=== PATIENT | male | born 1965 | race African-American/Black ===

== ENCOUNTER 2019-03-17 20:01 | Inpatient (IN) | payer OTHER ==
[2019-03-17 23:25] VITALS: BMI 29.5
--- NOTE | 2019-03-18 04:25 | HP ---
COWS - Scale Resting Pulse: 1= [place] 81-100 Sweatin= Chills/Flushing Restless Observation: 1= Difficult to Sit Still Pupil Size: 0= Normal to Room Light Bone or Joint Aches: 4=Acute Joint/Muscle Pain Runny Nose/ Eye Tearin= None GI Upset > 30mins: 3= Vomiting/Diarrhea (vomiting x 3, diarrhea x 2) Tremor Observation: 4= Gross Tremor/Twitching Yawning Observation: 1= 1-2x During Session Anxiety or Irritability: 2=Irritable/Anxious Goose Flesh Skin: 3=Piloerection COWS Score: 20 CIWA Score - Admission Criteria OASAS Guidelines: Admission for Medically Managed Detox: Requires at least one of the followin. CIWA greater than 12 2. Seizures within the past 24 hours 3. Delirium tremens within the past 24 hours 4. Hallucinations within the past 24 hours 5. Acute intervention needed for co occurring medical disorder 6. Acute intervention needed for co occurring psychiatric disorder 7. Severe withdrawal that cannot be handled at a lower level of care (continued vomiting, continued diarrhea, abnormal vital signs) requiring intravenous medication and/or fluids 8. Admission ROS [facility] Chief Complaint: Alcohol withdrawal symptoms Allergies/Adverse Reactions: Allergies Allergy/AdvReac Type Severity Reaction Status Date / Time No Known Allergies Allergy Verified 03/17/19 23:14 History of Present Illness: 54 years old male with a long history of alcohol dependence is seeking admission to detox. Patient has be3en in multiple detox and reports insignificant period of sobriety. He has medical history of hypertension, GERD and depression. He denies suicidal ideation at this time. Patient is on Methadone4 70mg tablet at [facility]. Dose is yet to be identified by the nurse Exam Limitations: No Limitations - Ebola screening Have you traveled outside of the country in the last 21 days: No (N) Have you had contact with anyone from an Ebola affected area: No Do you have a fever: No - Review of Systems Constitutional: Chills, Loss of Appetite, Malaise, Changes in sleep EENT: reports: No Symptoms Reported Respiratory: reports: No Symptoms reported Cardiac: reports: No Symptoms Reported GI: reports: Diarrhea, Nausea, Poor Appetite, Poor Fluid Intake, Abdominal cramping : reports: No Symptoms Reported Musculoskeletal: reports: Back Pain, Joint Pain, Muscle Pain Integumentary: reports: Dryness, Flushing Neuro: reports: Tremors Endocrine: reports: No Symptoms Reported Hematology: reports: No Symptoms Reported Psychiatric: reports: Anxious Other Systems: Reviewed and Negative Patient History - Patient Medical History Hx Asthma: Yes (Pt is on MDI.) Hx Chronic Obstructive Pulmonary Disease (COPD): No Hx Cardiac Disorders: No Hx Hypertension: Yes (on meds.) Hx Seizures: No Hx Diabetes: No Hx Gastrointestinal Disorders: Yes (Pt has GERD.) Hx Liver Disease: No Hx Genitourinary Disorders: No Hx Sexually Transmitted Disorders: No Hx Renal Disease (ESRD): No Hx Thyroid Disease: No Hx Human Immunodeficiency Virus (HIV): No (last 03/31) Hx Hepatitis C: Yes Hx Depression: Yes Hx Suicide Attempt: No Hx Bipolar Disorder: No Hx Schizophrenia: No - Patient Surgical History Past Surgical History: Yes Hx Neurologic Surgery: No Hx Cataract Extraction: No Hx Cardiac Surgery: No Hx Lung Surgery: No Hx Abdominal Surgery: No Hx Appendectomy: No Hx Cholecystectomy: No Hx Genitourinary Surgery: No Hx Section: No Hx Orthopedic Surgery: No Other Surgical History: SKIN GRAFT at agec 6 Anesthesia Reaction: No - PPD History Previous Implant?: No (PPD POSITIVE) PPD to be Administered?: No - Reproductive History Patient is a Female of Child Bearing Age (11 -55 yrs old): No (male) - Smoking Cessation Smoking history: Current every day smoker Have you smoked in the past 12 months: Yes Aproximately how many cigarettes per day: 4 Hx Chewing Tobacco Use: No Initiated information on smoking cessation: Yes 'Breaking Loose' booklet given: 03/18/19 - Substance & Tx. History Hx Alcohol Use: Yes Hx Substance Use: Yes Substance Use Type: Alcohol, Cocaine Hx Substance Use Treatment: Yes - Substances abused Alcohol Substance route: Oral Frequency: Daily Amount used: 3 pints Age of first use: 18 Date of last use: 03/17/19 Family Disease History - Family Disease History Family History: Denies Admission Physical Exam BHS - Vital Signs Vital Signs: Vital Signs - 24 hr 03/17/19 23:16 Temperature 98.6 F Pulse Rate 87 Respiratory 20 Rate Blood Pressure 160/101 H - Physical General Appearance: Yes: Moderate Distress, Tremorous, Irritable, Anxious HEENTM: Yes: Within Normal Limits Respiratory: Yes: Lungs Clear, Normal Breath Sounds, No Respiratory Distress Neck: Yes: Supple Breast: Yes: Breast Exam Deferred Cardiology: Yes: Regular Rhythm, Regular Rate Abdominal: Yes: Normal Bowel Sounds Genitourinary: Yes: Within Normal Limits Back: Yes: Normal Inspection Musculoskeletal: Yes: Within Normal Limits Extremities: Yes: Tremors Neurological: Yes: Within Normal Limits Integumentary: Yes: Warm Lymphatic: Yes: Within Normal Limits Cleared for Admission S - Detox or Rehab [facility] Level of Care: Medically Managed Detox Regimen/Protocol: Librium Breathalyzer - Breathalyzer Breathalyzer: 0.070 Urine Drug Screen - Test Device Lot number: [id number] Expiration date: 11/13/20 - Control Is test valid?: Yes - Results Drug screen NEGATIVE: No Urine drug screen results: MTD-Methadone, BZO-Benzodiazepines Inpatient Rehab Admission - Rehab Decision to Admit Inpatient rehab admission?: No
[2019-03-18] MEDS ORDERED: MENTHOL/PHENOL 1 EACH UD MM PRN (04:36)
[2019-03-18] MEDS ORDERED: IBUPROFEN 400 MG TABLET (FP) PO PRN (04:36)
[2019-03-18] MEDS ORDERED: ACETAMINOPHEN 325 MG TABLET (FP) PO PRN ×2 (04:36)
[2019-03-18] MEDS ORDERED: MAG HYDROX/AL HYDROX/SIMETH 30 ML UNIT-DOSE CUP PO PRN (04:36)
[2019-03-18] MEDS ORDERED: MAGNESIUM CITRATE 300 ML BOTTLE PO PRN (04:36)
[2019-03-18] MEDS ORDERED: BISMUTH SUBSALICYLATE 524 MG/30 ML UD PO PRN (04:36)
[2019-03-18] MEDS ORDERED: hydrOXYzine PAMOATE 25 MG CAPSULE (FP) PO PRN (04:36)
[2019-03-18] MEDS ORDERED: MAGNESIUM HYDROX 2400MG/30ML ORAL SUSPENSION 30 ML CUP PO PRN (04:36)
[2019-03-18] MEDS ORDERED: chlordiazePOXIDE HCL 10 MG CAPSULE PO PRN (04:48)
[2019-03-18] MEDS: chlordiazePOXIDE HCL 25 MG CAPSULE PO SCH ×3 (05:45→22:02)
[2019-03-18] MEDS: METHOCARBAMOL 500 MG TABLET PO PRN ×2 (07:22→14:57)
[2019-03-18] MEDS ORDERED: METHADONE HCL 10 MG TABLET PO ONE (08:26)
[2019-03-18] MEDS ORDERED: METHADONE 40 MG, METHADONE 30 MG PO ONE (08:35)
[2019-03-18] MEDS ORDERED: METHADONE HCL 40 MG DISPERSABLE TABLET ONE (08:52)
[2019-03-18] MEDS ORDERED: METHADONE HCL 10 MG TABLET ONE (08:52)
[2019-03-18] MEDS: PRENATAL VITAMINS W/ FOLIC ACID TABLET (FP) PO SCH (10:07)
[2019-03-18] MEDS: ENALAPRIL MALEATE 10 MG TABLET (FP) PO SCH ×2 (10:07→22:48)
--- NOTE | 2019-03-18 14:19 | PN ---
S Progress Note Note: SAW PT ON ROUNDS SITTING IN WHEELCHAIR AND ADMITTED VERY EARLY THIS MORNING. PT C/O MUSCLE SPASMS TO HIS LEGS AND HANDS. STATES IT'S CHRONIC AND GOES AWAY AFTER AWHILE. PT APPEARS TIRED AND SLIGHTLY DROWSY. Vital Signs 03/18/19 03/18/19 03/18/19 07:02 08:17 09:36 Temperature 98.2 F 98.2 F 98.4 F Pulse Rate 91 H 91 H 93 H Respiratory 20 20 18 Rate Blood Pressure 140/80 140/80 140/81 03/18/19 13:20 Temperature 98.3 F Pulse Rate 88 Respiratory 18 Rate Blood Pressure 146/79 MONITOR PT COMFORT CONTINUE DETOX
[2019-03-18] MEDS: THIAMINE HCL 100 MG TABLET (FP) PO SCH (22:02)
[2019-03-18] MEDS: MELATONIN 5 MG TABLETS PO PRN (22:02)
[2019-03-19] MEDS ORDERED: METHADONE HCL 10 MG TABLET ONE (04:26)
[2019-03-19] MEDS ORDERED: METHADONE HCL 40 MG DISPERSABLE TABLET ONE (04:27)
[2019-03-19] MEDS: chlordiazePOXIDE 5 MG CAPSULE PO SCH ×2 (05:26→12:27)
[2019-03-19] MEDS: METHADONE 40 MG, METHADONE 30 MG PO SCH (05:27)
[2019-03-19] MEDS ORDERED: METHADONE HCL 10 MG TABLET PO SCH (06:00)
[2019-03-19] MEDS: ENALAPRIL MALEATE 10 MG TABLET (FP) PO SCH ×2 (10:09→22:32)
[2019-03-19] MEDS: PRENATAL VITAMINS W/ FOLIC ACID TABLET (FP) PO SCH (10:09)
--- NOTE | 2019-03-19 10:40 | PN ---
BHS COWS - Scale Resting Pulse: 1= [place] 81-100 Sweatin= Beads of Sweat on Face Restless Observation: 1= Difficult to Sit Still Pupil Size: 0= Normal to Room Light Bone or Joint Aches: 2= Severe Diffuse Aches Runny Nose/ Eye Tearin= None GI Upset > 30mins: 0= None Tremor Observation of Outstretched Hands: 2= Slight Tremor Visible Yawning Observation: 1= 1-2x During Session Anxiety or Irritability: 2=Irritable/Anxious Goose Flesh Skin: 0=Smooth Skin COWS Score: 12 S Progress Note (SOAP) Subjective: c/o sweats, irritability, shakes, and muscle pain. Objective: 03/19/19 10:39 Vital Signs 03/19/19 03/19/19 03/19/19 03:30 06:00 09:26 Temperature 98.6 F 98.8 F Pulse Rate 94 H 119 H Respiratory 18 18 14 Rate Blood Pressure 146/87 122/75 Labs pending. Assessment: 03/19/19 10:39 AOX3, in no acute respiratory distress Full ROM withdrawal symptoms. Plan: continue detox.
--- NOTE | 2019-03-19 12:42 | PN ---
S CIWA - CIWA Score Nausea/Vomitin-No Nausea/No Vomiting Muscle Tremors: 2 Anxiety: 3 Agitation: 2 Paroxysmal Sweats: 3 Orientation: 0-Oriented Tacttile Disturbances: 0-None Auditory Disturbances: 0-None Visual Disturbances: 0-None Headache: 2-Mild CIWA-Ar Total Score: 12
[2019-03-19 13:03] LABS: HEMATOCRIT 36.3 % (35.4-49); MCH 34.5 pg (25.7-33.7); MEAN CELL VOLUME 104.4 fl (80-96); MEAN PLT VOLUME 10.3 fl (7.5-11.1); RBC 3.47 M/mm3 (4.00-5.60)
[2019-03-19 13:36] LABS: PLATELET COUNT 31 K/MM3 (134-434)
[2019-03-19 13:43] LABS: ALBUMIN 3.4 g/dl (3.4-5.0); BILIRUBIN,TOTAL 2.6 mg/dL (0.2-1); BLOOD UREA NITROGEN 4.7 mg/dL (7-18); CALCIUM 8.3 mg/dL (8.5-10.1); CREATININE 0.6 mg/dL (0.55-1.3); POTASSIUM 3.3 mmol/L (3.5-5.1); TOT PROT 8.4 g/dl (6.4-8.2)
--- NOTE | 2019-03-19 14:46 | PN ---
[facility] Progress Note Note: S: I was called by the RN that pt has a critical value of platelet count 31k/ mm3. Pt states that one and a half weeks ago he went to the hospital and when he was given a bottle to urinate for a urine sample, "I pee blood". Pt denies any bleeding at the moment. Denies any dizziness, lightheadedness, N/V, chest pain, or SOB at this time. O: Vital Signs 03/19/19 03/19/19 09:26 14:24 Temperature 98.8 F 97.2 F L Pulse Rate 119 H 107 H Respiratory 14 16 Rate Blood Pressure 122/75 124/78 Laboratory Last Values WBC 3.0 K/mm3 (4.0-10.0) L 03/19/19 08:00 RBC 3.47 M/mm3 (4.00-5.60) L 03/19/19 08:00 Hgb 12.0 GM/dL (11.7-16.9) 03/19/19 08:00 Hct 36.3 % (35.4-49) 03/19/19 08:00 MCV 104.4 fl (80-96) H 03/19/19 08:00 MCH 34.5 pg (25.7-33.7) H 03/19/19 08:00 MCHC 33.0 g/dl (32.0-35.9) 03/19/19 08:00 RDW 15.0 % (11.9-15.9) D 03/19/19 08:00 Plt Count 31 K/MM3 (134-434) L* D 03/19/19 08:00 MPV 10.3 fl (7.5-11.1) 03/19/19 08:00 Sodium 139 mmol/L (136-145) 03/19/19 08:00 Potassium 3.3 mmol/L (3.5-5.1) L 03/19/19 08:00 Chloride 101 mmol/L (98-107) 03/19/19 08:00 Carbon Dioxide 32 mmol/L (21-32) 03/19/19 08:00 Anion Gap 6 MMOL/L (8-16) L 03/19/19 08:00 BUN 4.7 mg/dL (7-18) L 03/19/19 08:00 Creatinine 0.6 mg/dL (0.55-1.3) 03/19/19 08:00 Est GFR (CKD-EPI)AfAm 133.04 03/19/19 08:00 Est GFR (CKD-EPI)NonAf 114.79 03/19/19 08:00 Random Glucose 89 mg/dL (74-106) 03/19/19 08:00 Calcium 8.3 mg/dL (8.5-10.1) L 03/19/19 08:00 Total Bilirubin 2.6 mg/dL (0.2-1) H 03/19/19 08:00 AST 244 U/L (15-37) H 03/19/19 08:00 ALT 66 U/L (13-61) H 03/19/19 08:00 Alkaline Phosphatase 83 U/L (45-117) 03/19/19 08:00 Total Protein 8.4 g/dl (6.4-8.2) H 03/19/19 08:00 Albumin 3.4 g/dl (3.4-5.0) 03/19/19 08:00 RPR Titer Nonreactive (NONREACTIVE) 03/19/19 08:00 Labs reviewed. A: Pt was seen at bedside alert and oriented x3 and in no respiratory distress. Thrombocytopenia. Pt has history of thrombocytopenia since 2016. Hypokalemia. K+ level of 3.3 AST is 244U/L P: urinalysis repeat cmp repeat cbc potassium chloride 40meq po once. Change librium protocol to ativan protocol. monitor for any bleeding.
[2019-03-19] MEDS ORDERED: POTASSIUM CHLORIDE TABS 20 MEQ TABLET.ER (FP) PO ONE (14:48)
[2019-03-19] MEDS: LORazepam 2 MG TABLET PO SCH ×2 (18:18→22:33)
[2019-03-19] MEDS: THIAMINE HCL 100 MG TABLET (FP) PO SCH (22:32)
[2019-03-19] MEDS: MELATONIN 5 MG TABLETS PO PRN (22:33)
[2019-03-20] MEDS ORDERED: chlordiazePOXIDE HCL 10 MG CAPSULE PO PRN
[2019-03-20] MEDS ORDERED: METHADONE HCL 10 MG TABLET ONE (04:07)
[2019-03-20] MEDS ORDERED: METHADONE HCL 40 MG DISPERSABLE TABLET ONE (04:08)
[2019-03-20] MEDS ORDERED: chlordiazePOXIDE HCL 10 MG CAPSULE PO SCH (05:00)
[2019-03-20] MEDS: LORazepam 2 MG TABLET PO SCH ×4 (05:49→22:10)
[2019-03-20] MEDS: METHADONE 40 MG, METHADONE 30 MG PO SCH (05:50)
[2019-03-20] MEDS: ENALAPRIL MALEATE 10 MG TABLET (FP) PO SCH ×2 (10:13→22:10)
[2019-03-20] MEDS: PRENATAL VITAMINS W/ FOLIC ACID TABLET (FP) PO SCH (10:13)
[2019-03-20 10:20] LABS: BASO % 0.6 % (0-2.0); EOS % 1.2 % (0-4.5); HEMATOCRIT 38.3 % (35.4-49); HEMOGLOBIN 12.7 GM/dL (11.7-16.9); LYMPH % 39.2 % (8-40); MCH 34.8 pg (25.7-33.7); MCHC 33.2 g/dl (32.0-35.9); MEAN CELL VOLUME 104.9 fl (80-96); RBC 3.65 M/mm3 (4.00-5.60); RDW 14.6 % (11.9-15.9); WHITE BLOOD COUNT 4.5 K/mm3 (4.0-10.0)
[2019-03-20 10:30] LABS: ALBUMIN 3.5 g/dl (3.4-5.0); BILIRUBIN,TOTAL 2.6 mg/dL (0.2-1); BLOOD UREA NITROGEN 7.4 mg/dL (7-18); CREATININE 0.8 mg/dL (0.55-1.3); POTASSIUM 3.7 mmol/L (3.5-5.1); TOT PROT 8.8 g/dl (6.4-8.2)
--- NOTE | 2019-03-20 10:42 | PN ---
S CIWA - CIWA Score Nausea/Vomitin-Mild Nausea/No Vomiting Muscle Tremors: 1-None Visible, but [place] Anxiety: 1-Mildly Anxious Agitation: 0-Normal Activity Paroxysmal Sweats: 1-Minimal Palms Moist Orientation: 0-Oriented Tacttile Disturbances: 1-Very Mild Itch/Numbness Auditory Disturbances: 0-None Visual Disturbances: 0-None Headache: 1-Very Mild CIWA-Ar Total Score: 6 BHS COWS - Scale Resting Pulse: 1= [place] 81-100 Sweatin= Chills/Flushing Restless Observation: 1= Difficult to Sit Still Pupil Size: 1= Pupils >than Normal Bone or Joint Aches: 1= Mild Discomfort Runny Nose/ Eye Tearin= None GI Upset > 30mins: 0= None Tremor Observation of Outstretched Hands: 1= Tremor [place], Not Seen Yawning Observation: 0= None Anxiety or Irritability: 1=Feels Anxious/Irritable Goose Flesh Skin: 0=Smooth Skin COWS Score: 7 S Progress Note (SOAP) Subjective: interrupted sleep, mild sweats Objective: 03/20/19 10:38 Vital Signs Temperature 98.2 F 03/20/19 06:41 Pulse Rate 90 03/20/19 06:41 Respiratory Rate 18 03/20/19 06:41 Blood Pressure 147/91 03/20/19 06:41 O2 Sat by Pulse Oximetry (%) Laboratory Tests 03/19/19 03/19/19 03/19/19 08:00 08:00 08:00 WBC 3.0 L RBC 3.47 L Hgb 12.0 Hct 36.3 MCV 104.4 H MCH 34.5 H MCHC 33.0 RDW 15.0 D Plt Count 31 L* D MPV 10.3 Sodium 139 Potassium 3.3 L Chloride 101 Carbon Dioxide 32 Anion Gap 6 L BUN 4.7 L Creatinine 0.6 Est GFR (CKD-EPI)AfAm 133.04 Est GFR (CKD-EPI)NonAf 114.79 Random Glucose 89 Calcium 8.3 L Total Bilirubin 2.6 H AST 244 H ALT 66 H Alkaline Phosphatase 83 Total Protein 8.4 H Albumin 3.4 RPR Titer Nonreactive 03/20/19 07:50 WBC RBC Hgb Hct MCV MCH MCHC RDW Plt Count MPV Sodium 136 Potassium 3.7 Chloride 100 Carbon Dioxide 28 Anion Gap 7 L BUN 7.4 Creatinine 0.8 Est GFR (CKD-EPI)AfAm 118.20 Est GFR (CKD-EPI)NonAf 101.99 Random Glucose 102 Calcium 9.0 Total Bilirubin 2.6 H AST 212 H ALT 66 H Alkaline Phosphatase 91 Total Protein 8.8 H Albumin 3.5 RPR Titer pt lying in , stood up well and ambulating well , in nad no bleeding Assessment: 03/20/19 10:40 withdrawal sx's thrombocytopenia -no bleeding , repeat labs pending leucocytosis , repeat pending elevated transaminases hypokalemia corrected 03/20/19 10:46 Plan: cont. detox increase fluids d/c tylenol d/c motrin f/up pending labs
[2019-03-20 10:50] LABS: PLATELET COUNT 41 K/MM3 (134-434)
[2019-03-20] MEDS: THIAMINE HCL 100 MG TABLET (FP) PO SCH (22:10)
[2019-03-20] MEDS: MELATONIN 5 MG TABLETS PO PRN (22:10)
[2019-03-21] MEDS ORDERED: METHADONE HCL 10 MG TABLET ONE (04:30)
[2019-03-21] MEDS ORDERED: METHADONE HCL 40 MG DISPERSABLE TABLET ONE (04:30)
[2019-03-21] MEDS ORDERED: chlordiazePOXIDE HCL 10 MG CAPSULE PO ONE (05:00)
[2019-03-21] MEDS: LORazepam 1 MG TABLET PO SCH ×2 (05:39→10:47)
[2019-03-21] MEDS: METHADONE 40 MG, METHADONE 30 MG PO SCH (05:40)
[2019-03-21 09:39] VITALS: PULSE 101
[2019-03-21] MEDS: ENALAPRIL MALEATE 10 MG TABLET (FP) PO SCH (10:47)
[2019-03-21] MEDS: PRENATAL VITAMINS W/ FOLIC ACID TABLET (FP) PO SCH (10:47)
[2019-03-21 13:18] VITALS: BP 102/65
[2019-03-21 13:55] VITALS: TEMP 98.1
--- NOTE | 2019-03-21 15:50 | PN ---
S CIWA - CIWA Score Nausea/Vomitin-No Nausea/No Vomiting Muscle Tremors: 2 Anxiety: 3 Agitation: 3 Paroxysmal Sweats: 3 Orientation: 1-Uncertain about Date Tacttile Disturbances: 0-None Auditory Disturbances: 0-None Visual Disturbances: 0-None Headache: 0-None Present CIWA-Ar Total Score: 12 BHS Progress Note (SOAP) Subjective: Pt c/o anxiety, sweats, and shakes. Objective: 03/21/19 15:43 Vital Signs 03/21/19 03/21/19 03/21/19 07:55 09:38 13:17 Temperature 98.1 F 97.5 F L 98.4 F Pulse Rate 99 H 101 H 101 H Respiratory 20 18 18 Rate Blood Pressure 120/75 100/68 102/65 03/21/19 13:54 Temperature 98.1 F Pulse Rate 101 H Respiratory 18 Rate Blood Pressure 102/65 Lab Results WBC 4.5 K/mm3 (4.0-10.0) 03/20/19 07:50 RBC 3.65 M/mm3 (4.00-5.60) L 03/20/19 07:50 Hgb 12.7 GM/dL (11.7-16.9) 03/20/19 07:50 Hct 38.3 % (35.4-49) 03/20/19 07:50 MCV 104.9 fl (80-96) H 03/20/19 07:50 MCHC 33.2 g/dl (32.0-35.9) 03/20/19 07:50 RDW 14.6 % (11.9-15.9) 03/20/19 07:50 Plt Count 41 K/MM3 (134-434) L D 03/20/19 07:50 Sodium 136 mmol/L (136-145) 03/20/19 07:50 Potassium 3.7 mmol/L (3.5-5.1) 03/20/19 07:50 Chloride 100 mmol/L (98-107) 03/20/19 07:50 Carbon Dioxide 28 mmol/L (21-32) 03/20/19 07:50 Anion Gap 7 MMOL/L (8-16) L 03/20/19 07:50 BUN 7.4 mg/dL (7-18) 03/20/19 07:50 Creatinine 0.8 mg/dL (0.55-1.3) 03/20/19 07:50 Random Glucose 102 mg/dL (74-106) 03/20/19 07:50 Calcium 9.0 mg/dL (8.5-10.1) 03/20/19 07:50 Labs reviewed. Assessment: Pt is alert and oriented x1, and in no respiratory distress. 03/21/19 15:52 Plan: continue detox. continue to monitor.
--- NOTE | 2019-03-21 15:57 | DS ---
[facility] Summary Admission Date: 03/18/19 Discharge Date: 03/21/19 (Left AMA) - History Present History: Alcohol Dependence, Cocaine Dependence, MMTP Additional Comments: During morning rounds, pt is alert and verbally responsive but unable to state the date, year and the current present of the [facility]. Pt is agitated because he wants to leave AMA. Pt states he does not know where he leaves. Pt is disoriented, verbal report given to Dr Hollis at [facility] ER for evaluation of change in mental status. Upon arrival of the EMS, as per EMS pt is refusing to go to the ER for evaluation and also as per EMS pt is answering questions correctly. Pt refused to go with EMS. Importance of staying and completing his detox protocol explained to pt but to no avail. Pt left AMA. Pertinent Past History: H/o alcohol, cocaine use disorder, HTN, GERD, and Asthma. - Physical Exam Results Vital Signs: Vital Signs Temperature 98.1 F 03/21/19 13:54 Pulse Rate 101 H 03/21/19 13:54 Respiratory Rate 18 03/21/19 13:54 Blood Pressure 102/65 03/21/19 13:54 O2 Sat by Pulse Oximetry (%) Vital Signs 03/21/19 03/21/19 03/21/19 09:38 13:17 13:54 Temperature 97.5 F L 98.4 F 98.1 F Pulse Rate 101 H 101 H 101 H Respiratory 18 18 18 Rate Blood Pressure 100/68 102/65 102/65 Lab Results WBC 4.5 K/mm3 (4.0-10.0) 03/20/19 07:50 RBC 3.65 M/mm3 (4.00-5.60) L 03/20/19 07:50 Hgb 12.7 GM/dL (11.7-16.9) 03/20/19 07:50 Hct 38.3 % (35.4-49) 03/20/19 07:50 MCV 104.9 fl (80-96) H 03/20/19 07:50 MCHC 33.2 g/dl (32.0-35.9) 03/20/19 07:50 RDW 14.6 % (11.9-15.9) 03/20/19 07:50 Plt Count 41 K/MM3 (134-434) L D 03/20/19 07:50 Sodium 136 mmol/L (136-145) 03/20/19 07:50 Potassium 3.7 mmol/L (3.5-5.1) 03/20/19 07:50 Chloride 100 mmol/L (98-107) 03/20/19 07:50 Carbon Dioxide 28 mmol/L (21-32) 03/20/19 07:50 Anion Gap 7 MMOL/L (8-16) L 03/20/19 07:50 BUN 7.4 mg/dL (7-18) 03/20/19 07:50 Creatinine 0.8 mg/dL (0.55-1.3) 03/20/19 07:50 Random Glucose 102 mg/dL (74-106) 03/20/19 07:50 Calcium 9.0 mg/dL (8.5-10.1) 03/20/19 07:50 Labs noted. Pertinent Admission Physical Exam Findings: withdrawal symptoms. - Treatment Hospital Course: Detox Protocol Followed - Medication Discharge Medications: Ambulatory Orders Enalapril Maleate [Vasotec] 20 mg PO BID 07/18/16 Ibuprofen [Motrin -] 600 mg PO Q6H PRN 07/18/16 Omeprazole 20 mg PO BID 07/18/16 Methadone [Dolophine -] 70 mg PO DAILY 03/17/19 - Diagnosis (1) Alcohol dependence with uncomplicated withdrawal Status: Acute (2) Asthma Status: Chronic (3) Hepatitis C Status: Acute (4) Hypertension Status: Chronic (5) Methadone maintenance therapy patient Status: Acute (6) Nicotine dependence Status: Acute (7) Syncope Status: Acute - AMA Did Patient Leave Against Medical Advice: Yes
[2019-03-22] MEDS ORDERED: LORazepam 0.5 MG TABLET PO PRN
[2019-03-22] MEDS ORDERED: LORazepam 0.5 MG TABLET PO SCH (05:00)
[2019-03-23] MEDS ORDERED: LORazepam 0.5 MG TABLET PO ONE (05:00)
== END 2019-03-21 15:16 | disposition left against medical advice (07) | DRG 770 ==
LOC: YASAS 20:01 → Y6N 03-18 04:47
PROVIDERS: ADMIT Surgery; ATTEND Surgery
PROC: HZ2ZZZZ Detoxification Services for Substance Abuse Treatment (ICD-10-PCS; principal; 2019-03-18)
DX: F10.230 Alcohol dependence with withdrawal, uncomplicated (principal); F11.20 Opioid dependence, uncomplicated; F14.20 Cocaine dependence, uncomplicated; F13.10 Sedative, hypnotic or anxiolytic abuse, uncomplicated; F17.210 Nicotine dependence, cigarettes, uncomplicated; I10 Essential (primary) hypertension; J45.909 Unspecified asthma, uncomplicated; K21.9 Gastro-esophageal reflux disease without esophagitis; B18.2 Chronic viral hepatitis C; R55 Syncope and collapse; D69.6 Thrombocytopenia, unspecified; D72.829 Elevated white blood cell count, unspecified; E87.6 Hypokalemia; R74.0 Nonspecific elevation of levels of transaminase and lactic acid dehydrogenase [LDH]; R76.11 Nonspecific reaction to tuberculin skin test without active tuberculosis
CPT/HCPCS: 36415; 71045-TC-FY; 80053; 85025; 85027; 86593

== ENCOUNTER 2020-11-08 16:36 | Inpatient (IN) | payer OTHER ==
[2020-11-08 17:47] VITALS: BMI 38.0
[2020-11-08] MEDS ORDERED: ONDANSETRON *ODT* 4 MG TABLET SL PRN (19:38)
[2020-11-08] MEDS ORDERED: ACETAMINOPHEN 325 MG TABLET (FP) PO PRN (19:38)
[2020-11-08] MEDS ORDERED: MAG HYDROX/AL HYDROX/SIMETH 30 ML UNIT-DOSE CUP PO PRN (19:38)
[2020-11-08] MEDS ORDERED: METHOCARBAMOL 500 MG TABLET PO PRN (19:38)
[2020-11-08] MEDS ORDERED: NICOTINE POLACRILEX 2 MG GUM BUC PRN (19:38)
[2020-11-08] MEDS ORDERED: hydrOXYzine PAMOATE 25 MG CAPSULE (FP) PO PRN (19:38)
[2020-11-08] MEDS ORDERED: MENTHOL/PHENOL 1 EACH UD MM PRN (19:38)
[2020-11-08] MEDS ORDERED: IBUPROFEN 400 MG TABLET (FP) PO PRN (19:38)
[2020-11-08] MEDS ORDERED: MAGNESIUM CITRATE 300 ML BOTTLE PO PRN (19:38)
[2020-11-08] MEDS ORDERED: chlordiazePOXIDE HCL 25 MG CAPSULE PO PRN (19:38)
[2020-11-08] MEDS ORDERED: BISMUTH SUBSALICYLATE 524 MG/30 ML UD PO PRN (19:38)
[2020-11-08] MEDS ORDERED: MAGNESIUM HYDROX 2400MG/30ML ORAL SUSPENSION 30 ML CUP PO PRN (19:38)
[2020-11-08] MEDS: MELATONIN 5 MG TABLETS PO SCH (22:36)
[2020-11-08] MEDS: FAMOTIDINE 20 MG TABLET PO SCH (22:36)
[2020-11-08] MEDS: LACTULOSE 20 GM/30 ML UDC (FOR ORAL USE ONLY) PO SCH (22:37)
[2020-11-08] MEDS: THIAMINE HCL 100 MG TABLET (FP) PO SCH (22:37)
[2020-11-08] MEDS: PRENATAL VITAMINS W/ FOLIC ACID TABLET (FP) PO SCH (23:07)
[2020-11-08] MEDS: chlordiazePOXIDE HCL 25 MG CAPSULE PO SCH (23:07)
[2020-11-08] MEDS: NICOTINE 7 MG/24 HOURS TOPICAL PATCH TD SCH (23:08)
[2020-11-08] MEDS: MINERAL OIL/PETROLAT/WATER TOPICAL CREAM 113 GM JAR TP SCH (23:08)
[2020-11-09] MEDS: FUROSEMIDE 40 MG TABLET (FP) PO SCH ×2 (05:53→17:52)
[2020-11-09] MEDS: chlordiazePOXIDE HCL 25 MG CAPSULE PO SCH ×4 (05:54→22:08)
[2020-11-09] MEDS ORDERED: FUROSEMIDE 40 MG TABLET (FP) PO SCH (06:00)
[2020-11-09] MEDS ORDERED: METHADONE HCL 10 MG TABLET PO SCH (09:30)
[2020-11-09] MEDS ORDERED: METHADONE HCL 40 MG DISPERSABLE TABLET ONE (09:46)
[2020-11-09] MEDS ORDERED: METHADONE HCL 10 MG TABLET ONE (09:46)
[2020-11-09] MEDS: SPIRONOLACTONE 25 MG TABLET PO SCH (10:14)
[2020-11-09] MEDS: LACTULOSE 20 GM/30 ML UDC (FOR ORAL USE ONLY) PO SCH ×2 (10:14→22:13)
[2020-11-09] MEDS: NADOLOL 20 MG TABLET (FP) PO SCH (10:14)
[2020-11-09] MEDS: METHADONE 40 MG, METHADONE 30 MG PO SCH (10:14)
[2020-11-09] MEDS: FAMOTIDINE 20 MG TABLET PO SCH ×2 (10:15→22:08)
[2020-11-09] MEDS: NICOTINE 7 MG/24 HOURS TOPICAL PATCH TD SCH (10:15)
[2020-11-09] MEDS: MINERAL OIL/PETROLAT/WATER TOPICAL CREAM 113 GM JAR TP SCH ×2 (10:15→22:10)
[2020-11-09] MEDS: PRENATAL VITAMINS W/ FOLIC ACID TABLET (FP) PO SCH (10:15)
[2020-11-09 13:46] LABS: POTASSIUM 3.4 mmol/L (3.5-5.1)
[2020-11-09 13:48] LABS: HEMATOCRIT 31.7 % (35.4-49); MCH 27.3 pg (25.7-33.7); MCHC 31.5 g/dl (32.0-35.9); MEAN CELL VOLUME 86.8 fl (80-96); MEAN PLT VOLUME 10.1 fl (7.5-11.1); PLATELET COUNT 107 K/MM3 (134-434); RBC 3.65 M/mm3 (4.00-5.60); RDW 22.3 % (11.9-15.9); WHITE BLOOD COUNT 5.4 K/mm3 (4.0-10.0)
[2020-11-09 13:50] LABS: ALBUMIN 3.3 g/dl (3.4-5.0)
[2020-11-09 13:51] LABS: BLOOD UREA NITROGEN 3.5 mg/dL (7-18); CALCIUM 8.3 mg/dL (8.5-10.1)
[2020-11-09 13:53] LABS: CREATININE 0.7 mg/dL (0.55-1.3)
[2020-11-09 13:55] LABS: BILIRUBIN,TOTAL 2.2 mg/dL (0.2-1)
[2020-11-09 13:58] LABS: TOT PROT 9.4 g/dl (6.4-8.2)
[2020-11-09] MEDS ORDERED: POTASSIUM CHLORIDE ORAL LIQUID 20 MEQ/15 ML PO ONE (14:32)
[2020-11-09] MEDS: GABAPENTIN 300 MG CAPSULE PO SCH (22:08)
[2020-11-09] MEDS: POTASSIUM CHLORIDE ORAL LIQUID 20 MEQ/15 ML PO SCH (22:09)
[2020-11-09] MEDS: MELATONIN 5 MG TABLETS PO SCH (22:09)
[2020-11-09] MEDS: THIAMINE HCL 100 MG TABLET (FP) PO SCH (22:12)
[2020-11-10] MEDS ORDERED: METHADONE HCL 40 MG DISPERSABLE TABLET ONE (05:06)
[2020-11-10] MEDS ORDERED: METHADONE HCL 10 MG TABLET ONE (05:06)
[2020-11-10] MEDS: chlordiazePOXIDE HCL 25 MG CAPSULE PO SCH ×4 (06:41→22:23)
[2020-11-10] MEDS: METHADONE 40 MG, METHADONE 30 MG PO SCH (06:41)
[2020-11-10] MEDS: FUROSEMIDE 40 MG TABLET (FP) PO SCH ×2 (06:45→18:22)
[2020-11-10 11:16] LABS: POTASSIUM 3.3 mmol/L (3.5-5.1)
[2020-11-10 11:18] LABS: ALBUMIN 3.1 g/dl (3.4-5.0); CALCIUM 8.1 mg/dL (8.5-10.1)
[2020-11-10 11:21] LABS: CREATININE 0.9 mg/dL (0.55-1.3)
[2020-11-10 11:23] LABS: BILIRUBIN,TOTAL 2.6 mg/dL (0.2-1); TOT PROT 9.1 g/dl (6.4-8.2)
[2020-11-10 11:29] LABS: HEMATOCRIT 32.6 % (35.4-49); HEMOGLOBIN 10.3 GM/dL (11.7-16.9); MCH 27.5 pg (25.7-33.7); MCHC 31.8 g/dl (32.0-35.9); MEAN CELL VOLUME 86.4 fl (80-96); MEAN PLT VOLUME 9.7 fl (7.5-11.1); PLATELET COUNT 107 K/MM3 (134-434); RBC 3.77 M/mm3 (4.00-5.60); RDW 22.2 % (11.9-15.9); WHITE BLOOD COUNT 6.3 K/mm3 (4.0-10.0)
[2020-11-10 11:33] LABS: INR 1.73 (0.83-1.09); PROTHROMBIN TIME (PATIENT) 20.6 SEC (9.7-13.0)
[2020-11-10] MEDS: MINERAL OIL/PETROLAT/WATER TOPICAL CREAM 113 GM JAR TP SCH ×2 (11:44→22:26)
[2020-11-10] MEDS: NADOLOL 20 MG TABLET (FP) PO SCH (11:44)
[2020-11-10] MEDS: SPIRONOLACTONE 25 MG TABLET PO SCH (11:44)
[2020-11-10] MEDS: LACTULOSE 20 GM/30 ML UDC (FOR ORAL USE ONLY) PO SCH ×3 (11:44→22:21)
[2020-11-10] MEDS: FAMOTIDINE 20 MG TABLET PO SCH ×2 (11:48→22:23)
[2020-11-10] MEDS: GABAPENTIN 300 MG CAPSULE PO SCH ×2 (11:48→22:23)
[2020-11-10] MEDS: NICOTINE 7 MG/24 HOURS TOPICAL PATCH TD SCH (11:48)
[2020-11-10] MEDS: PRENATAL VITAMINS W/ FOLIC ACID TABLET (FP) PO SCH (11:48)
[2020-11-10] MEDS: POTASSIUM CHLORIDE ORAL LIQUID 20 MEQ/15 ML PO SCH ×2 (11:48→22:21)
[2020-11-10] MEDS: THIAMINE HCL 100 MG TABLET (FP) PO SCH (22:23)
[2020-11-10] MEDS: MELATONIN 5 MG TABLETS PO SCH (22:23)
[2020-11-11] MEDS ORDERED: chlordiazePOXIDE HCL 10 MG CAPSULE PO PRN
[2020-11-11] MEDS ORDERED: METHADONE HCL 10 MG TABLET ONE (04:17)
[2020-11-11] MEDS ORDERED: METHADONE HCL 40 MG DISPERSABLE TABLET ONE (04:17)
[2020-11-11] MEDS: chlordiazePOXIDE HCL 10 MG CAPSULE PO SCH ×4 (06:07→22:07)
[2020-11-11] MEDS: METHADONE 40 MG, METHADONE 30 MG PO SCH (06:08)
[2020-11-11] MEDS: FUROSEMIDE 40 MG TABLET (FP) PO SCH ×2 (07:28→19:27)
[2020-11-11] MEDS: NADOLOL 20 MG TABLET (FP) PO SCH (10:20)
[2020-11-11] MEDS: LACTULOSE 20 GM/30 ML UDC (FOR ORAL USE ONLY) PO SCH ×3 (10:20→19:27)
[2020-11-11] MEDS: SPIRONOLACTONE 25 MG TABLET PO SCH (10:20)
[2020-11-11] MEDS: MINERAL OIL/PETROLAT/WATER TOPICAL CREAM 113 GM JAR TP SCH ×2 (10:20→22:07)
[2020-11-11] MEDS: GABAPENTIN 300 MG CAPSULE PO SCH ×2 (10:21→22:07)
[2020-11-11] MEDS: PRENATAL VITAMINS W/ FOLIC ACID TABLET (FP) PO SCH (10:22)
[2020-11-11] MEDS: FAMOTIDINE 20 MG TABLET PO SCH ×2 (10:22→22:07)
[2020-11-11] MEDS: NICOTINE 7 MG/24 HOURS TOPICAL PATCH TD SCH (10:22)
[2020-11-11 11:42] LABS: HEMOGLOBIN 9.4 GM/dL (11.7-16.9); MCH 31.6 pg (25.7-33.7); MCHC 33.6 g/dl (32.0-35.9); MEAN PLT VOLUME 10.4 fl (7.5-11.1); PLATELET COUNT 85 K/MM3 (134-434); RBC 2.98 M/mm3 (4.00-5.60); RDW 17.2 % (11.9-15.9); WHITE BLOOD COUNT 6.7 K/mm3 (4.0-10.0)
[2020-11-11 11:50] LABS: POTASSIUM 4.5 mmol/L (3.5-5.1)
[2020-11-11 11:53] LABS: INR 1.97 (0.83-1.09); PROTHROMBIN TIME (PATIENT) 23.8 SEC (9.7-13.0)
[2020-11-11 12:09] LABS: BLOOD UREA NITROGEN 10.1 mg/dL (7-18)
[2020-11-11 12:11] LABS: CALCIUM 8.7 mg/dL (8.5-10.1); CREATININE 0.8 mg/dL (0.55-1.3)
[2020-11-11 12:17] LABS: ALBUMIN 1.7 g/dl (3.4-5.0); BILIRUBIN,TOTAL 1.9 mg/dL (0.2-1); TOT PROT 8.1 g/dl (6.4-8.2)
[2020-11-11] MEDS: MELATONIN 5 MG TABLETS PO SCH (22:07)
[2020-11-11] MEDS: THIAMINE HCL 100 MG TABLET (FP) PO SCH (22:07)
[2020-11-12] MEDS ORDERED: METHADONE HCL 40 MG DISPERSABLE TABLET ONE (04:39)
[2020-11-12] MEDS ORDERED: METHADONE HCL 10 MG TABLET ONE (04:39)
[2020-11-12] MEDS: LACTULOSE 20 GM/30 ML UDC (FOR ORAL USE ONLY) PO SCH ×3 (05:35→23:02)
[2020-11-12] MEDS: FUROSEMIDE 40 MG TABLET (FP) PO SCH ×2 (05:35→18:20)
[2020-11-12] MEDS: METHADONE 40 MG, METHADONE 30 MG PO SCH (05:36)
[2020-11-12] MEDS: chlordiazePOXIDE HCL 10 MG CAPSULE PO SCH ×2 (05:36→18:20)
[2020-11-12] MEDS: NADOLOL 20 MG TABLET (FP) PO SCH (10:16)
[2020-11-12] MEDS: PRENATAL VITAMINS W/ FOLIC ACID TABLET (FP) PO SCH (10:17)
[2020-11-12] MEDS: FAMOTIDINE 20 MG TABLET PO SCH ×2 (10:17→23:00)
[2020-11-12] MEDS: NICOTINE 7 MG/24 HOURS TOPICAL PATCH TD SCH (10:17)
[2020-11-12] MEDS: GABAPENTIN 300 MG CAPSULE PO SCH ×2 (10:17→22:59)
[2020-11-12] MEDS: SPIRONOLACTONE 25 MG TABLET PO SCH (10:17)
[2020-11-12] MEDS: MINERAL OIL/PETROLAT/WATER TOPICAL CREAM 113 GM JAR TP SCH ×2 (10:17→23:03)
[2020-11-12] MEDS: MELATONIN 5 MG TABLETS PO SCH (23:00)
[2020-11-12] MEDS: THIAMINE HCL 100 MG TABLET (FP) PO SCH (23:00)
[2020-11-13] MEDS ORDERED: chlordiazePOXIDE HCL 10 MG CAPSULE PO ONE (05:00)
[2020-11-13] MEDS ORDERED: METHADONE HCL 10 MG TABLET ONE (07:37)
[2020-11-13] MEDS ORDERED: METHADONE HCL 40 MG DISPERSABLE TABLET ONE (07:37)
[2020-11-13] MEDS: METHADONE 40 MG, METHADONE 30 MG PO SCH (07:45)
[2020-11-13] MEDS: LACTULOSE 20 GM/30 ML UDC (FOR ORAL USE ONLY) PO SCH ×5 (07:46→21:21)
[2020-11-13] MEDS: FUROSEMIDE 40 MG TABLET (FP) PO SCH ×2 (07:46→18:02)
[2020-11-13] MEDS: SPIRONOLACTONE 25 MG TABLET PO SCH (10:16)
[2020-11-13] MEDS: NADOLOL 20 MG TABLET (FP) PO SCH (10:17)
[2020-11-13] MEDS: GABAPENTIN 300 MG CAPSULE PO SCH ×2 (10:17→21:21)
[2020-11-13] MEDS: NICOTINE 7 MG/24 HOURS TOPICAL PATCH TD SCH (10:17)
[2020-11-13] MEDS: MINERAL OIL/PETROLAT/WATER TOPICAL CREAM 113 GM JAR TP SCH ×2 (10:17→21:22)
[2020-11-13] MEDS: PRENATAL VITAMINS W/ FOLIC ACID TABLET (FP) PO SCH (10:17)
[2020-11-13] MEDS: FAMOTIDINE 20 MG TABLET PO SCH ×2 (10:17→21:21)
[2020-11-13] MEDS: THIAMINE HCL 100 MG TABLET (FP) PO SCH (21:21)
[2020-11-13] MEDS: MELATONIN 5 MG TABLETS PO SCH (21:22)
[2020-11-14] MEDS ORDERED: METHADONE HCL 40 MG DISPERSABLE TABLET ONE (05:13)
[2020-11-14] MEDS ORDERED: METHADONE HCL 10 MG TABLET ONE (05:13)
[2020-11-14] MEDS: METHADONE 40 MG, METHADONE 30 MG PO SCH (07:24)
[2020-11-14] MEDS: LACTULOSE 20 GM/30 ML UDC (FOR ORAL USE ONLY) PO SCH ×2 (10:48→14:44)
[2020-11-14] MEDS: MINERAL OIL/PETROLAT/WATER TOPICAL CREAM 113 GM JAR TP SCH (10:48)
[2020-11-14] MEDS: SPIRONOLACTONE 25 MG TABLET PO SCH (10:48)
[2020-11-14] MEDS: NADOLOL 20 MG TABLET (FP) PO SCH (10:48)
[2020-11-14] MEDS: GABAPENTIN 300 MG CAPSULE PO SCH (10:49)
[2020-11-14] MEDS: FUROSEMIDE 40 MG TABLET (FP) PO SCH (10:49)
[2020-11-14] MEDS: NICOTINE 7 MG/24 HOURS TOPICAL PATCH TD SCH (10:50)
[2020-11-14] MEDS: PRENATAL VITAMINS W/ FOLIC ACID TABLET (FP) PO SCH (10:50)
[2020-11-14] MEDS: FAMOTIDINE 20 MG TABLET PO SCH (10:50)
[2020-11-14 14:31] VITALS: BP 101/64; PULSE 71; TEMP 97.5
== END 2020-11-14 17:23 | disposition other institution (70) | DRG 773 ==
LOC: YASAS 16:36 → Y6N 19:37
PROVIDERS: ADMIT Allergy & Immunology; ATTEND Allergy & Immunology
PROC: HZ2ZZZZ Detoxification Services for Substance Abuse Treatment (ICD-10-PCS; principal; 2020-11-08)
DX: F10.230 Alcohol dependence with withdrawal, uncomplicated (principal); F11.20 Opioid dependence, uncomplicated; F17.210 Nicotine dependence, cigarettes, uncomplicated; D69.6 Thrombocytopenia, unspecified; D64.9 Anemia, unspecified; E72.20 Disorder of urea cycle metabolism, unspecified; E80.6 Other disorders of bilirubin metabolism; G62.9 Polyneuropathy, unspecified; I11.0 Hypertensive heart disease with heart failure; I50.9 Heart failure, unspecified; R56.9 Unspecified convulsions; B18.2 Chronic viral hepatitis C; R60.0 Localized edema; R76.11 Nonspecific reaction to tuberculin skin test without active tuberculosis; R74.01 Elevation of levels of liver transaminase levels; Z99.89 Dependence on other enabling machines and devices
CPT/HCPCS: 36415; 71046-TC-FY; 80053; 82140; 85027; 85610; 86780; 93005; 93010; C9803; Q0162; U0003

== ENCOUNTER 2020-11-14 17:26 | Inpatient (IN) | payer OTHER ==
[2020-11-14] MEDS ORDERED: MAGNESIUM HYDROX 2400MG/30ML ORAL SUSPENSION 30 ML CUP PO PRN (17:49)
[2020-11-14] MEDS ORDERED: guaiFENesin 200 MG/10 ML 10 ML UNIT-DOSE CUPS PO PRN (17:49)
[2020-11-14] MEDS ORDERED: NICOTINE POLACRILEX 2 MG GUM BUC PRN (17:49)
[2020-11-14] MEDS ORDERED: ACETAMINOPHEN 325 MG TABLET (FP) PO PRN (17:49)
[2020-11-14] MEDS ORDERED: IBUPROFEN 400 MG TABLET (FP) PO PRN (17:49)
[2020-11-14] MEDS ORDERED: LOPERAMIDE HCL 2 MG CAPSULE PO PRN (17:49)
[2020-11-14] MEDS ORDERED: MENTHOL/PHENOL 1 EACH UD MM PRN (17:49)
[2020-11-14] MEDS ORDERED: MAGNESIUM CITRATE 300 ML BOTTLE PO PRN (17:49)
[2020-11-14] MEDS ORDERED: P-EPHED 60MG/TRIPROLIDI 2.5MG TABLET PO PRN (17:49)
[2020-11-14] MEDS: THIAMINE HCL 100 MG TABLET (FP) PO SCH (21:06)
[2020-11-14] MEDS: MELATONIN 5 MG TABLETS PO SCH (21:06)
[2020-11-14] MEDS: LACTULOSE 20 GM/30 ML UDC (FOR ORAL USE ONLY) PO SCH (21:07)
[2020-11-14] MEDS: GABAPENTIN 300 MG CAPSULE PO SCH (21:07)
[2020-11-14] MEDS: MAG HYDROX/AL HYDROX/SIMETH 30 ML UNIT-DOSE CUP PO PRN (21:41)
[2020-11-15] MEDS ORDERED: METHADONE HCL 40 MG DISPERSABLE TABLET ONE (05:48)
[2020-11-15] MEDS ORDERED: METHADONE HCL 10 MG TABLET ONE (05:48)
[2020-11-15] MEDS ORDERED: METHADONE HCL 10 MG TABLET PO SCH (06:00)
[2020-11-15] MEDS: FUROSEMIDE 40 MG TABLET (FP) PO SCH ×2 (06:18→13:13)
[2020-11-15] MEDS: METHADONE 40 MG, METHADONE 30 MG PO SCH (06:18)
[2020-11-15] MEDS ORDERED: AMMONIUM LACTATE 12% LOTION 225 GM BOTTLE TP PRN (08:24)
[2020-11-15] MEDS ORDERED: PT OWN MED DRAWER 7, Y5N ONE (08:45)
[2020-11-15] MEDS: GABAPENTIN 300 MG CAPSULE PO SCH ×2 (09:36→21:33)
[2020-11-15] MEDS: NADOLOL 20 MG TABLET (FP) PO SCH (09:36)
[2020-11-15] MEDS: PRENATAL VITAMINS W/ FOLIC ACID TABLET (FP) PO SCH (09:36)
[2020-11-15] MEDS: LACTULOSE 20 GM/30 ML UDC (FOR ORAL USE ONLY) PO SCH ×2 (09:36→21:32)
[2020-11-15] MEDS: SPIRONOLACTONE 25 MG TABLET PO SCH (09:36)
[2020-11-15] MEDS ORDERED: PNEUMOC 13-VAL CONJ-DIP CRM/PF 0.5 ML DISP.SYRIN IM ONE (12:00)
[2020-11-15] MEDS ORDERED: PNEUMOCOCCAL 23 VACCINE 0.5 ML VIAL IM ONE (12:00)
[2020-11-15] MEDS: FAMOTIDINE 20 MG TABLET PO SCH (13:13)
[2020-11-15] MEDS: MELATONIN 5 MG TABLETS PO SCH (21:32)
[2020-11-15] MEDS: THIAMINE HCL 100 MG TABLET (FP) PO SCH (21:32)
[2020-11-16] MEDS ORDERED: METHADONE HCL 40 MG DISPERSABLE TABLET ONE (03:16)
[2020-11-16] MEDS ORDERED: METHADONE HCL 10 MG TABLET ONE (03:16)
[2020-11-16] MEDS: FUROSEMIDE 40 MG TABLET (FP) PO SCH ×2 (06:28→15:17)
[2020-11-16] MEDS: METHADONE 40 MG, METHADONE 30 MG PO SCH (06:28)
[2020-11-16] MEDS: PRENATAL VITAMINS W/ FOLIC ACID TABLET (FP) PO SCH (09:38)
[2020-11-16] MEDS: SPIRONOLACTONE 25 MG TABLET PO SCH (09:38)
[2020-11-16] MEDS: FAMOTIDINE 20 MG TABLET PO SCH (09:39)
[2020-11-16] MEDS: LACTULOSE 20 GM/30 ML UDC (FOR ORAL USE ONLY) PO SCH ×2 (09:39→21:17)
[2020-11-16] MEDS: NADOLOL 20 MG TABLET (FP) PO SCH (09:39)
[2020-11-16] MEDS: GABAPENTIN 300 MG CAPSULE PO SCH ×2 (09:39→21:16)
[2020-11-16] MEDS: THIAMINE HCL 100 MG TABLET (FP) PO SCH (21:17)
[2020-11-16] MEDS: MELATONIN 5 MG TABLETS PO SCH (21:17)
[2020-11-17] MEDS ORDERED: METHADONE HCL 40 MG DISPERSABLE TABLET ONE (03:17)
[2020-11-17] MEDS ORDERED: METHADONE HCL 10 MG TABLET ONE (03:17)
[2020-11-17] MEDS ORDERED: PT OWN MED DRAWER 7, Y5N ONE ×2 (03:18→08:52)
[2020-11-17] MEDS: FUROSEMIDE 40 MG TABLET (FP) PO SCH ×2 (06:19→14:50)
[2020-11-17] MEDS: METHADONE 40 MG, METHADONE 30 MG PO SCH (06:20)
[2020-11-17] MEDS: FAMOTIDINE 20 MG TABLET PO SCH (10:01)
[2020-11-17] MEDS: SPIRONOLACTONE 25 MG TABLET PO SCH (10:01)
[2020-11-17] MEDS: PRENATAL VITAMINS W/ FOLIC ACID TABLET (FP) PO SCH (10:01)
[2020-11-17] MEDS: LACTULOSE 20 GM/30 ML UDC (FOR ORAL USE ONLY) PO SCH ×2 (10:01→21:32)
[2020-11-17] MEDS: GABAPENTIN 300 MG CAPSULE PO SCH ×2 (10:01→21:31)
[2020-11-17] MEDS: NADOLOL 20 MG TABLET (FP) PO SCH (10:01)
[2020-11-17] MEDS: MAG HYDROX/AL HYDROX/SIMETH 30 ML UNIT-DOSE CUP PO PRN (19:37)
[2020-11-17] MEDS: MELATONIN 5 MG TABLETS PO SCH (21:31)
[2020-11-17] MEDS: THIAMINE HCL 100 MG TABLET (FP) PO SCH (21:31)
[2020-11-18] MEDS ORDERED: METHADONE HCL 40 MG DISPERSABLE TABLET ONE (04:09)
[2020-11-18] MEDS ORDERED: METHADONE HCL 10 MG TABLET ONE (04:10)
[2020-11-18] MEDS: METHADONE 40 MG, METHADONE 30 MG PO SCH (07:03)
[2020-11-18] MEDS: FUROSEMIDE 40 MG TABLET (FP) PO SCH ×2 (07:03→14:38)
[2020-11-18] MEDS: SPIRONOLACTONE 25 MG TABLET PO SCH (10:07)
[2020-11-18] MEDS: FAMOTIDINE 20 MG TABLET PO SCH (10:08)
[2020-11-18] MEDS: GABAPENTIN 300 MG CAPSULE PO SCH ×2 (10:08→21:18)
[2020-11-18] MEDS: PRENATAL VITAMINS W/ FOLIC ACID TABLET (FP) PO SCH (10:09)
[2020-11-18] MEDS: NADOLOL 20 MG TABLET (FP) PO SCH (10:09)
[2020-11-18] MEDS: LACTULOSE 20 GM/30 ML UDC (FOR ORAL USE ONLY) PO SCH ×2 (12:01→21:17)
[2020-11-18] MEDS: MELATONIN 5 MG TABLETS PO SCH (21:17)
[2020-11-18] MEDS: THIAMINE HCL 100 MG TABLET (FP) PO SCH (21:17)
[2020-11-19] MEDS ORDERED: METHADONE HCL 40 MG DISPERSABLE TABLET ONE (03:07)
[2020-11-19] MEDS ORDERED: METHADONE HCL 10 MG TABLET ONE (03:07)
[2020-11-19] MEDS: METHADONE 40 MG, METHADONE 30 MG PO SCH (06:06)
[2020-11-19] MEDS: FUROSEMIDE 40 MG TABLET (FP) PO SCH ×2 (07:34→15:06)
[2020-11-19] MEDS: LACTULOSE 20 GM/30 ML UDC (FOR ORAL USE ONLY) PO SCH ×2 (09:32→21:31)
[2020-11-19] MEDS: FAMOTIDINE 20 MG TABLET PO SCH (09:32)
[2020-11-19] MEDS: PRENATAL VITAMINS W/ FOLIC ACID TABLET (FP) PO SCH (09:32)
[2020-11-19] MEDS: GABAPENTIN 300 MG CAPSULE PO SCH ×2 (09:32→21:31)
[2020-11-19] MEDS: NADOLOL 20 MG TABLET (FP) PO SCH (09:33)
[2020-11-19] MEDS: SPIRONOLACTONE 25 MG TABLET PO SCH (09:33)
[2020-11-19] MEDS: MELATONIN 5 MG TABLETS PO SCH (21:31)
[2020-11-19] MEDS: THIAMINE HCL 100 MG TABLET (FP) PO SCH (21:31)
[2020-11-20] MEDS ORDERED: METHADONE HCL 40 MG DISPERSABLE TABLET ONE (03:28)
[2020-11-20] MEDS ORDERED: METHADONE HCL 10 MG TABLET ONE (03:28)
[2020-11-20] MEDS: FUROSEMIDE 40 MG TABLET (FP) PO SCH ×2 (06:18→13:38)
[2020-11-20] MEDS: METHADONE 40 MG, METHADONE 30 MG PO SCH (06:18)
[2020-11-20] MEDS: GABAPENTIN 300 MG CAPSULE PO SCH ×2 (09:45→21:57)
[2020-11-20] MEDS: PRENATAL VITAMINS W/ FOLIC ACID TABLET (FP) PO SCH (09:45)
[2020-11-20] MEDS: LACTULOSE 20 GM/30 ML UDC (FOR ORAL USE ONLY) PO SCH ×2 (09:45→21:56)
[2020-11-20] MEDS: NADOLOL 20 MG TABLET (FP) PO SCH (09:45)
[2020-11-20] MEDS: FAMOTIDINE 20 MG TABLET PO SCH (09:45)
[2020-11-20] MEDS: SPIRONOLACTONE 25 MG TABLET PO SCH (09:45)
[2020-11-20] MEDS: THIAMINE HCL 100 MG TABLET (FP) PO SCH (21:57)
[2020-11-20] MEDS: MELATONIN 5 MG TABLETS PO SCH (21:57)
[2020-11-21] MEDS ORDERED: METHADONE HCL 40 MG DISPERSABLE TABLET ONE (03:46)
[2020-11-21] MEDS ORDERED: METHADONE HCL 10 MG TABLET ONE (03:46)
[2020-11-21] MEDS: METHADONE 40 MG, METHADONE 30 MG PO SCH (06:04)
[2020-11-21] MEDS: FUROSEMIDE 40 MG TABLET (FP) PO SCH ×2 (06:04→14:55)
[2020-11-21] MEDS: PRENATAL VITAMINS W/ FOLIC ACID TABLET (FP) PO SCH (09:49)
[2020-11-21] MEDS: LACTULOSE 20 GM/30 ML UDC (FOR ORAL USE ONLY) PO SCH ×2 (09:50→21:41)
[2020-11-21] MEDS: FAMOTIDINE 20 MG TABLET PO SCH (09:50)
[2020-11-21] MEDS: NADOLOL 20 MG TABLET (FP) PO SCH (09:50)
[2020-11-21] MEDS: GABAPENTIN 300 MG CAPSULE PO SCH ×2 (09:50→21:41)
[2020-11-21] MEDS: SPIRONOLACTONE 25 MG TABLET PO SCH (09:51)
[2020-11-21] MEDS: MELATONIN 5 MG TABLETS PO SCH (21:41)
[2020-11-21] MEDS: THIAMINE HCL 100 MG TABLET (FP) PO SCH (21:41)
[2020-11-22] MEDS ORDERED: METHADONE HCL 40 MG DISPERSABLE TABLET ONE (03:23)
[2020-11-22] MEDS ORDERED: METHADONE HCL 10 MG TABLET ONE (03:23)
[2020-11-22] MEDS: METHADONE 40 MG, METHADONE 30 MG PO SCH (06:49)
[2020-11-22] MEDS: FUROSEMIDE 40 MG TABLET (FP) PO SCH ×2 (06:51→14:58)
[2020-11-22] MEDS: LACTULOSE 20 GM/30 ML UDC (FOR ORAL USE ONLY) PO SCH ×2 (09:51→21:30)
[2020-11-22] MEDS: GABAPENTIN 300 MG CAPSULE PO SCH ×2 (09:51→21:30)
[2020-11-22] MEDS: PRENATAL VITAMINS W/ FOLIC ACID TABLET (FP) PO SCH (09:51)
[2020-11-22] MEDS: NADOLOL 20 MG TABLET (FP) PO SCH (09:51)
[2020-11-22] MEDS: SPIRONOLACTONE 25 MG TABLET PO SCH (09:52)
[2020-11-22] MEDS: FAMOTIDINE 20 MG TABLET PO SCH (09:55)
[2020-11-22] MEDS: MELATONIN 5 MG TABLETS PO SCH (21:30)
[2020-11-22] MEDS: THIAMINE HCL 100 MG TABLET (FP) PO SCH (21:30)
[2020-11-23] MEDS ORDERED: METHADONE HCL 40 MG DISPERSABLE TABLET ONE (03:07)
[2020-11-23] MEDS ORDERED: METHADONE HCL 10 MG TABLET ONE (03:08)
[2020-11-23] MEDS: METHADONE 40 MG, METHADONE 30 MG PO SCH (06:41)
[2020-11-23] MEDS: FUROSEMIDE 40 MG TABLET (FP) PO SCH ×3 (06:41→13:51)
[2020-11-23] MEDS: LACTULOSE 20 GM/30 ML UDC (FOR ORAL USE ONLY) PO SCH ×3 (09:37→21:22)
[2020-11-23] MEDS: PRENATAL VITAMINS W/ FOLIC ACID TABLET (FP) PO SCH (09:37)
[2020-11-23] MEDS: SPIRONOLACTONE 25 MG TABLET PO SCH (09:38)
[2020-11-23] MEDS: NADOLOL 20 MG TABLET (FP) PO SCH (09:38)
[2020-11-23] MEDS: FAMOTIDINE 20 MG TABLET PO SCH (09:39)
[2020-11-23] MEDS: GABAPENTIN 300 MG CAPSULE PO SCH ×2 (09:39→21:23)
[2020-11-23] MEDS: THIAMINE HCL 100 MG TABLET (FP) PO SCH (21:22)
[2020-11-23] MEDS: MELATONIN 5 MG TABLETS PO SCH (21:23)
[2020-11-24] MEDS ORDERED: METHADONE HCL 40 MG DISPERSABLE TABLET ONE (03:11)
[2020-11-24] MEDS ORDERED: METHADONE HCL 10 MG TABLET ONE (03:11)
[2020-11-24] MEDS: LACTULOSE 20 GM/30 ML UDC (FOR ORAL USE ONLY) PO SCH ×3 (06:10→21:08)
[2020-11-24] MEDS: METHADONE 40 MG, METHADONE 30 MG PO SCH (06:10)
[2020-11-24] MEDS: FUROSEMIDE 40 MG TABLET (FP) PO SCH ×2 (06:11→14:46)
[2020-11-24] MEDS: PRENATAL VITAMINS W/ FOLIC ACID TABLET (FP) PO SCH (09:50)
[2020-11-24] MEDS: NADOLOL 20 MG TABLET (FP) PO SCH (09:50)
[2020-11-24] MEDS: GABAPENTIN 300 MG CAPSULE PO SCH ×2 (09:50→21:08)
[2020-11-24] MEDS: SPIRONOLACTONE 25 MG TABLET PO SCH ×2 (09:51→18:40)
[2020-11-24] MEDS: FAMOTIDINE 20 MG TABLET PO SCH (09:51)
[2020-11-24] MEDS: LIDOCAINE 5% TOPICAL PATCH TP SCH (17:28)
[2020-11-24] MEDS: MELATONIN 5 MG TABLETS PO SCH (21:08)
[2020-11-24] MEDS: THIAMINE HCL 100 MG TABLET (FP) PO SCH (21:08)
[2020-11-24] MEDS: METHYL SALICYLATE/MENTHOL OINT 30 GM TUBE TP SCH (21:09)
[2020-11-24] MEDS: LIDOCAINE PATCH REMOVAL MC SCH (21:09)
[2020-11-25] MEDS ORDERED: METHADONE HCL 40 MG DISPERSABLE TABLET ONE (03:28)
[2020-11-25] MEDS ORDERED: METHADONE HCL 10 MG TABLET ONE (03:28)
[2020-11-25] MEDS: FUROSEMIDE 40 MG TABLET (FP) PO SCH ×2 (06:54→14:50)
[2020-11-25] MEDS: METHADONE 40 MG, METHADONE 30 MG PO SCH (06:54)
[2020-11-25] MEDS: LACTULOSE 20 GM/30 ML UDC (FOR ORAL USE ONLY) PO SCH ×3 (06:54→21:57)
[2020-11-25] MEDS: PRENATAL VITAMINS W/ FOLIC ACID TABLET (FP) PO SCH (10:19)
[2020-11-25] MEDS: GABAPENTIN 300 MG CAPSULE PO SCH ×2 (10:19→21:57)
[2020-11-25] MEDS: SPIRONOLACTONE 25 MG TABLET PO SCH ×2 (10:20→18:18)
[2020-11-25] MEDS: FAMOTIDINE 20 MG TABLET PO SCH (10:20)
[2020-11-25] MEDS: NADOLOL 20 MG TABLET (FP) PO SCH (10:20)
[2020-11-25] MEDS: METHYL SALICYLATE/MENTHOL OINT 30 GM TUBE TP SCH (10:21)
[2020-11-25] MEDS: LIDOCAINE 5% TOPICAL PATCH TP SCH (10:21)
[2020-11-25] MEDS: THIAMINE HCL 100 MG TABLET (FP) PO SCH (21:57)
[2020-11-25] MEDS: MELATONIN 5 MG TABLETS PO SCH (21:57)
[2020-11-25] MEDS: LIDOCAINE PATCH REMOVAL MC SCH (22:21)
[2020-11-26] MEDS ORDERED: METHADONE HCL 40 MG DISPERSABLE TABLET ONE (04:10)
[2020-11-26] MEDS ORDERED: METHADONE HCL 10 MG TABLET ONE (04:11)
[2020-11-26] MEDS ORDERED: METHADONE HCL 5 MG TABLET PO SCH (06:00)
[2020-11-26] MEDS: METHADONE 40 MG, METHADONE 30 MG PO SCH (06:02)
[2020-11-26] MEDS: LACTULOSE 20 GM/30 ML UDC (FOR ORAL USE ONLY) PO SCH ×3 (06:03→21:16)
[2020-11-26] MEDS: FUROSEMIDE 40 MG TABLET (FP) PO SCH ×2 (06:03→13:00)
[2020-11-26] MEDS: PRENATAL VITAMINS W/ FOLIC ACID TABLET (FP) PO SCH (09:53)
[2020-11-26] MEDS: FAMOTIDINE 20 MG TABLET PO SCH (09:53)
[2020-11-26] MEDS: SPIRONOLACTONE 25 MG TABLET PO SCH ×2 (09:54→18:49)
[2020-11-26] MEDS: METHYL SALICYLATE/MENTHOL OINT 30 GM TUBE TP SCH (09:54)
[2020-11-26] MEDS: GABAPENTIN 300 MG CAPSULE PO SCH ×2 (09:54→21:15)
[2020-11-26] MEDS: LIDOCAINE 5% TOPICAL PATCH TP SCH (09:54)
[2020-11-26] MEDS: NADOLOL 20 MG TABLET (FP) PO SCH (09:54)
[2020-11-26] MEDS: THIAMINE HCL 100 MG TABLET (FP) PO SCH (21:16)
[2020-11-26] MEDS: MELATONIN 5 MG TABLETS PO SCH (21:16)
[2020-11-26] MEDS: LIDOCAINE PATCH REMOVAL MC SCH (21:16)
[2020-11-27] MEDS ORDERED: METHADONE HCL 40 MG DISPERSABLE TABLET ONE (03:33)
[2020-11-27] MEDS ORDERED: METHADONE HCL 10 MG TABLET ONE (03:33)
[2020-11-27] MEDS: METHADONE 40 MG, METHADONE 30 MG PO SCH (05:47)
[2020-11-27] MEDS: LACTULOSE 20 GM/30 ML UDC (FOR ORAL USE ONLY) PO SCH ×3 (05:47→21:46)
[2020-11-27] MEDS: FUROSEMIDE 40 MG TABLET (FP) PO SCH ×2 (06:15→13:36)
[2020-11-27 06:54] VITALS: TEMP 97.5
[2020-11-27] MEDS: SPIRONOLACTONE 25 MG TABLET PO SCH ×2 (09:58→19:10)
[2020-11-27] MEDS: GABAPENTIN 300 MG CAPSULE PO SCH ×2 (09:58→21:46)
[2020-11-27] MEDS: LIDOCAINE 5% TOPICAL PATCH TP SCH (09:58)
[2020-11-27] MEDS: PRENATAL VITAMINS W/ FOLIC ACID TABLET (FP) PO SCH (09:58)
[2020-11-27] MEDS: NADOLOL 20 MG TABLET (FP) PO SCH (09:58)
[2020-11-27] MEDS: METHYL SALICYLATE/MENTHOL OINT 30 GM TUBE TP SCH (09:59)
[2020-11-27] MEDS: FAMOTIDINE 20 MG TABLET PO SCH (09:59)
[2020-11-27] MEDS: THIAMINE HCL 100 MG TABLET (FP) PO SCH (21:47)
[2020-11-27] MEDS: MELATONIN 5 MG TABLETS PO SCH (21:47)
[2020-11-27] MEDS: LIDOCAINE PATCH REMOVAL MC SCH (21:47)
[2020-11-28] MEDS ORDERED: METHADONE HCL 10 MG TABLET ONE (03:03)
[2020-11-28] MEDS ORDERED: METHADONE HCL 40 MG DISPERSABLE TABLET ONE (03:03)
[2020-11-28] MEDS: LACTULOSE 20 GM/30 ML UDC (FOR ORAL USE ONLY) PO SCH (05:48)
[2020-11-28] MEDS: METHADONE 40 MG, METHADONE 30 MG PO SCH (05:48)
[2020-11-28] MEDS: FUROSEMIDE 40 MG TABLET (FP) PO SCH (06:07)
[2020-11-28 06:31] VITALS: BP 111/64; PULSE 56
[2020-11-28] MEDS: SPIRONOLACTONE 25 MG TABLET PO SCH (09:08)
[2020-11-28] MEDS: GABAPENTIN 300 MG CAPSULE PO SCH (09:08)
[2020-11-28] MEDS: NADOLOL 20 MG TABLET (FP) PO SCH (09:08)
[2020-11-28] MEDS: LIDOCAINE 5% TOPICAL PATCH TP SCH (09:08)
[2020-11-28] MEDS: METHYL SALICYLATE/MENTHOL OINT 30 GM TUBE TP SCH (09:08)
[2020-11-28] MEDS: PRENATAL VITAMINS W/ FOLIC ACID TABLET (FP) PO SCH (09:09)
[2020-11-28] MEDS: FAMOTIDINE 20 MG TABLET PO SCH (09:09)
== END 2020-11-28 10:05 | disposition home or self-care (01) | DRG 772 ==
LOC: YASAS 17:26 → Y3W 17:27
PROVIDERS: ADMIT Allergy & Immunology; ATTEND Allergy & Immunology
PROC: HZ42ZZZ Group Counseling for Substance Abuse Treatment, Cognitive-Behavioral (ICD-10-PCS; principal; 2020-11-14)
DX: F10.20 Alcohol dependence, uncomplicated (principal); I11.0 Hypertensive heart disease with heart failure; I50.9 Heart failure, unspecified; K74.60 Unspecified cirrhosis of liver; K21.9 Gastro-esophageal reflux disease without esophagitis; L85.3 Xerosis cutis; M54.89 Other dorsalgia; R79.89 Other specified abnormal findings of blood chemistry
CPT/HCPCS: 82140; 90732; C9803; G0009; U0003

== ENCOUNTER 2021-01-28 09:25 | Inpatient (IN) | payer OTHER ==
[2021-01-28 14:08] VITALS: BMI 34.9
[2021-01-28] MEDS ORDERED: MAG HYDROX/AL HYDROX/SIMETH 30 ML UNIT-DOSE CUP PO PRN (14:38)
[2021-01-28] MEDS ORDERED: hydrOXYzine PAMOATE 25 MG CAPSULE (FP) PO PRN (14:38)
[2021-01-28] MEDS ORDERED: MENTHOL/PHENOL 1 EACH UD MM PRN (14:38)
[2021-01-28] MEDS ORDERED: ACETAMINOPHEN 325 MG TABLET (FP) PO PRN ×2 (14:38)
[2021-01-28] MEDS ORDERED: MAGNESIUM CITRATE 300 ML BOTTLE PO PRN (14:38)
[2021-01-28] MEDS ORDERED: ONDANSETRON *ODT* 4 MG TABLET SL PRN (14:38)
[2021-01-28] MEDS ORDERED: METHOCARBAMOL 500 MG TABLET PO PRN (14:38)
[2021-01-28] MEDS ORDERED: BISMUTH SUBSALICYLATE 524 MG/30 ML UD PO PRN (14:38)
[2021-01-28] MEDS ORDERED: chlordiazePOXIDE HCL 25 MG CAPSULE PO PRN (14:38)
[2021-01-28] MEDS ORDERED: IBUPROFEN 400 MG TABLET (FP) PO PRN (14:38)
[2021-01-28] MEDS ORDERED: MAGNESIUM HYDROX 2400MG/30ML ORAL SUSPENSION 30 ML CUP PO PRN (14:38)
[2021-01-28] MEDS ORDERED: AMMONIUM LACTATE 12% LOTION 225 GM BOTTLE TP PRN (14:40)
[2021-01-28] MEDS ORDERED: METHADONE HCL 10 MG TABLET PO SCH (16:15)
[2021-01-28] MEDS ORDERED: chlordiazePOXIDE HCL 25 MG CAPSULE ONE (17:06)
[2021-01-28] MEDS: chlordiazePOXIDE HCL 25 MG CAPSULE PO SCH ×2 (17:10→22:08)
[2021-01-28] MEDS ORDERED: METHADONE HCL 10 MG TABLET ONE (22:00)
[2021-01-28] MEDS ORDERED: METHADONE HCL 40 MG DISPERSABLE TABLET ONE (22:01)
[2021-01-28] MEDS: GABAPENTIN 300 MG CAPSULE PO SCH (22:07)
[2021-01-28] MEDS: METHADONE 40 MG, METHADONE 30 MG PO SCH (22:07)
[2021-01-28] MEDS: MELATONIN 5 MG TABLETS PO SCH (22:08)
[2021-01-28] MEDS: THIAMINE HCL 100 MG TABLET (FP) PO SCH (22:08)
[2021-01-29] MEDS ORDERED: METHADONE HCL 10 MG TABLET ONE (03:48)
[2021-01-29] MEDS ORDERED: METHADONE HCL 40 MG DISPERSABLE TABLET ONE (03:49)
[2021-01-29] MEDS: METHADONE 40 MG, METHADONE 30 MG PO SCH (05:31)
[2021-01-29] MEDS: chlordiazePOXIDE HCL 25 MG CAPSULE PO SCH ×4 (05:31→22:21)
[2021-01-29] MEDS: GABAPENTIN 300 MG CAPSULE PO SCH ×2 (10:17→22:22)
[2021-01-29] MEDS: PRENATAL VITAMINS W/ FOLIC ACID TABLET (FP) PO SCH (10:17)
[2021-01-29] MEDS: PANTOPRAZOLE 40 MG TABLET PO SCH (10:17)
[2021-01-29] MEDS: TAMSULOSIN HCL 0.4 MG CAP PO SCH (10:17)
[2021-01-29] MEDS: NADOLOL 20 MG TABLET (FP) PO SCH (11:40)
[2021-01-29 12:35] LABS: HEMATOCRIT 35.2 % (35.4-49); HEMOGLOBIN 11.6 GM/dL (11.7-16.9); MCH 31.7 pg (25.7-33.7); MCHC 32.9 g/dl (32.0-35.9); MEAN CELL VOLUME 96.4 fl (80-96); MEAN PLT VOLUME 10.1 fl (7.5-11.1); PLATELET COUNT 70 K/MM3 (134-434); RBC 3.65 M/mm3 (4.00-5.60); RDW 21.1 % (11.9-15.9); WHITE BLOOD COUNT 7.4 K/mm3 (4.0-10.0)
[2021-01-29 12:38] LABS: CALCIUM 8.3 mg/dL (8.5-10.1)
[2021-01-29 12:39] LABS: ALBUMIN 3.2 g/dl (3.4-5.0); BLOOD UREA NITROGEN 6.6 mg/dL (7-18)
[2021-01-29 12:42] LABS: CREATININE 0.9 mg/dL (0.55-1.3)
[2021-01-29 12:43] LABS: BILIRUBIN,TOTAL 2.2 mg/dL (0.2-1); TOT PROT 8.5 g/dl (6.4-8.2)
[2021-01-29] MEDS: MELATONIN 5 MG TABLETS PO SCH (22:21)
[2021-01-29] MEDS: THIAMINE HCL 100 MG TABLET (FP) PO SCH (22:22)
[2021-01-30] MEDS ORDERED: METHADONE HCL 10 MG TABLET ONE (04:25)
[2021-01-30] MEDS ORDERED: METHADONE HCL 40 MG DISPERSABLE TABLET ONE (04:25)
[2021-01-30] MEDS: METHADONE 40 MG, METHADONE 30 MG PO SCH (05:17)
[2021-01-30] MEDS: chlordiazePOXIDE HCL 25 MG CAPSULE PO SCH ×4 (05:17→22:02)
[2021-01-30] MEDS: PRENATAL VITAMINS W/ FOLIC ACID TABLET (FP) PO SCH (10:24)
[2021-01-30] MEDS: GABAPENTIN 300 MG CAPSULE PO SCH ×2 (10:25→22:02)
[2021-01-30] MEDS: TAMSULOSIN HCL 0.4 MG CAP PO SCH (10:25)
[2021-01-30] MEDS: PANTOPRAZOLE 40 MG TABLET PO SCH (10:25)
[2021-01-30] MEDS: NADOLOL 20 MG TABLET (FP) PO SCH (10:27)
[2021-01-30] MEDS ORDERED: POTASSIUM CHLORIDE ORAL LIQUID 20 MEQ/15 ML PO ONE (14:00)
[2021-01-30] MEDS: THIAMINE HCL 100 MG TABLET (FP) PO SCH (22:02)
[2021-01-30] MEDS: MELATONIN 5 MG TABLETS PO SCH (22:02)
[2021-01-30] MEDS: POTASSIUM CHLORIDE ORAL LIQUID 20 MEQ/15 ML PO SCH (22:02)
[2021-01-31] MEDS ORDERED: chlordiazePOXIDE HCL 10 MG CAPSULE PO PRN
[2021-01-31] MEDS ORDERED: METHADONE HCL 10 MG TABLET ONE (04:39)
[2021-01-31] MEDS ORDERED: METHADONE HCL 40 MG DISPERSABLE TABLET ONE (04:40)
[2021-01-31] MEDS: chlordiazePOXIDE HCL 10 MG CAPSULE PO SCH ×4 (05:26→22:23)
[2021-01-31] MEDS: METHADONE 40 MG, METHADONE 30 MG PO SCH (05:26)
[2021-01-31 06:07] LABS: SARS-CoV-2 NAA Not Detected (Not Detected)
[2021-01-31 09:53] LABS: CALCIUM 8.5 mg/dL (8.5-10.1)
[2021-01-31 09:54] LABS: ALBUMIN 2.9 g/dl (3.4-5.0); BLOOD UREA NITROGEN 11.6 mg/dL (7-18)
[2021-01-31 09:57] LABS: INR 1.56 (0.83-1.09)
[2021-01-31 09:59] LABS: BILIRUBIN,TOTAL 1.3 mg/dL (0.2-1); TOT PROT 7.4 g/dl (6.4-8.2)
[2021-01-31] MEDS: POTASSIUM CHLORIDE ORAL LIQUID 20 MEQ/15 ML PO SCH (10:19)
[2021-01-31] MEDS: NADOLOL 20 MG TABLET (FP) PO SCH (10:19)
[2021-01-31] MEDS: PANTOPRAZOLE 40 MG TABLET PO SCH (10:19)
[2021-01-31] MEDS: TAMSULOSIN HCL 0.4 MG CAP PO SCH (10:19)
[2021-01-31] MEDS: GABAPENTIN 300 MG CAPSULE PO SCH ×2 (10:19→22:23)
[2021-01-31] MEDS: PRENATAL VITAMINS W/ FOLIC ACID TABLET (FP) PO SCH (10:19)
[2021-01-31] MEDS: MELATONIN 5 MG TABLETS PO SCH (22:23)
[2021-01-31] MEDS: THIAMINE HCL 100 MG TABLET (FP) PO SCH (22:23)
[2021-02-01] MEDS ORDERED: METHADONE HCL 10 MG TABLET ONE (04:11)
[2021-02-01] MEDS ORDERED: METHADONE HCL 40 MG DISPERSABLE TABLET ONE (04:11)
[2021-02-01] MEDS: METHADONE 40 MG, METHADONE 30 MG PO SCH (05:35)
[2021-02-01] MEDS: chlordiazePOXIDE HCL 10 MG CAPSULE PO SCH ×2 (05:35→18:01)
[2021-02-01] MEDS: GABAPENTIN 300 MG CAPSULE PO SCH ×2 (10:21→22:20)
[2021-02-01] MEDS: TAMSULOSIN HCL 0.4 MG CAP PO SCH (10:21)
[2021-02-01] MEDS: PRENATAL VITAMINS W/ FOLIC ACID TABLET (FP) PO SCH (10:21)
[2021-02-01] MEDS: PANTOPRAZOLE 40 MG TABLET PO SCH (10:21)
[2021-02-01] MEDS: NADOLOL 20 MG TABLET (FP) PO SCH (10:21)
[2021-02-01] MEDS: MELATONIN 5 MG TABLETS PO SCH (22:20)
[2021-02-01] MEDS: THIAMINE HCL 100 MG TABLET (FP) PO SCH (22:20)
[2021-02-02] MEDS ORDERED: METHADONE HCL 10 MG TABLET ONE (04:36)
[2021-02-02] MEDS ORDERED: METHADONE HCL 40 MG DISPERSABLE TABLET ONE (04:37)
[2021-02-02] MEDS ORDERED: chlordiazePOXIDE HCL 10 MG CAPSULE PO ONE (05:00)
[2021-02-02] MEDS: METHADONE 40 MG, METHADONE 30 MG PO SCH (05:41)
[2021-02-02 09:35] VITALS: BP 110/73; PULSE 79; TEMP 97.3
[2021-02-02] MEDS: TAMSULOSIN HCL 0.4 MG CAP PO SCH (10:12)
[2021-02-02] MEDS: PANTOPRAZOLE 40 MG TABLET PO SCH (10:12)
[2021-02-02] MEDS: PRENATAL VITAMINS W/ FOLIC ACID TABLET (FP) PO SCH (10:12)
[2021-02-02] MEDS: NADOLOL 20 MG TABLET (FP) PO SCH (10:12)
[2021-02-02] MEDS: GABAPENTIN 300 MG CAPSULE PO SCH (10:12)
== END 2021-02-02 10:55 | disposition other institution (70) | DRG 773 ==
LOC: YASAS 09:25 → Y3N 21:25
PROVIDERS: ADMIT Allergy & Immunology; ATTEND Allergy & Immunology
PROC: HZ2ZZZZ Detoxification Services for Substance Abuse Treatment (ICD-10-PCS; principal; 2021-01-28)
DX: F10.230 Alcohol dependence with withdrawal, uncomplicated (principal); F11.20 Opioid dependence, uncomplicated; D69.6 Thrombocytopenia, unspecified; E87.6 Hypokalemia; G62.9 Polyneuropathy, unspecified; I11.0 Hypertensive heart disease with heart failure; I50.9 Heart failure, unspecified; J45.909 Unspecified asthma, uncomplicated; N40.0 Benign prostatic hyperplasia without lower urinary tract symptoms; B18.2 Chronic viral hepatitis C; R76.11 Nonspecific reaction to tuberculin skin test without active tuberculosis; K00.0 Anodontia; Z99.89 Dependence on other enabling machines and devices; Z87.891 Personal history of nicotine dependence
CPT/HCPCS: 36415; 80053; 85027; 85610; 86780; C9803; U0003; U0005

== ENCOUNTER 2021-02-02 10:54 | Inpatient (IN) | payer OTHER ==
[2021-02-02] MEDS ORDERED: MAGNESIUM CITRATE 300 ML BOTTLE PO PRN (13:35)
[2021-02-02] MEDS ORDERED: LOPERAMIDE HCL 2 MG CAPSULE PO PRN (13:35)
[2021-02-02] MEDS ORDERED: ACETAMINOPHEN 325 MG TABLET (FP) PO PRN (13:35)
[2021-02-02] MEDS ORDERED: P-EPHED 60MG/TRIPROLIDI 2.5MG TABLET PO PRN (13:35)
[2021-02-02] MEDS ORDERED: MAGNESIUM HYDROX 2400MG/30ML ORAL SUSPENSION 30 ML CUP PO PRN (13:35)
[2021-02-02] MEDS ORDERED: MAG HYDROX/AL HYDROX/SIMETH 30 ML UNIT-DOSE CUP PO PRN (13:35)
[2021-02-02] MEDS ORDERED: IBUPROFEN 400 MG TABLET (FP) PO PRN (13:35)
[2021-02-02] MEDS ORDERED: MENTHOL/PHENOL 1 EACH UD MM PRN (13:35)
[2021-02-02] MEDS ORDERED: NICOTINE POLACRILEX 2 MG GUM BUC PRN (13:35)
[2021-02-02] MEDS ORDERED: guaiFENesin 200 MG/10 ML 10 ML UNIT-DOSE CUPS PO PRN (13:35)
[2021-02-02] MEDS ORDERED: AMMONIUM LACTATE 12% LOTION 225 GM BOTTLE TP PRN (13:36)
[2021-02-02] MEDS: THIAMINE HCL 100 MG TABLET (FP) PO SCH (21:50)
[2021-02-02] MEDS: GABAPENTIN 300 MG CAPSULE PO SCH (21:50)
[2021-02-02] MEDS: MELATONIN 5 MG TABLETS PO SCH (21:50)
[2021-02-03] MEDS ORDERED: METHADONE HCL 40 MG DISPERSABLE TABLET PO SCH (06:00)
[2021-02-03] MEDS: METHADONE 40 MG, METHADONE 30 MG PO SCH (06:39)
[2021-02-03] MEDS ORDERED: METHADONE HCL 40 MG DISPERSABLE TABLET ONE (06:39)
[2021-02-03] MEDS ORDERED: METHADONE HCL 10 MG TABLET ONE (06:39)
[2021-02-03] MEDS: PANTOPRAZOLE 40 MG TABLET PO SCH (11:01)
[2021-02-03] MEDS: TAMSULOSIN HCL 0.4 MG CAP PO SCH (11:01)
[2021-02-03] MEDS: NICOTINE 7 MG/24 HOURS TOPICAL PATCH TD SCH (11:02)
[2021-02-03] MEDS: PRENATAL VITAMINS W/ FOLIC ACID TABLET (FP) PO SCH (11:02)
[2021-02-03] MEDS: GABAPENTIN 300 MG CAPSULE PO SCH ×2 (11:02→21:30)
[2021-02-03] MEDS: NADOLOL 20 MG TABLET (FP) PO SCH (11:03)
[2021-02-03] MEDS: THIAMINE HCL 100 MG TABLET (FP) PO SCH (21:30)
[2021-02-03] MEDS: hydrOXYzine PAMOATE 25 MG CAPSULE (FP) PO PRN (21:30)
[2021-02-03] MEDS: MELATONIN 5 MG TABLETS PO SCH (21:30)
[2021-02-04] MEDS ORDERED: METHADONE HCL 40 MG DISPERSABLE TABLET ONE (03:37)
[2021-02-04] MEDS ORDERED: METHADONE HCL 10 MG TABLET ONE (03:37)
[2021-02-04] MEDS: METHADONE 40 MG, METHADONE 30 MG PO SCH (06:34)
[2021-02-04] MEDS: TAMSULOSIN HCL 0.4 MG CAP PO SCH (10:03)
[2021-02-04] MEDS: hydrOXYzine PAMOATE 25 MG CAPSULE (FP) PO PRN (10:03)
[2021-02-04] MEDS: GABAPENTIN 300 MG CAPSULE PO SCH ×2 (10:03→21:47)
[2021-02-04] MEDS: NADOLOL 20 MG TABLET (FP) PO SCH (10:04)
[2021-02-04] MEDS: NICOTINE 7 MG/24 HOURS TOPICAL PATCH TD SCH (10:04)
[2021-02-04] MEDS: PRENATAL VITAMINS W/ FOLIC ACID TABLET (FP) PO SCH (10:04)
[2021-02-04] MEDS: PANTOPRAZOLE 40 MG TABLET PO SCH (10:04)
[2021-02-04] MEDS: MELATONIN 5 MG TABLETS PO SCH (21:47)
[2021-02-04] MEDS: THIAMINE HCL 100 MG TABLET (FP) PO SCH (21:47)
[2021-02-05] MEDS ORDERED: METHADONE HCL 10 MG TABLET ONE (06:50)
[2021-02-05] MEDS: METHADONE 40 MG, METHADONE 30 MG PO SCH (06:51)
[2021-02-05] MEDS ORDERED: METHADONE HCL 40 MG DISPERSABLE TABLET ONE (06:51)
[2021-02-05] MEDS ORDERED: PT OWN MED DRAWER 7, Y5N ONE (08:54)
[2021-02-05] MEDS: PRENATAL VITAMINS W/ FOLIC ACID TABLET (FP) PO SCH (09:56)
[2021-02-05] MEDS: NICOTINE 7 MG/24 HOURS TOPICAL PATCH TD SCH (09:56)
[2021-02-05] MEDS: TAMSULOSIN HCL 0.4 MG CAP PO SCH (09:56)
[2021-02-05] MEDS: GABAPENTIN 300 MG CAPSULE PO SCH ×2 (09:56→21:05)
[2021-02-05] MEDS: PANTOPRAZOLE 40 MG TABLET PO SCH (09:56)
[2021-02-05] MEDS: NADOLOL 20 MG TABLET (FP) PO SCH (14:38)
[2021-02-05] MEDS: THIAMINE HCL 100 MG TABLET (FP) PO SCH (21:05)
[2021-02-05] MEDS: MELATONIN 5 MG TABLETS PO SCH (21:05)
[2021-02-06] MEDS ORDERED: METHADONE HCL 10 MG TABLET ONE (03:10)
[2021-02-06] MEDS ORDERED: METHADONE HCL 40 MG DISPERSABLE TABLET ONE (03:10)
[2021-02-06] MEDS: METHADONE 40 MG, METHADONE 30 MG PO SCH (06:54)
[2021-02-06] MEDS: PRENATAL VITAMINS W/ FOLIC ACID TABLET (FP) PO SCH (10:05)
[2021-02-06] MEDS: TAMSULOSIN HCL 0.4 MG CAP PO SCH (10:05)
[2021-02-06] MEDS: NADOLOL 20 MG TABLET (FP) PO SCH (10:05)
[2021-02-06] MEDS: PANTOPRAZOLE 40 MG TABLET PO SCH (10:05)
[2021-02-06] MEDS: GABAPENTIN 300 MG CAPSULE PO SCH ×2 (10:05→22:00)
[2021-02-06 10:06] LABS: SARS-CoV-2 NAA Not Detected (Not Detected)
[2021-02-06] MEDS: NICOTINE 7 MG/24 HOURS TOPICAL PATCH TD SCH (10:07)
[2021-02-06] MEDS: MELATONIN 5 MG TABLETS PO SCH (22:00)
[2021-02-06] MEDS: THIAMINE HCL 100 MG TABLET (FP) PO SCH (22:00)
[2021-02-07] MEDS ORDERED: METHADONE HCL 10 MG TABLET ONE (06:55)
[2021-02-07] MEDS ORDERED: METHADONE HCL 40 MG DISPERSABLE TABLET ONE (06:55)
[2021-02-07] MEDS: METHADONE 40 MG, METHADONE 30 MG PO SCH (07:03)
[2021-02-07] MEDS ORDERED: PT OWN MED DRAWER 7, Y5N ONE (08:22)
[2021-02-07] MEDS: PRENATAL VITAMINS W/ FOLIC ACID TABLET (FP) PO SCH (09:58)
[2021-02-07] MEDS: TAMSULOSIN HCL 0.4 MG CAP PO SCH (09:58)
[2021-02-07] MEDS: PANTOPRAZOLE 40 MG TABLET PO SCH (09:58)
[2021-02-07] MEDS: GABAPENTIN 300 MG CAPSULE PO SCH ×2 (09:58→21:13)
[2021-02-07] MEDS: NICOTINE 7 MG/24 HOURS TOPICAL PATCH TD SCH (09:59)
[2021-02-07] MEDS: NADOLOL 20 MG TABLET (FP) PO SCH (09:59)
[2021-02-07] MEDS: THIAMINE HCL 100 MG TABLET (FP) PO SCH (21:13)
[2021-02-07] MEDS: MELATONIN 5 MG TABLETS PO SCH (21:14)
[2021-02-08] MEDS ORDERED: METHADONE HCL 40 MG DISPERSABLE TABLET ONE (03:47)
[2021-02-08] MEDS ORDERED: METHADONE HCL 10 MG TABLET ONE (03:47)
[2021-02-08] MEDS: METHADONE 40 MG, METHADONE 30 MG PO SCH (07:01)
[2021-02-08] MEDS ORDERED: PT OWN MED DRAWER 7, Y5N ONE (08:04)
[2021-02-08] MEDS ORDERED: MASKS NR ONE (10:10)
[2021-02-08] MEDS: GABAPENTIN 300 MG CAPSULE PO SCH ×2 (10:11→21:51)
[2021-02-08] MEDS: TAMSULOSIN HCL 0.4 MG CAP PO SCH (10:11)
[2021-02-08] MEDS: NADOLOL 20 MG TABLET (FP) PO SCH (10:11)
[2021-02-08] MEDS: PRENATAL VITAMINS W/ FOLIC ACID TABLET (FP) PO SCH (10:11)
[2021-02-08] MEDS: PANTOPRAZOLE 40 MG TABLET PO SCH (10:11)
[2021-02-08] MEDS: NICOTINE 7 MG/24 HOURS TOPICAL PATCH TD SCH (10:12)
[2021-02-08] MEDS: THIAMINE HCL 100 MG TABLET (FP) PO SCH (21:51)
[2021-02-08] MEDS: MELATONIN 5 MG TABLETS PO SCH (21:51)
[2021-02-09] MEDS ORDERED: METHADONE HCL 40 MG DISPERSABLE TABLET ONE (03:31)
[2021-02-09] MEDS ORDERED: METHADONE HCL 10 MG TABLET ONE (03:31)
[2021-02-09] MEDS: METHADONE 40 MG, METHADONE 30 MG PO SCH (06:39)
[2021-02-09] MEDS ORDERED: PT OWN MED DRAWER 7, Y5N ONE (08:16)
[2021-02-09] MEDS: PRENATAL VITAMINS W/ FOLIC ACID TABLET (FP) PO SCH (10:35)
[2021-02-09] MEDS: TAMSULOSIN HCL 0.4 MG CAP PO SCH (10:35)
[2021-02-09] MEDS: NICOTINE 7 MG/24 HOURS TOPICAL PATCH TD SCH (10:35)
[2021-02-09] MEDS: PANTOPRAZOLE 40 MG TABLET PO SCH (10:35)
[2021-02-09] MEDS: GABAPENTIN 300 MG CAPSULE PO SCH ×2 (10:35→21:39)
[2021-02-09] MEDS: NADOLOL 20 MG TABLET (FP) PO SCH (10:35)
[2021-02-09] MEDS: MELATONIN 5 MG TABLETS PO SCH (21:39)
[2021-02-09] MEDS: THIAMINE HCL 100 MG TABLET (FP) PO SCH (21:39)
[2021-02-10] MEDS ORDERED: METHADONE HCL 10 MG TABLET ONE (05:53)
[2021-02-10] MEDS ORDERED: METHADONE HCL 40 MG DISPERSABLE TABLET ONE (05:53)
[2021-02-10] MEDS: METHADONE 40 MG, METHADONE 30 MG PO SCH (06:37)
[2021-02-10] MEDS: NADOLOL 20 MG TABLET (FP) PO SCH (09:35)
[2021-02-10] MEDS: TAMSULOSIN HCL 0.4 MG CAP PO SCH (09:35)
[2021-02-10] MEDS: GABAPENTIN 300 MG CAPSULE PO SCH ×2 (09:36→21:05)
[2021-02-10] MEDS: PANTOPRAZOLE 40 MG TABLET PO SCH (09:36)
[2021-02-10] MEDS: NICOTINE 7 MG/24 HOURS TOPICAL PATCH TD SCH (09:37)
[2021-02-10] MEDS: PRENATAL VITAMINS W/ FOLIC ACID TABLET (FP) PO SCH (09:37)
[2021-02-10] MEDS: THIAMINE HCL 100 MG TABLET (FP) PO SCH (21:05)
[2021-02-10] MEDS: MELATONIN 5 MG TABLETS PO SCH (21:05)
[2021-02-11] MEDS ORDERED: METHADONE HCL 10 MG TABLET ONE (05:00)
[2021-02-11] MEDS ORDERED: METHADONE HCL 40 MG DISPERSABLE TABLET ONE (05:00)
[2021-02-11] MEDS: METHADONE 40 MG, METHADONE 30 MG PO SCH (06:48)
[2021-02-11] MEDS: PRENATAL VITAMINS W/ FOLIC ACID TABLET (FP) PO SCH (09:41)
[2021-02-11] MEDS: TAMSULOSIN HCL 0.4 MG CAP PO SCH (09:41)
[2021-02-11] MEDS: GABAPENTIN 300 MG CAPSULE PO SCH ×2 (09:41→21:50)
[2021-02-11] MEDS: NADOLOL 20 MG TABLET (FP) PO SCH (09:41)
[2021-02-11] MEDS: NICOTINE 7 MG/24 HOURS TOPICAL PATCH TD SCH (09:41)
[2021-02-11] MEDS: PANTOPRAZOLE 40 MG TABLET PO SCH (09:41)
[2021-02-11] MEDS: THIAMINE HCL 100 MG TABLET (FP) PO SCH (21:50)
[2021-02-11] MEDS: MELATONIN 5 MG TABLETS PO SCH (21:50)
[2021-02-12] MEDS ORDERED: METHADONE HCL 10 MG TABLET ONE (03:43)
[2021-02-12] MEDS ORDERED: METHADONE HCL 40 MG DISPERSABLE TABLET ONE (03:44)
[2021-02-12] MEDS: METHADONE 40 MG, METHADONE 30 MG PO SCH (06:18)
[2021-02-12] MEDS: PRENATAL VITAMINS W/ FOLIC ACID TABLET (FP) PO SCH (09:49)
[2021-02-12] MEDS: NADOLOL 20 MG TABLET (FP) PO SCH (09:49)
[2021-02-12] MEDS: GABAPENTIN 300 MG CAPSULE PO SCH ×2 (09:49→22:04)
[2021-02-12] MEDS: PANTOPRAZOLE 40 MG TABLET PO SCH (09:49)
[2021-02-12] MEDS: TAMSULOSIN HCL 0.4 MG CAP PO SCH (09:49)
[2021-02-12] MEDS: NICOTINE 7 MG/24 HOURS TOPICAL PATCH TD SCH (09:50)
[2021-02-12] MEDS: THIAMINE HCL 100 MG TABLET (FP) PO SCH (22:04)
[2021-02-12] MEDS: MELATONIN 5 MG TABLETS PO SCH (22:04)
[2021-02-13] MEDS ORDERED: METHADONE HCL 10 MG TABLET ONE (03:16)
[2021-02-13] MEDS ORDERED: METHADONE HCL 40 MG DISPERSABLE TABLET ONE (03:17)
[2021-02-13] MEDS: METHADONE 40 MG, METHADONE 30 MG PO SCH (06:27)
[2021-02-13] MEDS: PRENATAL VITAMINS W/ FOLIC ACID TABLET (FP) PO SCH (09:38)
[2021-02-13] MEDS: GABAPENTIN 300 MG CAPSULE PO SCH ×2 (09:38→21:07)
[2021-02-13] MEDS: TAMSULOSIN HCL 0.4 MG CAP PO SCH (09:38)
[2021-02-13] MEDS: NADOLOL 20 MG TABLET (FP) PO SCH (09:38)
[2021-02-13] MEDS: NICOTINE 7 MG/24 HOURS TOPICAL PATCH TD SCH (09:38)
[2021-02-13] MEDS: PANTOPRAZOLE 40 MG TABLET PO SCH (09:38)
[2021-02-13] MEDS: MELATONIN 5 MG TABLETS PO SCH (21:07)
[2021-02-13] MEDS: THIAMINE HCL 100 MG TABLET (FP) PO SCH (21:07)
[2021-02-14] MEDS ORDERED: METHADONE HCL 10 MG TABLET ONE (04:02)
[2021-02-14] MEDS ORDERED: METHADONE HCL 40 MG DISPERSABLE TABLET ONE (04:02)
[2021-02-14] MEDS: METHADONE 40 MG, METHADONE 30 MG PO SCH (06:10)
[2021-02-14] MEDS ORDERED: PT OWN MED DRAWER 7, Y5N ONE (09:20)
[2021-02-14] MEDS: NADOLOL 20 MG TABLET (FP) PO SCH (09:44)
[2021-02-14] MEDS: GABAPENTIN 300 MG CAPSULE PO SCH ×2 (09:44→21:03)
[2021-02-14] MEDS: TAMSULOSIN HCL 0.4 MG CAP PO SCH (09:44)
[2021-02-14] MEDS: PRENATAL VITAMINS W/ FOLIC ACID TABLET (FP) PO SCH (09:44)
[2021-02-14] MEDS: PANTOPRAZOLE 40 MG TABLET PO SCH (09:44)
[2021-02-14] MEDS: NICOTINE 7 MG/24 HOURS TOPICAL PATCH TD SCH (09:45)
[2021-02-14] MEDS: THIAMINE HCL 100 MG TABLET (FP) PO SCH (21:03)
[2021-02-14] MEDS: MELATONIN 5 MG TABLETS PO SCH (21:03)
[2021-02-15] MEDS ORDERED: METHADONE HCL 40 MG DISPERSABLE TABLET ONE (03:18)
[2021-02-15] MEDS ORDERED: METHADONE HCL 10 MG TABLET ONE (03:18)
[2021-02-15] MEDS: METHADONE 40 MG, METHADONE 30 MG PO SCH (06:33)
[2021-02-15] MEDS: PANTOPRAZOLE 40 MG TABLET PO SCH (11:09)
[2021-02-15] MEDS: GABAPENTIN 300 MG CAPSULE PO SCH ×2 (11:09→21:11)
[2021-02-15] MEDS: PRENATAL VITAMINS W/ FOLIC ACID TABLET (FP) PO SCH (11:09)
[2021-02-15] MEDS: TAMSULOSIN HCL 0.4 MG CAP PO SCH (11:09)
[2021-02-15] MEDS: NICOTINE 7 MG/24 HOURS TOPICAL PATCH TD SCH (11:09)
[2021-02-15] MEDS: NADOLOL 20 MG TABLET (FP) PO SCH (11:10)
[2021-02-15] MEDS: MELATONIN 5 MG TABLETS PO SCH (21:11)
[2021-02-15] MEDS: THIAMINE HCL 100 MG TABLET (FP) PO SCH (21:11)
[2021-02-16] MEDS ORDERED: METHADONE HCL 40 MG DISPERSABLE TABLET ONE (06:04)
[2021-02-16] MEDS ORDERED: METHADONE HCL 10 MG TABLET ONE (06:04)
[2021-02-16] MEDS: METHADONE 40 MG, METHADONE 30 MG PO SCH (06:43)
[2021-02-16] MEDS ORDERED: LACTULOSE 20 GM/30 ML UDC (FOR ORAL USE ONLY) PO PRN (08:35)
[2021-02-16] MEDS: PRENATAL VITAMINS W/ FOLIC ACID TABLET (FP) PO SCH (09:53)
[2021-02-16] MEDS: PANTOPRAZOLE 40 MG TABLET PO SCH (09:54)
[2021-02-16] MEDS: NADOLOL 20 MG TABLET (FP) PO SCH (09:54)
[2021-02-16] MEDS: GABAPENTIN 300 MG CAPSULE PO SCH ×2 (09:54→21:14)
[2021-02-16] MEDS: TAMSULOSIN HCL 0.4 MG CAP PO SCH (09:54)
[2021-02-16] MEDS: NICOTINE 7 MG/24 HOURS TOPICAL PATCH TD SCH (09:55)
[2021-02-16] MEDS ORDERED: LACTULOSE 20 GM/30 ML UDC (FOR ORAL USE ONLY) PO ONE (10:15)
[2021-02-16] MEDS: LACTULOSE 20 GM/30 ML UDC (FOR ORAL USE ONLY) PO SCH ×2 (15:06→21:15)
[2021-02-16] MEDS: SPIRONOLACTONE 25 MG TABLET PO SCH (18:15)
[2021-02-16] MEDS ORDERED: PT OWN MED DRAWER 7, Y5N ONE (21:14)
[2021-02-16] MEDS: MELATONIN 5 MG TABLETS PO SCH (21:14)
[2021-02-16] MEDS: THIAMINE HCL 100 MG TABLET (FP) PO SCH (21:14)
[2021-02-16] MEDS: RIFAXIMIN 550 MG TABLET (UD) PO SCH (23:51)
[2021-02-17] MEDS ORDERED: METHADONE HCL 40 MG DISPERSABLE TABLET ONE (03:58)
[2021-02-17] MEDS ORDERED: METHADONE HCL 10 MG TABLET ONE (03:58)
[2021-02-17] MEDS: SPIRONOLACTONE 25 MG TABLET PO SCH ×2 (06:10→17:45)
[2021-02-17] MEDS: METHADONE 40 MG, METHADONE 30 MG PO SCH (06:10)
[2021-02-17] MEDS: LACTULOSE 20 GM/30 ML UDC (FOR ORAL USE ONLY) PO SCH ×3 (06:10→21:52)
[2021-02-17] MEDS: TAMSULOSIN HCL 0.4 MG CAP PO SCH (09:33)
[2021-02-17] MEDS: GABAPENTIN 300 MG CAPSULE PO SCH ×2 (09:33→21:53)
[2021-02-17] MEDS: PRENATAL VITAMINS W/ FOLIC ACID TABLET (FP) PO SCH (09:34)
[2021-02-17] MEDS: NICOTINE 7 MG/24 HOURS TOPICAL PATCH TD SCH (09:34)
[2021-02-17] MEDS: PANTOPRAZOLE 40 MG TABLET PO SCH (09:35)
[2021-02-17] MEDS: NADOLOL 20 MG TABLET (FP) PO SCH (09:37)
[2021-02-17] MEDS: RIFAXIMIN 550 MG TABLET (UD) PO SCH ×2 (11:28→22:02)
[2021-02-17] MEDS ORDERED: PT OWN MED DRAWER 7, Y5N ONE ×3 (17:43→22:02)
[2021-02-17] MEDS: THIAMINE HCL 100 MG TABLET (FP) PO SCH (21:53)
[2021-02-17] MEDS: MELATONIN 5 MG TABLETS PO SCH (22:01)
[2021-02-18] MEDS ORDERED: METHADONE HCL 10 MG TABLET ONE (04:03)
[2021-02-18] MEDS ORDERED: METHADONE HCL 40 MG DISPERSABLE TABLET ONE (04:03)
[2021-02-18] MEDS ORDERED: PT OWN MED DRAWER 7, Y5N ONE ×4 (04:04→20:27)
[2021-02-18] MEDS: SPIRONOLACTONE 25 MG TABLET PO SCH ×2 (06:13→17:29)
[2021-02-18] MEDS: LACTULOSE 20 GM/30 ML UDC (FOR ORAL USE ONLY) PO SCH ×3 (06:14→21:05)
[2021-02-18] MEDS: METHADONE 40 MG, METHADONE 30 MG PO SCH (06:14)
[2021-02-18] MEDS: NADOLOL 20 MG TABLET (FP) PO SCH (09:31)
[2021-02-18] MEDS: PRENATAL VITAMINS W/ FOLIC ACID TABLET (FP) PO SCH (09:31)
[2021-02-18] MEDS: RIFAXIMIN 550 MG TABLET (UD) PO SCH ×2 (09:31→21:05)
[2021-02-18] MEDS: TAMSULOSIN HCL 0.4 MG CAP PO SCH (09:31)
[2021-02-18] MEDS: PANTOPRAZOLE 40 MG TABLET PO SCH (09:31)
[2021-02-18] MEDS: NICOTINE 7 MG/24 HOURS TOPICAL PATCH TD SCH (09:32)
[2021-02-18] MEDS: GABAPENTIN 300 MG CAPSULE PO SCH ×2 (09:33→21:05)
[2021-02-18] MEDS: THIAMINE HCL 100 MG TABLET (FP) PO SCH (21:04)
[2021-02-18] MEDS: MELATONIN 5 MG TABLETS PO SCH (21:05)
[2021-02-19] MEDS ORDERED: METHADONE HCL 40 MG DISPERSABLE TABLET ONE (03:16)
[2021-02-19] MEDS ORDERED: METHADONE HCL 10 MG TABLET ONE (03:16)
[2021-02-19] MEDS: SPIRONOLACTONE 25 MG TABLET PO SCH ×2 (06:00→17:45)
[2021-02-19] MEDS: LACTULOSE 20 GM/30 ML UDC (FOR ORAL USE ONLY) PO SCH ×3 (06:00→21:03)
[2021-02-19] MEDS: METHADONE 40 MG, METHADONE 30 MG PO SCH (06:01)
[2021-02-19] MEDS: NADOLOL 20 MG TABLET (FP) PO SCH (09:25)
[2021-02-19] MEDS: GABAPENTIN 300 MG CAPSULE PO SCH ×2 (09:25→21:04)
[2021-02-19] MEDS: RIFAXIMIN 550 MG TABLET (UD) PO SCH ×2 (09:25→21:04)
[2021-02-19] MEDS: PANTOPRAZOLE 40 MG TABLET PO SCH (09:25)
[2021-02-19] MEDS: TAMSULOSIN HCL 0.4 MG CAP PO SCH (09:25)
[2021-02-19] MEDS: NICOTINE 7 MG/24 HOURS TOPICAL PATCH TD SCH (09:26)
[2021-02-19] MEDS: PRENATAL VITAMINS W/ FOLIC ACID TABLET (FP) PO SCH (09:26)
[2021-02-19] MEDS ORDERED: PT OWN MED DRAWER 7, Y5N ONE (20:04)
[2021-02-19] MEDS: THIAMINE HCL 100 MG TABLET (FP) PO SCH (21:04)
[2021-02-19] MEDS: MELATONIN 5 MG TABLETS PO SCH (21:04)
[2021-02-20] MEDS ORDERED: METHADONE HCL 40 MG DISPERSABLE TABLET ONE (03:59)
[2021-02-20] MEDS ORDERED: METHADONE HCL 10 MG TABLET ONE (03:59)
[2021-02-20] MEDS ORDERED: PT OWN MED DRAWER 7, Y5N ONE ×2 (04:01→09:18)
[2021-02-20] MEDS: LACTULOSE 20 GM/30 ML UDC (FOR ORAL USE ONLY) PO SCH (06:33)
[2021-02-20] MEDS: METHADONE 40 MG, METHADONE 30 MG PO SCH (06:33)
[2021-02-20] MEDS: SPIRONOLACTONE 25 MG TABLET PO SCH (07:55)
[2021-02-20 07:57] VITALS: BP 104/66; PULSE 73; TEMP 98
[2021-02-20] MEDS: PRENATAL VITAMINS W/ FOLIC ACID TABLET (FP) PO SCH (09:33)
[2021-02-20] MEDS: NICOTINE 7 MG/24 HOURS TOPICAL PATCH TD SCH (09:33)
[2021-02-20] MEDS: TAMSULOSIN HCL 0.4 MG CAP PO SCH (09:33)
[2021-02-20] MEDS: RIFAXIMIN 550 MG TABLET (UD) PO SCH (09:33)
[2021-02-20] MEDS: GABAPENTIN 300 MG CAPSULE PO SCH (09:33)
[2021-02-20] MEDS: PANTOPRAZOLE 40 MG TABLET PO SCH (09:33)
[2021-02-20] MEDS: NADOLOL 20 MG TABLET (FP) PO SCH (09:33)
== END 2021-02-20 10:45 | disposition home or self-care (01) | DRG 772 ==
LOC: YASAS 10:54 → Y5N 10:55
PROVIDERS: ADMIT Allergy & Immunology; ATTEND Allergy & Immunology
PROC: HZ42ZZZ Group Counseling for Substance Abuse Treatment, Cognitive-Behavioral (ICD-10-PCS; principal; 2021-02-02)
DX: F10.20 Alcohol dependence, uncomplicated (principal); F11.20 Opioid dependence, uncomplicated; F17.210 Nicotine dependence, cigarettes, uncomplicated; D69.6 Thrombocytopenia, unspecified; E72.20 Disorder of urea cycle metabolism, unspecified; G62.9 Polyneuropathy, unspecified; I11.0 Hypertensive heart disease with heart failure; I50.9 Heart failure, unspecified; J45.909 Unspecified asthma, uncomplicated; K21.9 Gastro-esophageal reflux disease without esophagitis; N40.0 Benign prostatic hyperplasia without lower urinary tract symptoms; B18.2 Chronic viral hepatitis C; R29.6 Repeated falls; Z99.89 Dependence on other enabling machines and devices; W19.XXXA Unspecified fall, initial encounter; Y93.E1 Activity, personal bathing and showering; Y92.230 Patient room in hospital as the place of occurrence of the external cause
CPT/HCPCS: 82140; C9803; U0003; U0005

== ENCOUNTER 2021-05-10 10:47 | Inpatient (IN) | payer OTHER ==
[2021-05-10 12:45] VITALS: BMI 35.5
[2021-05-10] MEDS ORDERED: METHOCARBAMOL 500 MG TABLET PO PRN (13:30)
[2021-05-10] MEDS ORDERED: BISMUTH SUBSALICYLATE 524 MG/30 ML PO PRN (13:30)
[2021-05-10] MEDS ORDERED: MAGNESIUM CITRATE 300 ML BOTTLE PO PRN (13:30)
[2021-05-10] MEDS ORDERED: ONDANSETRON *ODT* 4 MG TABLET SL PRN (13:30)
[2021-05-10] MEDS ORDERED: MAG HYDROX/AL HYDROX/SIMETH 30 ML UNIT-DOSE CUP PO PRN (13:30)
[2021-05-10] MEDS ORDERED: MENTHOL/PHENOL 1 EACH UD MM PRN (13:30)
[2021-05-10] MEDS ORDERED: MAGNESIUM HYDROX 2400MG/30ML ORAL SUSPENSION 30 ML CUP PO PRN (13:30)
[2021-05-10] MEDS ORDERED: ACETAMINOPHEN 325 MG TABLET (FP) PO PRN ×2 (13:30)
[2021-05-10] MEDS ORDERED: diazePAM 5 MG TABLET PO PRN (13:30)
[2021-05-10] MEDS ORDERED: methaDONE HCL 10 MG TABLET PO SCH (13:45)
[2021-05-10] MEDS ORDERED: methaDONE 40 MG, methaDONE 30 MG PO ONE (14:00)
[2021-05-10] MEDS ORDERED: methaDONE HCL 10 MG TABLET ONE (14:59)
[2021-05-10] MEDS ORDERED: methaDONE HCL 40 MG DISPERSABLE TABLET ONE (15:00)
[2021-05-10 15:01] LABS: HEMATOCRIT 35.7 % (35.4-49); HEMOGLOBIN 11.8 GM/dL (11.7-16.9); MCHC 33.2 g/dl (32.0-35.9); MEAN CELL VOLUME 99.6 fl (80-96); MEAN PLT VOLUME 10.2 fl (7.5-11.1); PLATELET COUNT 51 10^3/uL (134-434); RBC 3.58 M/mm3 (4.00-5.60); RDW 17.9 % (11.9-15.9); WHITE BLOOD COUNT 8.9 K/mm3 (4.0-10.0)
[2021-05-10] MEDS: IBUPROFEN 400 MG TABLET (FP) PO PRN (15:03)
[2021-05-10] MEDS: hydrOXYzine PAMOATE 25 MG CAPSULE (FP) PO SCH ×3 (15:03→22:22)
[2021-05-10 15:07] LABS: CALCIUM 8.7 mg/dL (8.5-10.1)
[2021-05-10 15:08] LABS: ALBUMIN 3.1 g/dl (3.4-5.0); BLOOD UREA NITROGEN 14.2 mg/dL (7-18)
[2021-05-10 15:11] LABS: CREATININE 1.7 mg/dL (0.55-1.3)
[2021-05-10 15:13] LABS: TOT PROT 8.5 g/dl (6.4-8.2)
[2021-05-10 16:02] LABS: HIV INTERPRETATION NEGATIVE (NEGATIVE)
[2021-05-10] MEDS: diazePAM 5 MG TABLET PO SCH ×2 (17:55→22:22)
[2021-05-10] MEDS: MELATONIN 5 MG TABLETS PO SCH (22:22)
[2021-05-10] MEDS: THIAMINE HCL 100 MG TABLET (FP) PO SCH (22:22)
[2021-05-11] MEDS ORDERED: methaDONE HCL 10 MG TABLET ONE (04:10)
[2021-05-11] MEDS ORDERED: methaDONE HCL 40 MG DISPERSABLE TABLET ONE (04:11)
[2021-05-11] MEDS: methaDONE 40 MG, methaDONE 30 MG PO SCH (05:48)
[2021-05-11] MEDS: diazePAM 5 MG TABLET PO SCH ×4 (05:49→22:05)
[2021-05-11] MEDS: hydrOXYzine PAMOATE 25 MG CAPSULE (FP) PO SCH ×5 (05:49→22:05)
[2021-05-11] MEDS: PRENATAL VITAMINS W/ FOLIC ACID TABLET (FP) PO SCH (10:10)
[2021-05-11] MEDS: THIAMINE HCL 100 MG TABLET (FP) PO SCH (22:05)
[2021-05-11] MEDS: MELATONIN 5 MG TABLETS PO SCH (22:05)
[2021-05-12] MEDS ORDERED: methaDONE HCL 10 MG TABLET ONE (04:10)
[2021-05-12] MEDS ORDERED: methaDONE HCL 40 MG DISPERSABLE TABLET ONE (04:10)
[2021-05-12] MEDS: methaDONE 40 MG, methaDONE 30 MG PO SCH (05:40)
[2021-05-12] MEDS: hydrOXYzine PAMOATE 25 MG CAPSULE (FP) PO SCH ×5 (05:40→22:30)
[2021-05-12] MEDS: diazePAM 5 MG TABLET PO SCH ×3 (05:40→22:31)
[2021-05-12] MEDS: IBUPROFEN 400 MG TABLET (FP) PO PRN (05:42)
[2021-05-12] MEDS ORDERED: INSULIN SLIDING SCALE (NOVOLOG) 1 VIAL SQ ONE (08:07)
[2021-05-12] MEDS ORDERED: INSULIN (NOVOLOG) ASPART 100 UNITS/ML 10ML VIAL SQ ONE (08:15)
[2021-05-12] MEDS: TAMSULOSIN HCL 0.4 MG CAP PO SCH (11:20)
[2021-05-12] MEDS: GABAPENTIN 300 MG CAPSULE PO SCH ×2 (11:20→22:30)
[2021-05-12] MEDS: PRENATAL VITAMINS W/ FOLIC ACID TABLET (FP) PO SCH (11:21)
[2021-05-12 11:30] LABS: ALBUMIN 2.6 g/dl (3.4-5.0); CREATININE 1.3 mg/dL (0.55-1.3)
[2021-05-12 11:34] LABS: BILIRUBIN,DIRECT 1.6 mg/dL (0.0-0.2)
[2021-05-12 11:35] LABS: BILIRUBIN,TOTAL 2.6 mg/dL (0.2-1); TOT PROT 7.2 g/dl (6.4-8.2)
[2021-05-12] MEDS ORDERED: INSULIN (NOVOLOG) ASPART 100 UNITS/ML 10ML VIAL ONE ×2 (11:47→18:02)
[2021-05-12] MEDS: INSULIN (NOVOLOG) ASPART 100 UNITS/ML 10ML VIAL SQ SCH ×3 (11:48→22:32)
[2021-05-12] MEDS: LACTULOSE 20 GM/30 ML UDC (FOR ORAL USE ONLY) PO SCH ×2 (13:45→22:56)
[2021-05-12] MEDS: THIAMINE HCL 100 MG TABLET (FP) PO SCH (22:30)
[2021-05-12] MEDS: MELATONIN 5 MG TABLETS PO SCH (22:57)
[2021-05-13] MEDS ORDERED: methaDONE HCL 10 MG TABLET ONE (04:05)
[2021-05-13] MEDS ORDERED: methaDONE HCL 40 MG DISPERSABLE TABLET ONE (04:06)
[2021-05-13] MEDS: diazePAM 5 MG TABLET PO SCH ×2 (05:29→17:26)
[2021-05-13] MEDS: hydrOXYzine PAMOATE 25 MG CAPSULE (FP) PO SCH ×5 (05:30→22:28)
[2021-05-13] MEDS: methaDONE 40 MG, methaDONE 30 MG PO SCH (05:30)
[2021-05-13] MEDS ORDERED: INSULIN (NOVOLOG) ASPART 100 UNITS/ML 10ML VIAL ONE ×3 (05:30→16:41)
[2021-05-13] MEDS: LACTULOSE 20 GM/30 ML UDC (FOR ORAL USE ONLY) PO SCH ×3 (05:49→22:32)
[2021-05-13] MEDS: INSULIN (NOVOLOG) ASPART 100 UNITS/ML 10ML VIAL SQ SCH ×3 (06:05→17:06)
[2021-05-13] MEDS: PRENATAL VITAMINS W/ FOLIC ACID TABLET (FP) PO SCH (10:25)
[2021-05-13] MEDS: TAMSULOSIN HCL 0.4 MG CAP PO SCH (10:25)
[2021-05-13] MEDS: GABAPENTIN 300 MG CAPSULE PO SCH ×2 (10:25→22:28)
[2021-05-13] MEDS ORDERED: MASKS NR ONE (17:26)
[2021-05-13] MEDS: MELATONIN 5 MG TABLETS PO SCH (22:28)
[2021-05-13] MEDS: THIAMINE HCL 100 MG TABLET (FP) PO SCH (22:28)
[2021-05-14] MEDS ORDERED: INSULIN (NOVOLOG) ASPART 100 UNITS/ML 10ML VIAL SQ SCH (00:15)
[2021-05-14] MEDS: INSULIN (NOVOLOG) ASPART 100 UNITS/ML 10ML VIAL SQ SCH ×2 (00:33→06:43)
[2021-05-14] MEDS ORDERED: methaDONE HCL 40 MG DISPERSABLE TABLET ONE (04:08)
[2021-05-14] MEDS ORDERED: methaDONE HCL 10 MG TABLET ONE (04:08)
[2021-05-14] MEDS ORDERED: diazePAM 5 MG TABLET PO ONE (06:00)
[2021-05-14] MEDS: hydrOXYzine PAMOATE 25 MG CAPSULE (FP) PO SCH (06:09)
[2021-05-14] MEDS: methaDONE 40 MG, methaDONE 30 MG PO SCH (06:09)
[2021-05-14] MEDS: LACTULOSE 20 GM/30 ML UDC (FOR ORAL USE ONLY) PO SCH (06:11)
[2021-05-14 06:51] VITALS: BP 104/56; PULSE 63; TEMP 98.2
[2021-05-14] MEDS: TAMSULOSIN HCL 0.4 MG CAP PO SCH (09:05)
[2021-05-14] MEDS: GABAPENTIN 300 MG CAPSULE PO SCH (09:05)
== END 2021-05-14 09:47 | disposition home or self-care (01) | DRG 773 ==
LOC: YASAS 10:47 → Y6N 14:04
PROVIDERS: ADMIT Allergy & Immunology; ATTEND Allergy & Immunology
PROC: HZ2ZZZZ Detoxification Services for Substance Abuse Treatment (ICD-10-PCS; principal; 2021-05-10)
DX: F10.230 Alcohol dependence with withdrawal, uncomplicated (principal); F11.20 Opioid dependence, uncomplicated; F17.210 Nicotine dependence, cigarettes, uncomplicated; D69.6 Thrombocytopenia, unspecified; K70.9 Alcoholic liver disease, unspecified; G62.9 Polyneuropathy, unspecified; K21.9 Gastro-esophageal reflux disease without esophagitis; E11.65 Type 2 diabetes mellitus with hyperglycemia; Z79.4 Long term (current) use of insulin; I10 Essential (primary) hypertension; B18.2 Chronic viral hepatitis C; N40.0 Benign prostatic hyperplasia without lower urinary tract symptoms; M54.5 Low back pain; R26.2 Difficulty in walking, not elsewhere classified; Z99.89 Dependence on other enabling machines and devices; Z86.79 Personal history of other diseases of the circulatory system; Z91.011 Allergy to milk products; Z98.84 Bariatric surgery status
CPT/HCPCS: 36415; 80053; 80076; 82565; 82962; 83036; 85027; 86780; 87389; C9803; Q0162; U0003; U0005

== ENCOUNTER 2021-07-21 15:25 | Inpatient (IN) | payer OTHER ==
[2021-07-21] MEDS ORDERED: MAG HYDROX/AL HYDROX/SIMETH 30 ML UNIT-DOSE CUP PO PRN (18:52)
[2021-07-21] MEDS ORDERED: NALOXONE (NARCAN) HCL 4 MG/0.1 ML SPRAY NS PRN (18:52)
[2021-07-21] MEDS ORDERED: guaiFENesin 200 MG/10 ML 10 ML UNIT-DOSE CUPS PO PRN (18:52)
[2021-07-21] MEDS ORDERED: DICYCLOMINE HCL 10 MG CAPSULE PO PRN (18:52)
[2021-07-21] MEDS ORDERED: NALOXONE HCL 0.4 MG/ML VIAL IM PRN (18:52)
[2021-07-21] MEDS ORDERED: IBUPROFEN 400 MG TABLET (FP) PO PRN (18:52)
[2021-07-21] MEDS ORDERED: MAGNESIUM CITRATE 300 ML BOTTLE PO PRN (18:52)
[2021-07-21] MEDS ORDERED: P-EPHED 60MG/TRIPROLIDI 2.5MG TABLET PO PRN (18:52)
[2021-07-21] MEDS ORDERED: MAGNESIUM HYDROX 2400MG/30ML ORAL SUSPENSION 30 ML CUP PO PRN (18:52)
[2021-07-21] MEDS ORDERED: NICOTINE 10 MG CARTRIDGE (INHALER) IH PRN (18:52)
[2021-07-21] MEDS ORDERED: MENTHOL/PHENOL 1 EACH UD MM PRN (18:52)
[2021-07-21] MEDS ORDERED: BISMUTH SUBSALICYLATE 524 MG/30 ML PO PRN (18:52)
[2021-07-21] MEDS ORDERED: ACETAMINOPHEN 325 MG TABLET (FP) PO PRN ×2 (18:52)
[2021-07-21] MEDS ORDERED: ONDANSETRON *ODT* 4 MG TABLET SL PRN (18:52)
[2021-07-21] MEDS: THIAMINE HCL 100 MG TABLET (FP) PO SCH (21:11)
[2021-07-21] MEDS: MELATONIN 5 MG TABLETS PO SCH (23:03)
[2021-07-22] MEDS: METHOCARBAMOL 500 MG TABLET PO PRN ×3 (02:38→16:21)
[2021-07-22] MEDS ORDERED: cloNIDine HCL 0.1 MG TABLET PO ONE (03:15)
[2021-07-22] MEDS ORDERED: methaDONE HCL 10 MG TABLET PO SCH (09:45)
[2021-07-22] MEDS ORDERED: methaDONE 40 MG, methaDONE 30 MG PO ONE (10:00)
[2021-07-22] MEDS ORDERED: methaDONE HCL 10 MG TABLET ONE (10:42)
[2021-07-22] MEDS ORDERED: methaDONE HCL 40 MG DISPERSABLE TABLET ONE (10:43)
[2021-07-22] MEDS: PRENATAL VITAMINS W/ FOLIC ACID TABLET (FP) PO SCH (10:48)
[2021-07-22] MEDS: NICOTINE 14 MG/24 HOURS TOPICAL PATCH TD SCH (10:48)
[2021-07-22] MEDS: LORazepam 1 MG TABLET PO SCH ×2 (16:22→22:01)
[2021-07-22] MEDS: INSULIN SLIDING SCALE (NOVOLOG) 1 VIAL SQ SCH ×2 (16:31→22:00)
[2021-07-22] MEDS: metFORMIN HCL 500 MG TABLET (FP) PO SCH (17:28)
[2021-07-22] MEDS: THIAMINE HCL 100 MG TABLET (FP) PO SCH (21:57)
[2021-07-22] MEDS: GABAPENTIN 300 MG CAPSULE PO SCH (21:57)
[2021-07-22] MEDS: FUROSEMIDE 40 MG TABLET (FP) PO SCH (21:57)
[2021-07-22] MEDS: MELATONIN 5 MG TABLETS PO SCH (21:57)
[2021-07-23] MEDS ORDERED: methaDONE HCL 10 MG TABLET ONE (04:27)
[2021-07-23] MEDS ORDERED: methaDONE HCL 40 MG DISPERSABLE TABLET ONE (04:28)
[2021-07-23] MEDS: LORazepam 0.5 MG TABLET PO SCH ×4 (05:10→22:26)
[2021-07-23] MEDS: methaDONE 40 MG, methaDONE 30 MG PO SCH (05:10)
[2021-07-23] MEDS: metFORMIN HCL 500 MG TABLET (FP) PO SCH ×2 (06:34→16:34)
[2021-07-23] MEDS: INSULIN SLIDING SCALE (NOVOLOG) 1 VIAL SQ SCH ×4 (06:35→22:28)
[2021-07-23] MEDS: TAMSULOSIN HCL 0.4 MG CAP PO SCH (08:01)
[2021-07-23] MEDS: GABAPENTIN 300 MG CAPSULE PO SCH ×2 (10:20→22:26)
[2021-07-23] MEDS: PRENATAL VITAMINS W/ FOLIC ACID TABLET (FP) PO SCH (10:20)
[2021-07-23] MEDS: PANTOPRAZOLE 40 MG TABLET PO SCH (10:20)
[2021-07-23] MEDS: METHOCARBAMOL 500 MG TABLET PO PRN (10:20)
[2021-07-23] MEDS: NICOTINE 14 MG/24 HOURS TOPICAL PATCH TD SCH (10:20)
[2021-07-23] MEDS: FUROSEMIDE 40 MG TABLET (FP) PO SCH ×2 (10:20→22:27)
[2021-07-23 14:50] LABS: HEMATOCRIT 37.4 % (35.4-49); HEMOGLOBIN 12.9 GM/dL (11.7-16.9); MCH 36.3 pg (25.7-33.7); MCHC 34.6 g/dl (32.0-35.9); MEAN CELL VOLUME 104.9 fl (80-96); MEAN PLT VOLUME 10.1 fl (7.5-11.1); PLATELET COUNT 78 10^3/uL (134-434); RBC 3.57 M/mm3 (4.00-5.60); RDW 17.2 % (11.9-15.9); WHITE BLOOD COUNT 5.8 K/mm3 (4.0-10.0)
[2021-07-23 14:55] LABS: ALBUMIN 3.2 g/dl (3.4-5.0); CALCIUM 8.5 mg/dL (8.5-10.1)
[2021-07-23 14:56] LABS: BLOOD UREA NITROGEN 11.6 mg/dL (7-18)
[2021-07-23 14:59] LABS: CREATININE 1.1 mg/dL (0.55-1.3)
[2021-07-23 15:00] LABS: BILIRUBIN,TOTAL 2.1 mg/dL (0.2-1); TOT PROT 9.4 g/dl (6.4-8.2)
[2021-07-23 18:25] LABS: HIV INTERPRETATION NEGATIVE (NEGATIVE)
[2021-07-23] MEDS: MELATONIN 5 MG TABLETS PO SCH (22:26)
[2021-07-23] MEDS: THIAMINE HCL 100 MG TABLET (FP) PO SCH (22:27)
[2021-07-24] MEDS ORDERED: methaDONE HCL 10 MG TABLET ONE (04:33)
[2021-07-24] MEDS ORDERED: methaDONE HCL 40 MG DISPERSABLE TABLET ONE (04:34)
[2021-07-24] MEDS ORDERED: LORazepam 0.5 MG TABLET PO ONE (05:00)
[2021-07-24] MEDS: methaDONE 40 MG, methaDONE 30 MG PO SCH (05:50)
[2021-07-24] MEDS: INSULIN SLIDING SCALE (NOVOLOG) 1 VIAL SQ SCH ×2 (06:46→11:38)
[2021-07-24] MEDS: metFORMIN HCL 500 MG TABLET (FP) PO SCH (07:44)
[2021-07-24] MEDS: TAMSULOSIN HCL 0.4 MG CAP PO SCH (07:44)
[2021-07-24 09:28] VITALS: BP 130/76; PULSE 99; TEMP 94.4
[2021-07-24] MEDS: NICOTINE 14 MG/24 HOURS TOPICAL PATCH TD SCH (10:13)
[2021-07-24] MEDS: PANTOPRAZOLE 40 MG TABLET PO SCH (10:13)
[2021-07-24] MEDS: PRENATAL VITAMINS W/ FOLIC ACID TABLET (FP) PO SCH (10:13)
[2021-07-24] MEDS: GABAPENTIN 300 MG CAPSULE PO SCH (10:13)
[2021-07-24] MEDS: FUROSEMIDE 40 MG TABLET (FP) PO SCH (10:13)
[2021-07-25] MEDS ORDERED: LORazepam 0.5 MG TABLET PO PRN
== END 2021-07-24 13:00 | disposition other institution (70) | DRG 773 ==
LOC: YASAS 15:25 → Y6N 20:09 → UNDOADMIN 20:09
PROVIDERS: ADMIT Allergy & Immunology; ATTEND Allergy & Immunology
PROC: HZ2ZZZZ Detoxification Services for Substance Abuse Treatment (ICD-10-PCS; principal; 2021-07-21)
DX: F10.230 Alcohol dependence with withdrawal, uncomplicated (principal); F11.20 Opioid dependence, uncomplicated; F17.213 Nicotine dependence, cigarettes, with withdrawal; G62.9 Polyneuropathy, unspecified; I11.0 Hypertensive heart disease with heart failure; I50.9 Heart failure, unspecified; E11.9 Type 2 diabetes mellitus without complications; Z79.84 Long term (current) use of oral hypoglycemic drugs; K21.9 Gastro-esophageal reflux disease without esophagitis; N40.0 Benign prostatic hyperplasia without lower urinary tract symptoms; B18.2 Chronic viral hepatitis C; R26.89 Other abnormalities of gait and mobility; Z99.89 Dependence on other enabling machines and devices; Z86.11 Personal history of tuberculosis; Z91.011 Allergy to milk products
CPT/HCPCS: 36415; 80053; 82962; 85027; 86780; 87389; 87811; C9803; J0735; U0003; U0005

== ENCOUNTER 2021-07-24 13:21 | Inpatient (IN) | payer OTHER ==
[2021-07-24] MEDS ORDERED: guaiFENesin 200 MG/10 ML 10 ML UNIT-DOSE CUPS PO PRN (15:42)
[2021-07-24] MEDS ORDERED: ACETAMINOPHEN 325 MG TABLET (FP) PO PRN (15:42)
[2021-07-24] MEDS ORDERED: LOPERAMIDE HCL 2 MG CAPSULE PO PRN (15:42)
[2021-07-24] MEDS ORDERED: IBUPROFEN 400 MG TABLET (FP) PO PRN (15:42)
[2021-07-24] MEDS ORDERED: MAGNESIUM CITRATE 300 ML BOTTLE PO PRN (15:42)
[2021-07-24] MEDS ORDERED: MAGNESIUM HYDROX 2400MG/30ML ORAL SUSPENSION 30 ML CUP PO PRN (15:42)
[2021-07-24] MEDS ORDERED: MENTHOL/PHENOL 1 EACH UD MM PRN (15:42)
[2021-07-24] MEDS ORDERED: P-EPHED 60MG/TRIPROLIDI 2.5MG TABLET PO PRN (15:42)
[2021-07-24] MEDS ORDERED: MAG HYDROX/AL HYDROX/SIMETH 30 ML UNIT-DOSE CUP PO PRN (15:42)
[2021-07-24] MEDS: metFORMIN HCL 500 MG TABLET (FP) PO SCH (17:12)
[2021-07-24] MEDS: hydrOXYzine PAMOATE 25 MG CAPSULE (FP) PO SCH ×2 (17:12→21:15)
[2021-07-24] MEDS: INSULIN SLIDING SCALE (NOVOLOG) 1 VIAL SQ SCH (17:14)
[2021-07-24] MEDS: GABAPENTIN 300 MG CAPSULE PO SCH (21:14)
[2021-07-24] MEDS: FUROSEMIDE 40 MG TABLET (FP) PO SCH (21:14)
[2021-07-24] MEDS: THIAMINE HCL 100 MG TABLET (FP) PO SCH (21:15)
[2021-07-24] MEDS: MELATONIN 5 MG TABLETS PO SCH (23:39)
[2021-07-25] MEDS ORDERED: methaDONE HCL 40 MG DISPERSABLE TABLET ONE (05:53)
[2021-07-25] MEDS ORDERED: methaDONE HCL 10 MG TABLET ONE (05:54)
[2021-07-25] MEDS ORDERED: methaDONE HCL 40 MG DISPERSABLE TABLET PO SCH (06:00)
[2021-07-25] MEDS: methaDONE 40 MG, methaDONE 30 MG PO SCH (06:25)
[2021-07-25] MEDS: hydrOXYzine PAMOATE 25 MG CAPSULE (FP) PO SCH ×5 (06:26→21:20)
[2021-07-25] MEDS: metFORMIN HCL 500 MG TABLET (FP) PO SCH ×2 (06:27→16:45)
[2021-07-25] MEDS: INSULIN SLIDING SCALE (NOVOLOG) 1 VIAL SQ SCH ×2 (06:28→16:45)
[2021-07-25] MEDS: TAMSULOSIN HCL 0.4 MG CAP PO SCH (07:42)
[2021-07-25] MEDS: NICOTINE 14 MG/24 HOURS TOPICAL PATCH TD SCH (10:25)
[2021-07-25] MEDS: GABAPENTIN 300 MG CAPSULE PO SCH ×2 (10:25→21:20)
[2021-07-25] MEDS: PANTOPRAZOLE 40 MG TABLET PO SCH (10:25)
[2021-07-25] MEDS: PRENATAL VITAMINS W/ FOLIC ACID TABLET (FP) PO SCH (10:25)
[2021-07-25] MEDS: FUROSEMIDE 40 MG TABLET (FP) PO SCH ×2 (10:26→21:21)
[2021-07-25] MEDS: THIAMINE HCL 100 MG TABLET (FP) PO SCH (21:20)
[2021-07-25] MEDS: MELATONIN 5 MG TABLETS PO SCH (21:20)
[2021-07-26] MEDS ORDERED: methaDONE HCL 10 MG TABLET ONE (03:07)
[2021-07-26] MEDS ORDERED: methaDONE HCL 40 MG DISPERSABLE TABLET ONE (03:07)
[2021-07-26] MEDS: hydrOXYzine PAMOATE 25 MG CAPSULE (FP) PO SCH ×5 (06:02→21:08)
[2021-07-26] MEDS: metFORMIN HCL 500 MG TABLET (FP) PO SCH ×2 (06:02→16:27)
[2021-07-26] MEDS: methaDONE 40 MG, methaDONE 30 MG PO SCH (06:02)
[2021-07-26] MEDS: INSULIN SLIDING SCALE (NOVOLOG) 1 VIAL SQ SCH ×2 (06:03→16:27)
[2021-07-26] MEDS: TAMSULOSIN HCL 0.4 MG CAP PO SCH (07:42)
[2021-07-26] MEDS: NICOTINE 14 MG/24 HOURS TOPICAL PATCH TD SCH (10:13)
[2021-07-26] MEDS: PRENATAL VITAMINS W/ FOLIC ACID TABLET (FP) PO SCH (10:13)
[2021-07-26] MEDS: GABAPENTIN 300 MG CAPSULE PO SCH ×2 (10:13→21:08)
[2021-07-26] MEDS: PANTOPRAZOLE 40 MG TABLET PO SCH (10:13)
[2021-07-26] MEDS: FUROSEMIDE 40 MG TABLET (FP) PO SCH ×2 (10:13→21:09)
[2021-07-26] MEDS: MELATONIN 5 MG TABLETS PO SCH (21:08)
[2021-07-26] MEDS: THIAMINE HCL 100 MG TABLET (FP) PO SCH (21:08)
[2021-07-27] MEDS ORDERED: methaDONE HCL 10 MG TABLET ONE (03:15)
[2021-07-27] MEDS ORDERED: methaDONE HCL 40 MG DISPERSABLE TABLET ONE (03:15)
[2021-07-27] MEDS: methaDONE 40 MG, methaDONE 30 MG PO SCH (06:28)
[2021-07-27] MEDS: hydrOXYzine PAMOATE 25 MG CAPSULE (FP) PO SCH ×5 (06:28→21:27)
[2021-07-27] MEDS: metFORMIN HCL 500 MG TABLET (FP) PO SCH ×2 (06:30→16:53)
[2021-07-27] MEDS: INSULIN SLIDING SCALE (NOVOLOG) 1 VIAL SQ SCH ×2 (06:30→16:53)
[2021-07-27] MEDS: NICOTINE 14 MG/24 HOURS TOPICAL PATCH TD SCH (10:03)
[2021-07-27] MEDS: PRENATAL VITAMINS W/ FOLIC ACID TABLET (FP) PO SCH (10:03)
[2021-07-27] MEDS: PANTOPRAZOLE 40 MG TABLET PO SCH (10:03)
[2021-07-27] MEDS: GABAPENTIN 300 MG CAPSULE PO SCH ×2 (11:58→21:27)
[2021-07-27] MEDS: TAMSULOSIN HCL 0.4 MG CAP PO SCH (11:58)
[2021-07-27] MEDS: FUROSEMIDE 40 MG TABLET (FP) PO SCH ×2 (11:58→21:27)
[2021-07-27] MEDS: THIAMINE HCL 100 MG TABLET (FP) PO SCH (21:27)
[2021-07-27] MEDS: MELATONIN 5 MG TABLETS PO SCH (21:28)
[2021-07-28] MEDS ORDERED: methaDONE HCL 40 MG DISPERSABLE TABLET ONE (03:14)
[2021-07-28] MEDS ORDERED: methaDONE HCL 10 MG TABLET ONE (03:14)
[2021-07-28] MEDS: methaDONE 40 MG, methaDONE 30 MG PO SCH (06:18)
[2021-07-28] MEDS: metFORMIN HCL 500 MG TABLET (FP) PO SCH ×2 (06:19→17:26)
[2021-07-28] MEDS: hydrOXYzine PAMOATE 25 MG CAPSULE (FP) PO SCH ×5 (06:19→21:15)
[2021-07-28] MEDS: INSULIN SLIDING SCALE (NOVOLOG) 1 VIAL SQ SCH ×2 (06:21→17:26)
[2021-07-28] MEDS: GABAPENTIN 300 MG CAPSULE PO SCH ×2 (10:11→21:15)
[2021-07-28] MEDS: FUROSEMIDE 40 MG TABLET (FP) PO SCH ×2 (10:11→21:15)
[2021-07-28] MEDS: NICOTINE 14 MG/24 HOURS TOPICAL PATCH TD SCH (10:11)
[2021-07-28] MEDS: PANTOPRAZOLE 40 MG TABLET PO SCH (10:11)
[2021-07-28] MEDS: PRENATAL VITAMINS W/ FOLIC ACID TABLET (FP) PO SCH (10:11)
[2021-07-28] MEDS: TAMSULOSIN HCL 0.4 MG CAP PO SCH (10:11)
[2021-07-28] MEDS: THIAMINE HCL 100 MG TABLET (FP) PO SCH (21:15)
[2021-07-28] MEDS: MELATONIN 5 MG TABLETS PO SCH (21:16)
[2021-07-29] MEDS ORDERED: methaDONE HCL 40 MG DISPERSABLE TABLET ONE (03:19)
[2021-07-29] MEDS ORDERED: methaDONE HCL 10 MG TABLET ONE (03:20)
[2021-07-29] MEDS: hydrOXYzine PAMOATE 25 MG CAPSULE (FP) PO SCH ×5 (06:28→21:18)
[2021-07-29] MEDS: methaDONE 40 MG, methaDONE 30 MG PO SCH (06:28)
[2021-07-29] MEDS: INSULIN SLIDING SCALE (NOVOLOG) 1 VIAL SQ SCH ×2 (06:30→16:32)
[2021-07-29] MEDS: metFORMIN HCL 500 MG TABLET (FP) PO SCH ×2 (07:21→16:32)
[2021-07-29] MEDS: NICOTINE 10 MG CARTRIDGE (INHALER) IH PRN (07:23)
[2021-07-29] MEDS: TAMSULOSIN HCL 0.4 MG CAP PO SCH (07:32)
[2021-07-29] MEDS: PANTOPRAZOLE 40 MG TABLET PO SCH (10:20)
[2021-07-29] MEDS: FUROSEMIDE 40 MG TABLET (FP) PO SCH ×2 (10:20→21:18)
[2021-07-29] MEDS: GABAPENTIN 300 MG CAPSULE PO SCH ×2 (10:21→21:18)
[2021-07-29] MEDS: NICOTINE 14 MG/24 HOURS TOPICAL PATCH TD SCH (10:21)
[2021-07-29] MEDS: PRENATAL VITAMINS W/ FOLIC ACID TABLET (FP) PO SCH (10:21)
[2021-07-29] MEDS: MELATONIN 5 MG TABLETS PO SCH (21:18)
[2021-07-29] MEDS: THIAMINE HCL 100 MG TABLET (FP) PO SCH (21:18)
[2021-07-30] MEDS ORDERED: methaDONE HCL 40 MG DISPERSABLE TABLET ONE (03:17)
[2021-07-30] MEDS ORDERED: methaDONE HCL 10 MG TABLET ONE (03:18)
[2021-07-30] MEDS: hydrOXYzine PAMOATE 25 MG CAPSULE (FP) PO SCH ×5 (06:43→21:11)
[2021-07-30] MEDS: methaDONE 40 MG, methaDONE 30 MG PO SCH (06:43)
[2021-07-30] MEDS: metFORMIN HCL 500 MG TABLET (FP) PO SCH ×2 (06:44→16:30)
[2021-07-30] MEDS: INSULIN SLIDING SCALE (NOVOLOG) 1 VIAL SQ SCH ×2 (06:45→16:31)
[2021-07-30] MEDS: NICOTINE 10 MG CARTRIDGE (INHALER) IH PRN (06:46)
[2021-07-30] MEDS: TAMSULOSIN HCL 0.4 MG CAP PO SCH (07:31)
[2021-07-30] MEDS: PRENATAL VITAMINS W/ FOLIC ACID TABLET (FP) PO SCH (10:05)
[2021-07-30] MEDS: FUROSEMIDE 40 MG TABLET (FP) PO SCH ×2 (10:06→21:11)
[2021-07-30] MEDS: GABAPENTIN 300 MG CAPSULE PO SCH ×2 (10:06→21:11)
[2021-07-30] MEDS: PANTOPRAZOLE 40 MG TABLET PO SCH (10:06)
[2021-07-30] MEDS: NICOTINE 14 MG/24 HOURS TOPICAL PATCH TD SCH (10:06)
[2021-07-30] MEDS: THIAMINE HCL 100 MG TABLET (FP) PO SCH (21:11)
[2021-07-30] MEDS: MELATONIN 5 MG TABLETS PO SCH (21:12)
[2021-07-31] MEDS ORDERED: methaDONE HCL 10 MG TABLET ONE (03:24)
[2021-07-31] MEDS ORDERED: methaDONE HCL 40 MG DISPERSABLE TABLET ONE (03:24)
[2021-07-31] MEDS: methaDONE 40 MG, methaDONE 30 MG PO SCH (06:31)
[2021-07-31] MEDS: hydrOXYzine PAMOATE 25 MG CAPSULE (FP) PO SCH ×5 (06:31→21:28)
[2021-07-31] MEDS: metFORMIN HCL 500 MG TABLET (FP) PO SCH ×2 (06:33→17:13)
[2021-07-31] MEDS: INSULIN SLIDING SCALE (NOVOLOG) 1 VIAL SQ SCH ×2 (06:33→17:14)
[2021-07-31] MEDS: TAMSULOSIN HCL 0.4 MG CAP PO SCH (07:50)
[2021-07-31] MEDS: GABAPENTIN 300 MG CAPSULE PO SCH ×2 (10:20→21:28)
[2021-07-31] MEDS: FUROSEMIDE 40 MG TABLET (FP) PO SCH ×2 (10:20→21:28)
[2021-07-31] MEDS: PRENATAL VITAMINS W/ FOLIC ACID TABLET (FP) PO SCH (10:21)
[2021-07-31] MEDS: PANTOPRAZOLE 40 MG TABLET PO SCH (10:21)
[2021-07-31] MEDS: NICOTINE 14 MG/24 HOURS TOPICAL PATCH TD SCH (10:22)
[2021-07-31] MEDS: NICOTINE 10 MG CARTRIDGE (INHALER) IH PRN (18:17)
[2021-07-31] MEDS: THIAMINE HCL 100 MG TABLET (FP) PO SCH (21:28)
[2021-07-31] MEDS: MELATONIN 5 MG TABLETS PO SCH (21:28)
[2021-08-01] MEDS ORDERED: methaDONE HCL 10 MG TABLET ONE (02:57)
[2021-08-01] MEDS ORDERED: methaDONE HCL 40 MG DISPERSABLE TABLET ONE (02:57)
[2021-08-01] MEDS: metFORMIN HCL 500 MG TABLET (FP) PO SCH ×2 (06:00→16:20)
[2021-08-01] MEDS: hydrOXYzine PAMOATE 25 MG CAPSULE (FP) PO SCH ×5 (06:00→21:07)
[2021-08-01] MEDS: methaDONE 40 MG, methaDONE 30 MG PO SCH (06:00)
[2021-08-01] MEDS: INSULIN SLIDING SCALE (NOVOLOG) 1 VIAL SQ SCH ×2 (06:03→16:21)
[2021-08-01] MEDS: NICOTINE 10 MG CARTRIDGE (INHALER) IH PRN ×2 (06:51→10:16)
[2021-08-01] MEDS: PRENATAL VITAMINS W/ FOLIC ACID TABLET (FP) PO SCH (10:15)
[2021-08-01] MEDS: FUROSEMIDE 40 MG TABLET (FP) PO SCH ×2 (10:16→21:07)
[2021-08-01] MEDS: PANTOPRAZOLE 40 MG TABLET PO SCH (10:16)
[2021-08-01] MEDS: TAMSULOSIN HCL 0.4 MG CAP PO SCH (10:16)
[2021-08-01] MEDS: NICOTINE 14 MG/24 HOURS TOPICAL PATCH TD SCH (10:16)
[2021-08-01] MEDS: GABAPENTIN 300 MG CAPSULE PO SCH ×2 (10:16→21:07)
[2021-08-01] MEDS: THIAMINE HCL 100 MG TABLET (FP) PO SCH (21:07)
[2021-08-01] MEDS: MELATONIN 5 MG TABLETS PO SCH (21:08)
[2021-08-02] MEDS ORDERED: methaDONE HCL 40 MG DISPERSABLE TABLET ONE (04:10)
[2021-08-02] MEDS ORDERED: methaDONE HCL 10 MG TABLET ONE (04:11)
[2021-08-02] MEDS: methaDONE 40 MG, methaDONE 30 MG PO SCH (06:21)
[2021-08-02] MEDS: metFORMIN HCL 500 MG TABLET (FP) PO SCH ×2 (06:22→16:30)
[2021-08-02] MEDS: hydrOXYzine PAMOATE 25 MG CAPSULE (FP) PO SCH ×5 (06:22→21:19)
[2021-08-02] MEDS: INSULIN SLIDING SCALE (NOVOLOG) 1 VIAL SQ SCH ×2 (06:22→16:30)
[2021-08-02 07:01] VITALS: TEMP 98.6
[2021-08-02] MEDS: PANTOPRAZOLE 40 MG TABLET PO SCH (10:45)
[2021-08-02] MEDS: PRENATAL VITAMINS W/ FOLIC ACID TABLET (FP) PO SCH (10:45)
[2021-08-02] MEDS: NICOTINE 10 MG CARTRIDGE (INHALER) IH PRN (10:46)
[2021-08-02] MEDS: TAMSULOSIN HCL 0.4 MG CAP PO SCH (10:46)
[2021-08-02] MEDS: NICOTINE 14 MG/24 HOURS TOPICAL PATCH TD SCH (10:46)
[2021-08-02] MEDS: FUROSEMIDE 40 MG TABLET (FP) PO SCH ×2 (10:46→21:19)
[2021-08-02] MEDS: GABAPENTIN 300 MG CAPSULE PO SCH ×2 (10:46→21:19)
[2021-08-02] MEDS: MELATONIN 5 MG TABLETS PO SCH (21:19)
[2021-08-02] MEDS: THIAMINE HCL 100 MG TABLET (FP) PO SCH (21:19)
[2021-08-03] MEDS ORDERED: methaDONE HCL 40 MG DISPERSABLE TABLET ONE (03:22)
[2021-08-03] MEDS ORDERED: methaDONE HCL 10 MG TABLET ONE (03:22)
[2021-08-03] MEDS: methaDONE 40 MG, methaDONE 30 MG PO SCH (06:08)
[2021-08-03] MEDS: hydrOXYzine PAMOATE 25 MG CAPSULE (FP) PO SCH ×2 (06:08→10:00)
[2021-08-03] MEDS: metFORMIN HCL 500 MG TABLET (FP) PO SCH (07:15)
[2021-08-03] MEDS: INSULIN SLIDING SCALE (NOVOLOG) 1 VIAL SQ SCH (07:24)
[2021-08-03] MEDS: TAMSULOSIN HCL 0.4 MG CAP PO SCH (07:46)
[2021-08-03] MEDS: PANTOPRAZOLE 40 MG TABLET PO SCH (10:00)
[2021-08-03] MEDS: PRENATAL VITAMINS W/ FOLIC ACID TABLET (FP) PO SCH (10:00)
[2021-08-03] MEDS: GABAPENTIN 300 MG CAPSULE PO SCH (10:00)
[2021-08-03] MEDS: NICOTINE 14 MG/24 HOURS TOPICAL PATCH TD SCH (10:00)
[2021-08-03] MEDS: FUROSEMIDE 40 MG TABLET (FP) PO SCH (10:03)
[2021-08-03 11:05] VITALS: BP 131/76; PULSE 76
== END 2021-08-03 10:22 | disposition home or self-care (01) | DRG 772 ==
LOC: YASAS 13:21 → Y3W 13:24
PROVIDERS: ADMIT Allergy & Immunology; ATTEND Allergy & Immunology
PROC: HZ42ZZZ Group Counseling for Substance Abuse Treatment, Cognitive-Behavioral (ICD-10-PCS; principal; 2021-07-24)
DX: F10.20 Alcohol dependence, uncomplicated (principal); F17.210 Nicotine dependence, cigarettes, uncomplicated; I11.0 Hypertensive heart disease with heart failure; I50.9 Heart failure, unspecified; G62.9 Polyneuropathy, unspecified; B18.2 Chronic viral hepatitis C; E11.9 Type 2 diabetes mellitus without complications; Z79.84 Long term (current) use of oral hypoglycemic drugs; Z99.89 Dependence on other enabling machines and devices
CPT/HCPCS: 82962

== ENCOUNTER 2021-09-08 17:37 | Inpatient (IN) | payer OTHER ==
[2021-09-08 18:14] VITALS: BMI 36.1
[2021-09-08] MEDS ORDERED: IBUPROFEN 400 MG TABLET (FP) PO PRN (19:09)
[2021-09-08] MEDS ORDERED: ONDANSETRON *ODT* 4 MG TABLET SL PRN (19:09)
[2021-09-08] MEDS ORDERED: METHOCARBAMOL 500 MG TABLET PO PRN (19:09)
[2021-09-08] MEDS ORDERED: MENTHOL/PHENOL 1 EACH UD MM PRN (19:09)
[2021-09-08] MEDS ORDERED: MAG HYDROX/AL HYDROX/SIMETH 30 ML UNIT-DOSE CUP PO PRN (19:09)
[2021-09-08] MEDS ORDERED: MAGNESIUM CITRATE 300 ML BOTTLE PO PRN (19:09)
[2021-09-08] MEDS ORDERED: MAGNESIUM HYDROX 2400MG/30ML ORAL SUSPENSION 30 ML CUP PO PRN (19:09)
[2021-09-08] MEDS ORDERED: NICOTINE POLACRILEX 2 MG GUM BUC PRN (19:09)
[2021-09-08] MEDS ORDERED: BISMUTH SUBSALICYLATE 524 MG/30 ML PO PRN (19:09)
[2021-09-08] MEDS ORDERED: LACTULOSE 20 GM/30 ML UDC (FOR ORAL USE ONLY) PO PRN (21:19)
[2021-09-08] MEDS: MELATONIN 5 MG TABLETS PO SCH (23:28)
[2021-09-08] MEDS: GABAPENTIN 300 MG CAPSULE PO SCH (23:30)
[2021-09-08] MEDS: THIAMINE HCL 100 MG TABLET (FP) PO SCH (23:30)
[2021-09-09] MEDS: hydrOXYzine PAMOATE 25 MG CAPSULE (FP) PO PRN ×2 (06:30→11:32)
[2021-09-09] MEDS: FUROSEMIDE 40 MG TABLET (FP) PO SCH ×2 (06:31→15:37)
[2021-09-09] MEDS ORDERED: ACETAMINOPHEN 325 MG TABLET (FP) PO PRN (07:09)
[2021-09-09] MEDS: metFORMIN HCL 500 MG TABLET (FP) PO SCH ×2 (07:14→18:29)
[2021-09-09] MEDS ORDERED: LORazepam 1 MG TABLET PO PRN (09:59)
[2021-09-09 10:32] LABS: HEMATOCRIT 35.6 % (35.4-49); MCHC 33.8 g/dl (32.0-35.9); MEAN CELL VOLUME 103.6 fl (80-96); MEAN PLT VOLUME 9.8 fl (7.5-11.1); PLATELET COUNT 66 10^3/uL (134-434); RBC 3.44 M/mm3 (4.00-5.60); RDW 16.2 % (11.9-15.9); WHITE BLOOD COUNT 2.1 K/mm3 (4.0-10.0)
[2021-09-09 10:39] LABS: CHLORIDE 99 mmol/L (98-107); SODIUM 140 mmol/L (136-145)
[2021-09-09 10:42] LABS: CALCIUM 7.5 mg/dL (8.5-10.1); CO2 33 mmol/L (21-32); GLUCOSE,RANDOM 58 mg/dL (74-106)
[2021-09-09 10:43] LABS: ALBUMIN 2.8 g/dl (3.4-5.0); BLOOD UREA NITROGEN 6.3 mg/dL (7-18)
[2021-09-09 10:45] LABS: SGPT/ALT 41 U/L (13-61)
[2021-09-09 10:46] LABS: CREATININE 0.9 mg/dL (0.55-1.3); SGOT/AST 124 U/L (15-37)
[2021-09-09 10:47] LABS: BILIRUBIN,TOTAL 1.7 mg/dL (0.2-1); TOT PROT 7.9 g/dl (6.4-8.2)
[2021-09-09 10:48] LABS: ALK PHOS 103 U/L (45-117)
[2021-09-09 10:52] LABS: ANION GAP 9 MMOL/L (8-16)
[2021-09-09] MEDS ORDERED: POTASSIUM CHLORIDE TABS 20 MEQ TABLET.ER (FP) PO ONE ×2 (11:15→17:00)
[2021-09-09] MEDS: LORazepam 1 MG TABLET PO SCH ×3 (11:25→23:28)
[2021-09-09] MEDS: PRENATAL VITAMINS W/ FOLIC ACID TABLET (FP) PO SCH (11:26)
[2021-09-09] MEDS: PANTOPRAZOLE 40 MG TABLET PO SCH (11:26)
[2021-09-09] MEDS: TAMSULOSIN HCL 0.4 MG CAP PO SCH (11:26)
[2021-09-09] MEDS: GABAPENTIN 300 MG CAPSULE PO SCH ×2 (11:26→23:28)
[2021-09-09] MEDS: MELATONIN 5 MG TABLETS PO SCH (23:28)
[2021-09-09] MEDS: THIAMINE HCL 100 MG TABLET (FP) PO SCH (23:28)
[2021-09-10] MEDS: LORazepam 0.5 MG TABLET PO SCH ×4 (06:11→23:29)
[2021-09-10] MEDS: FUROSEMIDE 40 MG TABLET (FP) PO SCH ×2 (06:11→14:30)
[2021-09-10] MEDS: metFORMIN HCL 500 MG TABLET (FP) PO SCH ×2 (06:29→19:12)
[2021-09-10] MEDS: PRENATAL VITAMINS W/ FOLIC ACID TABLET (FP) PO SCH (11:00)
[2021-09-10] MEDS: PANTOPRAZOLE 40 MG TABLET PO SCH (11:00)
[2021-09-10] MEDS: TAMSULOSIN HCL 0.4 MG CAP PO SCH (11:00)
[2021-09-10] MEDS: GABAPENTIN 300 MG CAPSULE PO SCH ×2 (11:00→23:29)
[2021-09-10] MEDS: hydrOXYzine PAMOATE 25 MG CAPSULE (FP) PO PRN ×2 (19:09→23:29)
[2021-09-10] MEDS: MELATONIN 5 MG TABLETS PO SCH (23:29)
[2021-09-10] MEDS: THIAMINE HCL 100 MG TABLET (FP) PO SCH (23:29)
[2021-09-11] MEDS: NADOLOL 20 MG TABLET (FP) PO SCH ×2 (01:00→09:46)
[2021-09-11] MEDS ORDERED: LORazepam 0.5 MG TABLET PO ONE (05:00)
[2021-09-11] MEDS: FUROSEMIDE 40 MG TABLET (FP) PO SCH ×2 (06:43→13:53)
[2021-09-11] MEDS: metFORMIN HCL 500 MG TABLET (FP) PO SCH ×2 (07:06→17:00)
[2021-09-11] MEDS ORDERED: methaDONE HCL 40 MG DISPERSABLE TABLET ONE (09:16)
[2021-09-11] MEDS ORDERED: methaDONE HCL 10 MG TABLET ONE (09:16)
[2021-09-11] MEDS: GABAPENTIN 300 MG CAPSULE PO SCH ×2 (09:45→22:27)
[2021-09-11] MEDS: PANTOPRAZOLE 40 MG TABLET PO SCH (09:45)
[2021-09-11] MEDS: TAMSULOSIN HCL 0.4 MG CAP PO SCH (09:45)
[2021-09-11] MEDS: PRENATAL VITAMINS W/ FOLIC ACID TABLET (FP) PO SCH (09:46)
[2021-09-11] MEDS ORDERED: methaDONE HCL 10 MG TABLET PO ONE (10:00)
[2021-09-11] MEDS ORDERED: methaDONE 40 MG, methaDONE 30 MG PO ONE (10:00)
[2021-09-11] MEDS ORDERED: POTASSIUM CHLORIDE ORAL LIQUID 20 MEQ/15 ML PO ONE ×2 (13:30→17:30)
[2021-09-11] MEDS: THIAMINE HCL 100 MG TABLET (FP) PO SCH (22:27)
[2021-09-11] MEDS: MELATONIN 5 MG TABLETS PO SCH (22:28)
[2021-09-12] MEDS ORDERED: LORazepam 0.5 MG TABLET PO PRN
[2021-09-12] MEDS ORDERED: methaDONE HCL 10 MG TABLET ONE (04:12)
[2021-09-12] MEDS ORDERED: methaDONE HCL 40 MG DISPERSABLE TABLET ONE (04:13)
[2021-09-12] MEDS ORDERED: methaDONE 40 MG, methaDONE 30 MG PO SCH (06:00)
[2021-09-12] MEDS ORDERED: methaDONE HCL 10 MG TABLET PO SCH (06:00)
[2021-09-12] MEDS: FUROSEMIDE 40 MG TABLET (FP) PO SCH (06:23)
[2021-09-12] MEDS: metFORMIN HCL 500 MG TABLET (FP) PO SCH (07:15)
[2021-09-12 09:21] VITALS: BP 129/67; PULSE 80; TEMP 98.2
[2021-09-12] MEDS: NADOLOL 20 MG TABLET (FP) PO SCH (09:35)
[2021-09-12] MEDS: TAMSULOSIN HCL 0.4 MG CAP PO SCH (09:36)
[2021-09-12] MEDS: PRENATAL VITAMINS W/ FOLIC ACID TABLET (FP) PO SCH (09:36)
[2021-09-12] MEDS: PANTOPRAZOLE 40 MG TABLET PO SCH (09:36)
[2021-09-12] MEDS: GABAPENTIN 300 MG CAPSULE PO SCH (09:36)
[2021-09-12 10:13] LABS: ALBUMIN 2.6 g/dl (3.4-5.0)
[2021-09-12 10:16] LABS: BILIRUBIN,DIRECT 0.9 mg/dL (0.0-0.2)
[2021-09-12 10:20] LABS: BILIRUBIN,TOTAL 1.5 mg/dL (0.2-1); TOT PROT 7.7 g/dl (6.4-8.2)
== END 2021-09-12 11:18 | disposition home or self-care (01) | DRG 773 ==
LOC: YASAS 17:37 → Y6N 20:23
PROVIDERS: ADMIT Allergy & Immunology; ATTEND Allergy & Immunology
PROC: HZ2ZZZZ Detoxification Services for Substance Abuse Treatment (ICD-10-PCS; principal; 2021-09-08)
DX: F10.230 Alcohol dependence with withdrawal, uncomplicated (principal); F10.220 Alcohol dependence with intoxication, uncomplicated; F11.20 Opioid dependence, uncomplicated; F17.210 Nicotine dependence, cigarettes, uncomplicated; I11.0 Hypertensive heart disease with heart failure; I50.9 Heart failure, unspecified; E16.2 Hypoglycemia, unspecified; E11.9 Type 2 diabetes mellitus without complications; U07.1 COVID-19; B18.2 Chronic viral hepatitis C; N40.0 Benign prostatic hyperplasia without lower urinary tract symptoms; G62.9 Polyneuropathy, unspecified; D64.9 Anemia, unspecified; E87.6 Hypokalemia; Z99.89 Dependence on other enabling machines and devices; Z79.4 Long term (current) use of insulin; Z91.011 Allergy to milk products; Z56.0 Unemployment, unspecified
CPT/HCPCS: 36415; 80053; 80076; 82962; 84132; 85027; 86780; 93005; 93010; C9803; U0003; U0005

== ENCOUNTER 2021-10-09 11:23 | Inpatient (IN) | payer OTHER ==
[2021-10-09] MEDS ORDERED: LORazepam 1 MG TABLET PO PRN (12:09)
[2021-10-09] MEDS ORDERED: MAGNESIUM CITRATE 300 ML BOTTLE PO PRN (12:09)
[2021-10-09] MEDS ORDERED: IBUPROFEN 400 MG TABLET (FP) PO PRN (12:09)
[2021-10-09] MEDS ORDERED: ACETAMINOPHEN 325 MG TABLET (FP) PO PRN ×2 (12:09)
[2021-10-09] MEDS ORDERED: MAGNESIUM HYDROX 2400MG/30ML ORAL SUSPENSION 30 ML CUP PO PRN (12:09)
[2021-10-09] MEDS ORDERED: MENTHOL/PHENOL 1 EACH UD MM PRN (12:09)
[2021-10-09] MEDS ORDERED: BISMUTH SUBSALICYLATE 524 MG/30 ML PO PRN (12:09)
[2021-10-09] MEDS ORDERED: ONDANSETRON *ODT* 4 MG TABLET SL PRN (12:09)
[2021-10-09] MEDS ORDERED: MAG HYDROX/AL HYDROX/SIMETH 30 ML UNIT-DOSE CUP PO PRN (12:09)
[2021-10-09 12:36] VITALS: BMI 36.1
[2021-10-09] MEDS: hydrOXYzine PAMOATE 25 MG CAPSULE (FP) PO SCH ×3 (14:48→22:24)
[2021-10-09] MEDS: LORazepam 2 MG TABLET PO SCH ×3 (14:48→22:22)
[2021-10-09] MEDS: METHOCARBAMOL 500 MG TABLET PO PRN (14:48)
[2021-10-09] MEDS: PRENATAL VITAMINS W/ FOLIC ACID TABLET (FP) PO SCH (14:51)
[2021-10-09 16:14] LABS: CALCIUM 8.1 mg/dL (8.5-10.1)
[2021-10-09 16:15] LABS: ALBUMIN 3.4 g/dl (3.4-5.0); BLOOD UREA NITROGEN 3.7 mg/dL (7-18)
[2021-10-09 16:18] LABS: CREATININE 0.8 mg/dL (0.55-1.3)
[2021-10-09 16:20] LABS: BILIRUBIN,TOTAL 1.4 mg/dL (0.2-1); TOT PROT 9.3 g/dl (6.4-8.2)
[2021-10-09 16:21] LABS: HEMATOCRIT 38.1 % (35.4-49); HEMOGLOBIN 12.6 GM/dL (11.7-16.9); MCH 35.5 pg (25.7-33.7); MCHC 33.2 g/dl (32.0-35.9); MEAN CELL VOLUME 106.9 fl (80-96); MEAN PLT VOLUME 9.6 fl (7.5-11.1); PLATELET COUNT 66 10^3/uL (134-434); RBC 3.56 M/mm3 (4.00-5.60); RDW 15.9 % (11.9-15.9); WHITE BLOOD COUNT 3.6 K/mm3 (4.0-10.0)
[2021-10-09] MEDS: MELATONIN 5 MG TABLETS PO SCH (22:22)
[2021-10-09] MEDS: THIAMINE HCL 100 MG TABLET (FP) PO SCH (22:22)
[2021-10-10] MEDS: METHOCARBAMOL 500 MG TABLET PO PRN ×2 (03:43→10:10)
[2021-10-10] MEDS: hydrOXYzine PAMOATE 25 MG CAPSULE (FP) PO SCH ×5 (05:32→22:30)
[2021-10-10] MEDS: LORazepam 2 MG TABLET PO SCH ×4 (05:32→22:29)
[2021-10-10] MEDS ORDERED: methaDONE HCL 10 MG TABLET ONE (06:32)
[2021-10-10] MEDS ORDERED: methaDONE HCL 40 MG DISPERSABLE TABLET ONE (06:33)
[2021-10-10] MEDS: methaDONE 40 MG, methaDONE 30 MG PO SCH (06:35)
[2021-10-10] MEDS: PRENATAL VITAMINS W/ FOLIC ACID TABLET (FP) PO SCH (10:10)
[2021-10-10] MEDS: NADOLOL 20 MG TABLET (FP) PO SCH (10:10)
[2021-10-10] MEDS: HYDROCHLOROTHIAZIDE 25 MG TABLET (FP) PO SCH (14:01)
[2021-10-10] MEDS: THIAMINE HCL 100 MG TABLET (FP) PO SCH (22:30)
[2021-10-10] MEDS: MELATONIN 5 MG TABLETS PO SCH (22:31)
[2021-10-11] MEDS ORDERED: methaDONE HCL 10 MG TABLET ONE (04:06)
[2021-10-11] MEDS ORDERED: methaDONE HCL 40 MG DISPERSABLE TABLET ONE (04:06)
[2021-10-11] MEDS: hydrOXYzine PAMOATE 25 MG CAPSULE (FP) PO SCH ×5 (05:10→22:22)
[2021-10-11] MEDS: LORazepam 1 MG TABLET PO SCH ×4 (05:10→22:23)
[2021-10-11] MEDS: methaDONE 40 MG, methaDONE 30 MG PO SCH (05:11)
[2021-10-11] MEDS: METHOCARBAMOL 500 MG TABLET PO PRN ×2 (05:11→10:07)
[2021-10-11] MEDS: NADOLOL 20 MG TABLET (FP) PO SCH (10:07)
[2021-10-11] MEDS: PRENATAL VITAMINS W/ FOLIC ACID TABLET (FP) PO SCH (10:07)
[2021-10-11] MEDS: HYDROCHLOROTHIAZIDE 25 MG TABLET (FP) PO SCH (10:07)
[2021-10-11] MEDS: MELATONIN 5 MG TABLETS PO SCH (22:22)
[2021-10-11] MEDS: THIAMINE HCL 100 MG TABLET (FP) PO SCH (22:22)
[2021-10-12] MEDS ORDERED: LORazepam 0.5 MG TABLET PO PRN
[2021-10-12] MEDS ORDERED: methaDONE HCL 40 MG DISPERSABLE TABLET ONE (04:05)
[2021-10-12] MEDS ORDERED: methaDONE HCL 10 MG TABLET ONE (04:05)
[2021-10-12] MEDS: LORazepam 0.5 MG TABLET PO SCH ×4 (05:27→22:06)
[2021-10-12] MEDS: methaDONE 40 MG, methaDONE 30 MG PO SCH (05:27)
[2021-10-12] MEDS: hydrOXYzine PAMOATE 25 MG CAPSULE (FP) PO SCH ×5 (05:27→21:54)
[2021-10-12 10:42] LABS: ALBUMIN 3.1 g/dl (3.4-5.0)
[2021-10-12 10:46] LABS: CREATININE 1.1 mg/dL (0.55-1.3)
[2021-10-12] MEDS: HYDROCHLOROTHIAZIDE 25 MG TABLET (FP) PO SCH (10:46)
[2021-10-12 10:47] LABS: BILIRUBIN,TOTAL 2.1 mg/dL (0.2-1); TOT PROT 8.9 g/dl (6.4-8.2)
[2021-10-12] MEDS: NADOLOL 20 MG TABLET (FP) PO SCH (10:47)
[2021-10-12] MEDS: PRENATAL VITAMINS W/ FOLIC ACID TABLET (FP) PO SCH (10:47)
[2021-10-12 10:48] LABS: CALCIUM 9.6 mg/dL (8.5-10.1)
[2021-10-12] MEDS: MELATONIN 5 MG TABLETS PO SCH (21:54)
[2021-10-12] MEDS: THIAMINE HCL 100 MG TABLET (FP) PO SCH (21:54)
[2021-10-13] MEDS ORDERED: methaDONE HCL 40 MG DISPERSABLE TABLET ONE (04:15)
[2021-10-13] MEDS ORDERED: methaDONE HCL 10 MG TABLET ONE (04:15)
[2021-10-13] MEDS ORDERED: LORazepam 0.5 MG TABLET PO ONE (05:00)
[2021-10-13] MEDS: hydrOXYzine PAMOATE 25 MG CAPSULE (FP) PO SCH (05:19)
[2021-10-13] MEDS: methaDONE 40 MG, methaDONE 30 MG PO SCH (05:19)
[2021-10-13 09:41] VITALS: BP 122/78; PULSE 84; TEMP 97.8
[2021-10-13] MEDS ORDERED: HYDROCHLOROTHIAZIDE 25 MG TABLET (FP) PO SCH (10:00)
== END 2021-10-13 09:07 | disposition home or self-care (01) | DRG 773 ==
LOC: YASAS 11:23 → Y6N 13:41
PROVIDERS: ADMIT Allergy & Immunology; ATTEND Allergy & Immunology
PROC: HZ2ZZZZ Detoxification Services for Substance Abuse Treatment (ICD-10-PCS; principal; 2021-10-09)
DX: F10.230 Alcohol dependence with withdrawal, uncomplicated (principal); F11.20 Opioid dependence, uncomplicated; F17.210 Nicotine dependence, cigarettes, uncomplicated; G62.9 Polyneuropathy, unspecified; I10 Essential (primary) hypertension; E11.9 Type 2 diabetes mellitus without complications; Z79.4 Long term (current) use of insulin; K21.9 Gastro-esophageal reflux disease without esophagitis; K76.0 Fatty (change of) liver, not elsewhere classified; B18.2 Chronic viral hepatitis C; N40.0 Benign prostatic hyperplasia without lower urinary tract symptoms; R74.01 Elevation of levels of liver transaminase levels; E66.9 Obesity, unspecified; Z68.36 Body mass index [BMI] 36.0-36.9, adult; Z86.16 Personal history of COVID-19; Z86.69 Personal history of other diseases of the nervous system and sense organs; Z99.89 Dependence on other enabling machines and devices; Z91.011 Allergy to milk products
CPT/HCPCS: 36415; 80053; 85027; 86780; C9803; Q0162; U0003; U0005

== ENCOUNTER 2021-10-25 14:27 | Inpatient (IN) | payer OTHER ==
[2021-10-25 15:48] VITALS: BMI 35.9
[2021-10-25] MEDS ORDERED: MAGNESIUM CITRATE 300 ML BOTTLE PO PRN (18:12)
[2021-10-25] MEDS ORDERED: chlordiazePOXIDE HCL 25 MG CAPSULE PO PRN (18:12)
[2021-10-25] MEDS ORDERED: BISMUTH SUBSALICYLATE 524 MG/30 ML PO PRN (18:12)
[2021-10-25] MEDS ORDERED: ACETAMINOPHEN 325 MG TABLET (FP) PO PRN (18:12)
[2021-10-25] MEDS ORDERED: NICOTINE 10 MG CARTRIDGE (INHALER) IH PRN (18:12)
[2021-10-25] MEDS ORDERED: ONDANSETRON *ODT* 4 MG TABLET SL PRN (18:12)
[2021-10-25] MEDS ORDERED: MAG HYDROX/AL HYDROX/SIMETH 30 ML UNIT-DOSE CUP PO PRN (18:12)
[2021-10-25] MEDS ORDERED: MAGNESIUM HYDROX 2400MG/30ML ORAL SUSPENSION 30 ML CUP PO PRN (18:12)
[2021-10-25] MEDS ORDERED: MENTHOL/PHENOL 1 EACH UD MM PRN (18:12)
[2021-10-25] MEDS: hydrOXYzine PAMOATE 25 MG CAPSULE (FP) PO SCH (22:48)
[2021-10-25] MEDS: MELATONIN 5 MG TABLETS PO SCH (22:48)
[2021-10-25] MEDS: THIAMINE HCL 100 MG TABLET (FP) PO SCH (22:49)
[2021-10-25] MEDS: chlordiazePOXIDE HCL 25 MG CAPSULE PO SCH (22:49)
[2021-10-25] MEDS: METHOCARBAMOL 500 MG TABLET PO PRN (22:53)
[2021-10-26] MEDS: ACETAMINOPHEN 325 MG TABLET (FP) PO PRN ×2 (03:02→13:37)
[2021-10-26] MEDS: chlordiazePOXIDE HCL 25 MG CAPSULE PO SCH ×4 (06:56→22:20)
[2021-10-26] MEDS: hydrOXYzine PAMOATE 25 MG CAPSULE (FP) PO SCH ×5 (06:57→22:20)
[2021-10-26] MEDS: METHOCARBAMOL 500 MG TABLET PO PRN ×3 (06:58→17:40)
[2021-10-26] MEDS: HYDROCHLOROTHIAZIDE 25 MG TABLET (FP) PO SCH (10:37)
[2021-10-26] MEDS: PRENATAL VITAMINS W/ FOLIC ACID TABLET (FP) PO SCH (10:38)
[2021-10-26 13:45] LABS: HEMATOCRIT 36.7 % (35.4-49); HEMOGLOBIN 12.2 GM/dL (11.7-16.9); MCH 35.3 pg (25.7-33.7); MCHC 33.2 g/dl (32.0-35.9); MEAN CELL VOLUME 106.2 fl (80-96); MEAN PLT VOLUME 10.6 fl (7.5-11.1); PLATELET COUNT 95 10^3/uL (134-434); RBC 3.46 M/mm3 (4.00-5.60); RDW 15.4 % (11.9-15.9); WHITE BLOOD COUNT 3.7 K/mm3 (4.0-10.0)
[2021-10-26 14:03] LABS: CALCIUM 8.3 mg/dL (8.5-10.1)
[2021-10-26 14:04] LABS: BLOOD UREA NITROGEN 8.1 mg/dL (7-18)
[2021-10-26 14:06] LABS: CREATININE 0.8 mg/dL (0.55-1.3)
[2021-10-26 14:08] LABS: BILIRUBIN,TOTAL 1.3 mg/dL (0.2-1); TOT PROT 8.1 g/dl (6.4-8.2)
[2021-10-26] MEDS: NADOLOL 20 MG TABLET (FP) PO SCH (14:12)
[2021-10-26] MEDS ORDERED: methaDONE HCL 10 MG TABLET PO ONE (15:01)
[2021-10-26] MEDS ORDERED: methaDONE 40 MG, methaDONE 30 MG PO ONE (15:05)
[2021-10-26] MEDS ORDERED: methaDONE HCL 10 MG TABLET ONE (15:46)
[2021-10-26] MEDS ORDERED: methaDONE HCL 40 MG DISPERSABLE TABLET ONE (15:46)
[2021-10-26] MEDS: THIAMINE HCL 100 MG TABLET (FP) PO SCH (22:20)
[2021-10-26] MEDS: MELATONIN 5 MG TABLETS PO SCH (22:20)
[2021-10-26] MEDS: IBUPROFEN 400 MG TABLET (FP) PO PRN (22:22)
[2021-10-27] MEDS ORDERED: methaDONE HCL 10 MG TABLET ONE (04:21)
[2021-10-27] MEDS ORDERED: methaDONE HCL 40 MG DISPERSABLE TABLET ONE (04:21)
[2021-10-27] MEDS ORDERED: methaDONE HCL 10 MG TABLET PO SCH (06:00)
[2021-10-27] MEDS: hydrOXYzine PAMOATE 25 MG CAPSULE (FP) PO SCH ×5 (06:20→22:01)
[2021-10-27] MEDS: chlordiazePOXIDE HCL 25 MG CAPSULE PO SCH ×4 (06:20→22:01)
[2021-10-27] MEDS: methaDONE 40 MG, methaDONE 30 MG PO SCH (06:20)
[2021-10-27] MEDS: METHOCARBAMOL 500 MG TABLET PO PRN ×2 (10:24→17:19)
[2021-10-27] MEDS: NADOLOL 20 MG TABLET (FP) PO SCH (10:24)
[2021-10-27] MEDS: PRENATAL VITAMINS W/ FOLIC ACID TABLET (FP) PO SCH (10:24)
[2021-10-27] MEDS: HYDROCHLOROTHIAZIDE 25 MG TABLET (FP) PO SCH (10:24)
[2021-10-27] MEDS: IBUPROFEN 400 MG TABLET (FP) PO PRN (10:25)
[2021-10-27 11:06] LABS: BILIRUBIN,TOTAL 1.7 mg/dL (0.2-1); TOT PROT 8.6 g/dl (6.4-8.2)
[2021-10-27] MEDS: THIAMINE HCL 100 MG TABLET (FP) PO SCH (22:01)
[2021-10-27] MEDS: MELATONIN 5 MG TABLETS PO SCH (22:01)
[2021-10-28] MEDS ORDERED: chlordiazePOXIDE HCL 10 MG CAPSULE PO PRN
[2021-10-28] MEDS ORDERED: methaDONE HCL 10 MG TABLET ONE (04:35)
[2021-10-28] MEDS ORDERED: methaDONE HCL 40 MG DISPERSABLE TABLET ONE (04:36)
[2021-10-28] MEDS: hydrOXYzine PAMOATE 25 MG CAPSULE (FP) PO SCH ×5 (06:08→22:21)
[2021-10-28] MEDS: methaDONE 40 MG, methaDONE 30 MG PO SCH (06:08)
[2021-10-28] MEDS: chlordiazePOXIDE HCL 10 MG CAPSULE PO SCH ×4 (06:08→22:21)
[2021-10-28] MEDS: METHOCARBAMOL 500 MG TABLET PO PRN (06:11)
[2021-10-28 10:21] LABS: ALBUMIN 3.1 g/dl (3.4-5.0); BLOOD UREA NITROGEN 15.6 mg/dL (7-18)
[2021-10-28 10:22] LABS: CALCIUM 9.1 mg/dL (8.5-10.1)
[2021-10-28] MEDS: NADOLOL 20 MG TABLET (FP) PO SCH (10:23)
[2021-10-28] MEDS: PRENATAL VITAMINS W/ FOLIC ACID TABLET (FP) PO SCH (10:23)
[2021-10-28] MEDS: HYDROCHLOROTHIAZIDE 25 MG TABLET (FP) PO SCH (10:24)
[2021-10-28 10:26] LABS: TOT PROT 8.6 g/dl (6.4-8.2)
[2021-10-28 10:29] LABS: BILIRUBIN,TOTAL 1.6 mg/dL (0.2-1)
[2021-10-28] MEDS: THIAMINE HCL 100 MG TABLET (FP) PO SCH (22:21)
[2021-10-28] MEDS: MELATONIN 5 MG TABLETS PO SCH (22:22)
[2021-10-29] MEDS ORDERED: methaDONE HCL 10 MG TABLET ONE (04:21)
[2021-10-29] MEDS ORDERED: methaDONE HCL 40 MG DISPERSABLE TABLET ONE (04:22)
[2021-10-29] MEDS: methaDONE 40 MG, methaDONE 30 MG PO SCH (05:53)
[2021-10-29] MEDS: chlordiazePOXIDE HCL 10 MG CAPSULE PO SCH ×2 (05:53→18:19)
[2021-10-29] MEDS: hydrOXYzine PAMOATE 25 MG CAPSULE (FP) PO SCH ×5 (05:54→21:59)
[2021-10-29] MEDS: PRENATAL VITAMINS W/ FOLIC ACID TABLET (FP) PO SCH (10:36)
[2021-10-29] MEDS: NADOLOL 20 MG TABLET (FP) PO SCH (10:37)
[2021-10-29] MEDS: HYDROCHLOROTHIAZIDE 25 MG TABLET (FP) PO SCH (10:37)
[2021-10-29] MEDS: METHOCARBAMOL 500 MG TABLET PO PRN (10:37)
[2021-10-29 14:07] LABS: SARS-CoV-2 NAA Not Detected (Not Detected)
[2021-10-29] MEDS: MELATONIN 5 MG TABLETS PO SCH (21:59)
[2021-10-29] MEDS: THIAMINE HCL 100 MG TABLET (FP) PO SCH (21:59)
[2021-10-29] MEDS: IBUPROFEN 400 MG TABLET (FP) PO PRN (22:02)
[2021-10-30] MEDS ORDERED: methaDONE HCL 40 MG DISPERSABLE TABLET ONE (04:15)
[2021-10-30] MEDS ORDERED: methaDONE HCL 10 MG TABLET ONE (04:15)
[2021-10-30] MEDS ORDERED: chlordiazePOXIDE HCL 10 MG CAPSULE PO ONE (05:00)
[2021-10-30] MEDS: methaDONE 40 MG, methaDONE 30 MG PO SCH (05:45)
[2021-10-30] MEDS: hydrOXYzine PAMOATE 25 MG CAPSULE (FP) PO SCH ×2 (05:46→10:59)
[2021-10-30 09:12] VITALS: BP 128/66; PULSE 77; TEMP 98.3
[2021-10-30] MEDS: PRENATAL VITAMINS W/ FOLIC ACID TABLET (FP) PO SCH (10:59)
[2021-10-30] MEDS: METHOCARBAMOL 500 MG TABLET PO PRN (11:00)
[2021-10-30] MEDS: HYDROCHLOROTHIAZIDE 25 MG TABLET (FP) PO SCH (11:00)
[2021-10-30] MEDS: NADOLOL 20 MG TABLET (FP) PO SCH (11:00)
== END 2021-10-30 11:37 | disposition home or self-care (01) | DRG 773 ==
LOC: YASAS 14:27 → Y6N 21:21
PROVIDERS: ADMIT Allergy & Immunology; ATTEND Allergy & Immunology
PROC: HZ2ZZZZ Detoxification Services for Substance Abuse Treatment (ICD-10-PCS; principal; 2021-10-25)
DX: F10.230 Alcohol dependence with withdrawal, uncomplicated (principal); F11.20 Opioid dependence, uncomplicated; F17.210 Nicotine dependence, cigarettes, uncomplicated; F20.9 Schizophrenia, unspecified; U07.1 COVID-19; G62.9 Polyneuropathy, unspecified; I10 Essential (primary) hypertension; E11.9 Type 2 diabetes mellitus without complications; Z79.4 Long term (current) use of insulin; N40.0 Benign prostatic hyperplasia without lower urinary tract symptoms; B18.2 Chronic viral hepatitis C; R74.01 Elevation of levels of liver transaminase levels; R73.9 Hyperglycemia, unspecified; R74.8 Abnormal levels of other serum enzymes; R26.89 Other abnormalities of gait and mobility; Z99.89 Dependence on other enabling machines and devices; Z86.19 Personal history of other infectious and parasitic diseases; Z86.79 Personal history of other diseases of the circulatory system
CPT/HCPCS: 36415; 80053; 80076; 82947; 85027; 86769; 86780; C9803; U0003; U0005

== ENCOUNTER 2021-10-31 15:22 | Inpatient (IN) | payer OTHER ==
[2021-10-31] MEDS ORDERED: P-EPHED 60MG/TRIPROLIDI 2.5MG TABLET PO PRN (18:03)
[2021-10-31] MEDS ORDERED: ACETAMINOPHEN 325 MG TABLET (FP) PO PRN (18:03)
[2021-10-31] MEDS ORDERED: MAG HYDROX/AL HYDROX/SIMETH 30 ML UNIT-DOSE CUP PO PRN (18:03)
[2021-10-31] MEDS ORDERED: MAGNESIUM HYDROX 2400MG/30ML ORAL SUSPENSION 30 ML CUP PO PRN (18:03)
[2021-10-31] MEDS ORDERED: guaiFENesin 200 MG/10 ML 10 ML UNIT-DOSE CUPS PO PRN (18:03)
[2021-10-31] MEDS ORDERED: MENTHOL/PHENOL 1 EACH UD MM PRN (18:03)
[2021-10-31] MEDS ORDERED: LOPERAMIDE HCL 2 MG CAPSULE PO PRN (18:03)
[2021-10-31] MEDS ORDERED: MAGNESIUM CITRATE 300 ML BOTTLE PO PRN (18:03)
[2021-10-31] MEDS ORDERED: IBUPROFEN 400 MG TABLET (FP) PO PRN (18:03)
[2021-10-31 18:32] VITALS: BMI 37.3
[2021-11-01] MEDS: THIAMINE HCL 100 MG TABLET (FP) PO SCH ×2 (00:29→21:15)
[2021-11-01] MEDS: MELATONIN 5 MG TABLETS PO PRN ×2 (00:29→21:15)
[2021-11-01] MEDS ORDERED: methaDONE HCL 10 MG TABLET PO ONE (08:45)
[2021-11-01] MEDS ORDERED: methaDONE 40 MG, methaDONE 30 MG PO ONE (08:55)
[2021-11-01] MEDS ORDERED: methaDONE HCL 10 MG TABLET ONE (09:01)
[2021-11-01] MEDS ORDERED: methaDONE HCL 40 MG DISPERSABLE TABLET ONE (09:02)
[2021-11-01] MEDS: PRENATAL VITAMINS W/ FOLIC ACID TABLET (FP) PO SCH (09:26)
[2021-11-01] MEDS ORDERED: HYDROCHLOROTHIAZIDE 25 MG TABLET (FP) PO SCH (10:00)
[2021-11-01] MEDS: NADOLOL 20 MG TABLET (FP) PO SCH (10:16)
[2021-11-01] MEDS: hydrOXYzine PAMOATE 25 MG CAPSULE (FP) PO PRN (21:16)
[2021-11-02] MEDS ORDERED: methaDONE HCL 10 MG TABLET ONE (04:44)
[2021-11-02] MEDS ORDERED: methaDONE HCL 40 MG DISPERSABLE TABLET ONE (04:45)
[2021-11-02] MEDS: methaDONE 40 MG, methaDONE 30 MG PO SCH (05:51)
[2021-11-02] MEDS ORDERED: methaDONE HCL 10 MG TABLET PO SCH (06:00)
[2021-11-02] MEDS: PRENATAL VITAMINS W/ FOLIC ACID TABLET (FP) PO SCH (09:58)
[2021-11-02] MEDS: LIDOCAINE 5% TOPICAL PATCH TP SCH (09:58)
[2021-11-02] MEDS: HYDROCHLOROTHIAZIDE 25 MG TABLET (FP) PO SCH (10:57)
[2021-11-02] MEDS: NADOLOL 20 MG TABLET (FP) PO SCH (10:57)
[2021-11-02] MEDS: ALBUTEROL SO4 HFA INHALER IH PRN (13:26)
[2021-11-02] MEDS: THIAMINE HCL 100 MG TABLET (FP) PO SCH (21:07)
[2021-11-02] MEDS: MELATONIN 5 MG TABLETS PO PRN (21:07)
[2021-11-02] MEDS: LIDOCAINE PATCH REMOVAL MC SCH (21:55)
[2021-11-03] MEDS ORDERED: methaDONE HCL 10 MG TABLET ONE (03:08)
[2021-11-03] MEDS ORDERED: methaDONE HCL 40 MG DISPERSABLE TABLET ONE (03:08)
[2021-11-03] MEDS: methaDONE 40 MG, methaDONE 30 MG PO SCH (05:58)
[2021-11-03] MEDS ORDERED: NICOTINE 10 MG CARTRIDGE (INHALER) IH PRN (09:44)
[2021-11-03] MEDS: HYDROCHLOROTHIAZIDE 25 MG TABLET (FP) PO SCH (10:40)
[2021-11-03] MEDS: PRENATAL VITAMINS W/ FOLIC ACID TABLET (FP) PO SCH (10:40)
[2021-11-03] MEDS: NADOLOL 20 MG TABLET (FP) PO SCH (10:40)
[2021-11-03] MEDS: LIDOCAINE 5% TOPICAL PATCH TP SCH (10:41)
[2021-11-03] MEDS: LACTULOSE 20 GM/30 ML UDC (FOR ORAL USE ONLY) PO SCH ×3 (10:45→21:17)
[2021-11-03] MEDS: MELATONIN 5 MG TABLETS PO PRN (21:16)
[2021-11-03] MEDS: THIAMINE HCL 100 MG TABLET (FP) PO SCH (21:16)
[2021-11-03] MEDS: LIDOCAINE PATCH REMOVAL MC SCH (21:17)
[2021-11-04] MEDS ORDERED: methaDONE HCL 40 MG DISPERSABLE TABLET ONE (04:00)
[2021-11-04] MEDS ORDERED: methaDONE HCL 10 MG TABLET ONE (04:00)
[2021-11-04] MEDS: methaDONE 40 MG, methaDONE 30 MG PO SCH (05:42)
[2021-11-04] MEDS: LACTULOSE 20 GM/30 ML UDC (FOR ORAL USE ONLY) PO SCH ×3 (05:43→21:25)
[2021-11-04] MEDS: HYDROCHLOROTHIAZIDE 25 MG TABLET (FP) PO SCH (09:14)
[2021-11-04] MEDS: NADOLOL 20 MG TABLET (FP) PO SCH (10:05)
[2021-11-04] MEDS: PRENATAL VITAMINS W/ FOLIC ACID TABLET (FP) PO SCH (10:05)
[2021-11-04] MEDS: hydrOXYzine PAMOATE 25 MG CAPSULE (FP) PO PRN ×2 (10:05→21:25)
[2021-11-04] MEDS: LIDOCAINE 5% TOPICAL PATCH TP SCH (10:05)
[2021-11-04 14:08] LABS: SARS-CoV-2 NAA Not Detected (Not Detected)
[2021-11-04] MEDS: MELATONIN 5 MG TABLETS PO PRN (21:24)
[2021-11-04] MEDS: LIDOCAINE PATCH REMOVAL MC SCH (21:24)
[2021-11-04] MEDS: THIAMINE HCL 100 MG TABLET (FP) PO SCH (21:24)
[2021-11-05] MEDS ORDERED: methaDONE HCL 10 MG TABLET ONE (02:57)
[2021-11-05] MEDS ORDERED: methaDONE HCL 40 MG DISPERSABLE TABLET ONE (02:57)
[2021-11-05] MEDS: LACTULOSE 20 GM/30 ML UDC (FOR ORAL USE ONLY) PO SCH ×3 (05:57→21:27)
[2021-11-05] MEDS: methaDONE 40 MG, methaDONE 30 MG PO SCH (05:57)
[2021-11-05] MEDS: PRENATAL VITAMINS W/ FOLIC ACID TABLET (FP) PO SCH (10:02)
[2021-11-05] MEDS: LIDOCAINE 5% TOPICAL PATCH TP SCH (10:02)
[2021-11-05] MEDS: HYDROCHLOROTHIAZIDE 25 MG TABLET (FP) PO SCH (10:02)
[2021-11-05] MEDS: NADOLOL 20 MG TABLET (FP) PO SCH (10:02)
[2021-11-05] MEDS: hydrOXYzine PAMOATE 25 MG CAPSULE (FP) PO PRN (21:27)
[2021-11-05] MEDS: MELATONIN 5 MG TABLETS PO PRN (21:27)
[2021-11-05] MEDS: THIAMINE HCL 100 MG TABLET (FP) PO SCH (21:27)
[2021-11-05] MEDS: LIDOCAINE PATCH REMOVAL MC SCH (21:28)
[2021-11-06] MEDS ORDERED: methaDONE HCL 40 MG DISPERSABLE TABLET ONE (02:49)
[2021-11-06] MEDS ORDERED: methaDONE HCL 10 MG TABLET ONE (02:49)
[2021-11-06] MEDS: methaDONE 40 MG, methaDONE 30 MG PO SCH (05:57)
[2021-11-06] MEDS: LACTULOSE 20 GM/30 ML UDC (FOR ORAL USE ONLY) PO SCH ×3 (05:59→21:06)
[2021-11-06] MEDS: HYDROCHLOROTHIAZIDE 25 MG TABLET (FP) PO SCH (09:47)
[2021-11-06] MEDS: PRENATAL VITAMINS W/ FOLIC ACID TABLET (FP) PO SCH (09:48)
[2021-11-06] MEDS: NADOLOL 20 MG TABLET (FP) PO SCH (09:48)
[2021-11-06] MEDS: LIDOCAINE 5% TOPICAL PATCH TP SCH (09:48)
[2021-11-06] MEDS: MELATONIN 5 MG TABLETS PO PRN (21:06)
[2021-11-06] MEDS: THIAMINE HCL 100 MG TABLET (FP) PO SCH (21:06)
[2021-11-06] MEDS: LIDOCAINE PATCH REMOVAL MC SCH (21:07)
[2021-11-06] MEDS: hydrOXYzine PAMOATE 25 MG CAPSULE (FP) PO PRN (21:07)
[2021-11-07] MEDS ORDERED: methaDONE HCL 10 MG TABLET ONE (03:09)
[2021-11-07] MEDS ORDERED: methaDONE HCL 40 MG DISPERSABLE TABLET ONE (03:10)
[2021-11-07] MEDS: LACTULOSE 20 GM/30 ML UDC (FOR ORAL USE ONLY) PO SCH ×3 (06:00→21:34)
[2021-11-07] MEDS: methaDONE 40 MG, methaDONE 30 MG PO SCH (06:00)
[2021-11-07] MEDS: PRENATAL VITAMINS W/ FOLIC ACID TABLET (FP) PO SCH (09:45)
[2021-11-07] MEDS: HYDROCHLOROTHIAZIDE 25 MG TABLET (FP) PO SCH (09:45)
[2021-11-07] MEDS: NADOLOL 20 MG TABLET (FP) PO SCH (09:45)
[2021-11-07] MEDS: LIDOCAINE 5% TOPICAL PATCH TP SCH (09:46)
[2021-11-07] MEDS: hydrOXYzine PAMOATE 25 MG CAPSULE (FP) PO PRN ×2 (09:47→21:34)
[2021-11-07] MEDS: THIAMINE HCL 100 MG TABLET (FP) PO SCH (21:33)
[2021-11-07] MEDS: MELATONIN 5 MG TABLETS PO PRN (21:33)
[2021-11-07] MEDS: LIDOCAINE PATCH REMOVAL MC SCH (21:33)
[2021-11-07] MEDS: ALBUTEROL SO4 HFA INHALER IH PRN (21:33)
[2021-11-08] MEDS ORDERED: methaDONE HCL 40 MG DISPERSABLE TABLET ONE (03:16)
[2021-11-08] MEDS ORDERED: methaDONE HCL 10 MG TABLET ONE (03:16)
[2021-11-08] MEDS: methaDONE 40 MG, methaDONE 30 MG PO SCH (06:28)
[2021-11-08] MEDS: LACTULOSE 20 GM/30 ML UDC (FOR ORAL USE ONLY) PO SCH ×3 (06:30→21:03)
[2021-11-08] MEDS: HYDROCHLOROTHIAZIDE 25 MG TABLET (FP) PO SCH (09:25)
[2021-11-08] MEDS: NADOLOL 20 MG TABLET (FP) PO SCH (09:26)
[2021-11-08] MEDS: LIDOCAINE 5% TOPICAL PATCH TP SCH (09:27)
[2021-11-08] MEDS: hydrOXYzine PAMOATE 25 MG CAPSULE (FP) PO PRN ×2 (09:27→21:03)
[2021-11-08] MEDS: PRENATAL VITAMINS W/ FOLIC ACID TABLET (FP) PO SCH (09:27)
[2021-11-08] MEDS: LIDOCAINE PATCH REMOVAL MC SCH (21:03)
[2021-11-08] MEDS: THIAMINE HCL 100 MG TABLET (FP) PO SCH (21:03)
[2021-11-08] MEDS: MELATONIN 5 MG TABLETS PO PRN (21:03)
[2021-11-09] MEDS ORDERED: methaDONE HCL 10 MG TABLET ONE (04:08)
[2021-11-09] MEDS ORDERED: methaDONE HCL 40 MG DISPERSABLE TABLET ONE (04:08)
[2021-11-09] MEDS: LACTULOSE 20 GM/30 ML UDC (FOR ORAL USE ONLY) PO SCH ×3 (05:56→21:12)
[2021-11-09] MEDS: methaDONE 40 MG, methaDONE 30 MG PO SCH (05:56)
[2021-11-09] MEDS: NADOLOL 20 MG TABLET (FP) PO SCH (10:06)
[2021-11-09] MEDS: HYDROCHLOROTHIAZIDE 25 MG TABLET (FP) PO SCH (10:07)
[2021-11-09] MEDS: PRENATAL VITAMINS W/ FOLIC ACID TABLET (FP) PO SCH (10:07)
[2021-11-09] MEDS: hydrOXYzine PAMOATE 25 MG CAPSULE (FP) PO PRN ×2 (10:09→21:11)
[2021-11-09] MEDS: LIDOCAINE 5% TOPICAL PATCH TP SCH (10:10)
[2021-11-09] MEDS ORDERED: AMMONIUM LACTATE 12% LOTION 225 GM BOTTLE TP PRN (10:37)
[2021-11-09] MEDS: GABAPENTIN 300 MG CAPSULE PO SCH ×2 (13:33→21:12)
[2021-11-09] MEDS: THIAMINE HCL 100 MG TABLET (FP) PO SCH (21:11)
[2021-11-09] MEDS: LIDOCAINE PATCH REMOVAL MC SCH (21:12)
[2021-11-10] MEDS ORDERED: methaDONE HCL 10 MG TABLET ONE (03:14)
[2021-11-10] MEDS ORDERED: methaDONE HCL 40 MG DISPERSABLE TABLET ONE (03:14)
[2021-11-10] MEDS: methaDONE 40 MG, methaDONE 30 MG PO SCH (05:45)
[2021-11-10] MEDS: hydrOXYzine PAMOATE 25 MG CAPSULE (FP) PO PRN ×2 (05:45→21:26)
[2021-11-10] MEDS: GABAPENTIN 300 MG CAPSULE PO SCH ×3 (05:45→21:26)
[2021-11-10] MEDS: LACTULOSE 20 GM/30 ML UDC (FOR ORAL USE ONLY) PO SCH ×3 (05:46→21:26)
[2021-11-10] MEDS: TAMSULOSIN HCL 0.4 MG CAP PO SCH (07:30)
[2021-11-10] MEDS: PRENATAL VITAMINS W/ FOLIC ACID TABLET (FP) PO SCH (10:52)
[2021-11-10] MEDS: HYDROCHLOROTHIAZIDE 25 MG TABLET (FP) PO SCH (10:52)
[2021-11-10] MEDS: PANTOPRAZOLE 40 MG TABLET PO SCH (10:52)
[2021-11-10] MEDS: NADOLOL 20 MG TABLET (FP) PO SCH (10:53)
[2021-11-10] MEDS: LIDOCAINE 5% TOPICAL PATCH TP SCH (10:54)
[2021-11-10] MEDS: THIAMINE HCL 100 MG TABLET (FP) PO SCH (21:26)
[2021-11-10] MEDS: MELATONIN 5 MG TABLETS PO PRN (21:26)
[2021-11-10] MEDS: LIDOCAINE PATCH REMOVAL MC SCH (21:27)
[2021-11-11] MEDS ORDERED: methaDONE HCL 10 MG TABLET ONE (04:29)
[2021-11-11] MEDS ORDERED: methaDONE HCL 40 MG DISPERSABLE TABLET ONE (04:29)
[2021-11-11] MEDS: LACTULOSE 20 GM/30 ML UDC (FOR ORAL USE ONLY) PO SCH ×3 (06:08→22:52)
[2021-11-11] MEDS: methaDONE 40 MG, methaDONE 30 MG PO SCH (06:09)
[2021-11-11] MEDS: GABAPENTIN 300 MG CAPSULE PO SCH ×3 (06:09→21:33)
[2021-11-11] MEDS: PRENATAL VITAMINS W/ FOLIC ACID TABLET (FP) PO SCH (09:35)
[2021-11-11] MEDS: hydrOXYzine PAMOATE 25 MG CAPSULE (FP) PO PRN ×2 (09:36→21:33)
[2021-11-11] MEDS: TAMSULOSIN HCL 0.4 MG CAP PO SCH (09:36)
[2021-11-11] MEDS: PANTOPRAZOLE 40 MG TABLET PO SCH (09:36)
[2021-11-11] MEDS: HYDROCHLOROTHIAZIDE 25 MG TABLET (FP) PO SCH (09:36)
[2021-11-11] MEDS: NADOLOL 20 MG TABLET (FP) PO SCH (09:36)
[2021-11-11] MEDS: LIDOCAINE 5% TOPICAL PATCH TP SCH (10:13)
[2021-11-11] MEDS: MELATONIN 5 MG TABLETS PO PRN (21:33)
[2021-11-11] MEDS: THIAMINE HCL 100 MG TABLET (FP) PO SCH (21:33)
[2021-11-11] MEDS: LIDOCAINE PATCH REMOVAL MC SCH (22:52)
[2021-11-12] MEDS ORDERED: methaDONE HCL 10 MG TABLET ONE (03:02)
[2021-11-12] MEDS ORDERED: methaDONE HCL 40 MG DISPERSABLE TABLET ONE (03:02)
[2021-11-12] MEDS: LACTULOSE 20 GM/30 ML UDC (FOR ORAL USE ONLY) PO SCH ×3 (05:51→21:26)
[2021-11-12] MEDS: methaDONE 40 MG, methaDONE 30 MG PO SCH (05:52)
[2021-11-12] MEDS: GABAPENTIN 300 MG CAPSULE PO SCH ×3 (05:52→21:25)
[2021-11-12] MEDS: hydrOXYzine PAMOATE 25 MG CAPSULE (FP) PO PRN ×4 (05:53→21:25)
[2021-11-12 06:55] VITALS: TEMP 98.6
[2021-11-12] MEDS: NADOLOL 20 MG TABLET (FP) PO SCH (09:30)
[2021-11-12] MEDS: PRENATAL VITAMINS W/ FOLIC ACID TABLET (FP) PO SCH (09:30)
[2021-11-12] MEDS: PANTOPRAZOLE 40 MG TABLET PO SCH (09:30)
[2021-11-12] MEDS: HYDROCHLOROTHIAZIDE 25 MG TABLET (FP) PO SCH (09:30)
[2021-11-12] MEDS: LIDOCAINE 5% TOPICAL PATCH TP SCH (09:30)
[2021-11-12] MEDS: TAMSULOSIN HCL 0.4 MG CAP PO SCH (09:30)
[2021-11-12] MEDS: THIAMINE HCL 100 MG TABLET (FP) PO SCH (21:25)
[2021-11-12] MEDS: MELATONIN 5 MG TABLETS PO PRN (21:25)
[2021-11-12] MEDS: LIDOCAINE PATCH REMOVAL MC SCH (22:16)
[2021-11-13] MEDS ORDERED: methaDONE HCL 10 MG TABLET ONE (03:19)
[2021-11-13] MEDS ORDERED: methaDONE HCL 40 MG DISPERSABLE TABLET ONE (03:19)
[2021-11-13] MEDS: LACTULOSE 20 GM/30 ML UDC (FOR ORAL USE ONLY) PO SCH (05:49)
[2021-11-13] MEDS: methaDONE 40 MG, methaDONE 30 MG PO SCH (05:49)
[2021-11-13] MEDS: GABAPENTIN 300 MG CAPSULE PO SCH (05:50)
[2021-11-13] MEDS: hydrOXYzine PAMOATE 25 MG CAPSULE (FP) PO PRN (05:51)
[2021-11-13 06:43] VITALS: BP 121/65; PULSE 67
[2021-11-13] MEDS: TAMSULOSIN HCL 0.4 MG CAP PO SCH (07:30)
[2021-11-13] MEDS: NADOLOL 20 MG TABLET (FP) PO SCH (09:25)
[2021-11-13] MEDS: LIDOCAINE 5% TOPICAL PATCH TP SCH (09:25)
[2021-11-13] MEDS: HYDROCHLOROTHIAZIDE 25 MG TABLET (FP) PO SCH (09:25)
[2021-11-13] MEDS: PANTOPRAZOLE 40 MG TABLET PO SCH (09:25)
[2021-11-13] MEDS: PRENATAL VITAMINS W/ FOLIC ACID TABLET (FP) PO SCH (09:25)
== END 2021-11-13 10:23 | disposition home or self-care (01) | DRG 772 ==
LOC: YASAS 15:22 → Y3W 23:46
PROVIDERS: ADMIT Allergy & Immunology; ATTEND Allergy & Immunology
PROC: HZ42ZZZ Group Counseling for Substance Abuse Treatment, Cognitive-Behavioral (ICD-10-PCS; principal; 2021-10-31)
DX: F11.20 Opioid dependence, uncomplicated (principal); F10.20 Alcohol dependence, uncomplicated; F17.210 Nicotine dependence, cigarettes, uncomplicated; I10 Essential (primary) hypertension; N40.0 Benign prostatic hyperplasia without lower urinary tract symptoms; R79.89 Other specified abnormal findings of blood chemistry; R06.02 Shortness of breath; Z87.09 Personal history of other diseases of the respiratory system
CPT/HCPCS: 71046-TC-FY; 82140; 83036; C9803; U0003; U0005

== ENCOUNTER 2021-12-12 18:37 | Inpatient (IN) | payer OTHER ==
[2021-12-12 20:08] VITALS: BMI 35.2
[2021-12-12] MEDS ORDERED: BISMUTH SUBSALICYLATE 524 MG/30 ML PO PRN (21:12)
[2021-12-12] MEDS ORDERED: ACETAMINOPHEN 325 MG TABLET (FP) PO PRN ×2 (21:12)
[2021-12-12] MEDS ORDERED: hydrOXYzine PAMOATE 25 MG CAPSULE (FP) PO PRN (21:12)
[2021-12-12] MEDS ORDERED: MAGNESIUM CITRATE 300 ML BOTTLE PO PRN (21:12)
[2021-12-12] MEDS ORDERED: MENTHOL/PHENOL 1 EACH UD MM PRN (21:12)
[2021-12-12] MEDS ORDERED: ONDANSETRON *ODT* 4 MG TABLET SL PRN (21:12)
[2021-12-12] MEDS ORDERED: IBUPROFEN 400 MG TABLET (FP) PO PRN (21:12)
[2021-12-12] MEDS ORDERED: LOPERAMIDE HCL 2 MG CAPSULE PO PRN (21:12)
[2021-12-12] MEDS ORDERED: MAG HYDROX/AL HYDROX/SIMETH 30 ML UNIT-DOSE CUP PO PRN (21:12)
[2021-12-12] MEDS ORDERED: MAGNESIUM HYDROX 2400MG/30ML ORAL SUSPENSION 30 ML CUP PO PRN (21:12)
[2021-12-13] MEDS: chlordiazePOXIDE HCL 25 MG CAPSULE PO SCH ×5 (01:00→22:18)
[2021-12-13] MEDS: THIAMINE HCL 100 MG TABLET (FP) PO SCH ×2 (01:52→22:19)
[2021-12-13] MEDS ORDERED: METHOCARBAMOL 500 MG TABLET ONE (02:17)
[2021-12-13] MEDS ORDERED: chlordiazePOXIDE HCL 25 MG CAPSULE ONE ×3 (02:17→09:15)
[2021-12-13] MEDS: chlordiazePOXIDE HCL 25 MG CAPSULE PO PRN ×2 (02:22→09:19)
[2021-12-13] MEDS ORDERED: methaDONE 40 MG, methaDONE 30 MG PO ONE (10:45)
[2021-12-13] MEDS ORDERED: methaDONE HCL 10 MG TABLET PO SCH (10:45)
[2021-12-13 10:54] LABS: HEMATOCRIT 40.8 % (35.4-49); HEMOGLOBIN 13.7 GM/dL (11.7-16.9); MCH 34.6 pg (25.7-33.7); MCHC 33.6 g/dl (32.0-35.9); MEAN CELL VOLUME 103.1 fl (80-96); MEAN PLT VOLUME 10.9 fl (7.5-11.1); PLATELET COUNT 43 10^3/uL (134-434); RBC 3.96 M/mm3 (4.00-5.60); WHITE BLOOD COUNT 4.2 K/mm3 (4.0-10.0)
[2021-12-13 11:02] LABS: ALBUMIN 3.4 g/dl (3.4-5.0); CALCIUM 8.6 mg/dL (8.5-10.1)
[2021-12-13 11:03] LABS: BLOOD UREA NITROGEN 8.1 mg/dL (7-18)
[2021-12-13 11:07] LABS: BILIRUBIN,TOTAL 3.2 mg/dL (0.2-1)
[2021-12-13] MEDS ORDERED: methaDONE HCL 10 MG TABLET ONE (11:20)
[2021-12-13] MEDS ORDERED: methaDONE HCL 40 MG DISPERSABLE TABLET ONE (11:20)
[2021-12-13] MEDS: HYDROCHLOROTHIAZIDE 25 MG TABLET (FP) PO SCH (11:30)
[2021-12-13] MEDS: PRENATAL VITAMINS W/ FOLIC ACID TABLET (FP) PO SCH (11:30)
[2021-12-13] MEDS: NADOLOL 20 MG TABLET (FP) PO SCH (12:10)
[2021-12-13] MEDS: POTASSIUM CHLORIDE ORAL LIQUID 20 MEQ/15 ML PO SCH (19:00)
[2021-12-13] MEDS: MELATONIN 5 MG TABLETS PO PRN (22:19)
[2021-12-13] MEDS: METHOCARBAMOL 500 MG TABLET PO PRN (22:21)
[2021-12-14] MEDS ORDERED: methaDONE HCL 40 MG DISPERSABLE TABLET ONE (04:28)
[2021-12-14] MEDS ORDERED: methaDONE HCL 10 MG TABLET ONE (04:28)
[2021-12-14] MEDS: chlordiazePOXIDE HCL 25 MG CAPSULE PO SCH ×4 (05:19→22:12)
[2021-12-14] MEDS: methaDONE 40 MG, methaDONE 30 MG PO SCH (05:20)
[2021-12-14] MEDS: NADOLOL 20 MG TABLET (FP) PO SCH (10:15)
[2021-12-14] MEDS: HYDROCHLOROTHIAZIDE 25 MG TABLET (FP) PO SCH (10:15)
[2021-12-14] MEDS: PRENATAL VITAMINS W/ FOLIC ACID TABLET (FP) PO SCH (10:15)
[2021-12-14] MEDS: POTASSIUM CHLORIDE ORAL LIQUID 20 MEQ/15 ML PO SCH (10:15)
[2021-12-14] MEDS: THIAMINE HCL 100 MG TABLET (FP) PO SCH (22:12)
[2021-12-14] MEDS: MELATONIN 5 MG TABLETS PO PRN (22:12)
[2021-12-15] MEDS ORDERED: chlordiazePOXIDE HCL 10 MG CAPSULE PO PRN
[2021-12-15] MEDS ORDERED: methaDONE HCL 40 MG DISPERSABLE TABLET ONE (04:19)
[2021-12-15] MEDS ORDERED: methaDONE HCL 10 MG TABLET ONE (04:19)
[2021-12-15] MEDS: chlordiazePOXIDE HCL 10 MG CAPSULE PO SCH ×4 (05:13→22:10)
[2021-12-15] MEDS: methaDONE 40 MG, methaDONE 30 MG PO SCH (05:13)
[2021-12-15 10:13] LABS: ALBUMIN 3.1 g/dl (3.4-5.0); BLOOD UREA NITROGEN 17.4 mg/dL (7-18); CALCIUM 9.5 mg/dL (8.5-10.1)
[2021-12-15] MEDS: NADOLOL 20 MG TABLET (FP) PO SCH (10:15)
[2021-12-15] MEDS: PRENATAL VITAMINS W/ FOLIC ACID TABLET (FP) PO SCH (10:15)
[2021-12-15] MEDS: HYDROCHLOROTHIAZIDE 25 MG TABLET (FP) PO SCH (10:15)
[2021-12-15 10:16] LABS: CREATININE 1.8 mg/dL (0.55-1.3)
[2021-12-15] MEDS: METHOCARBAMOL 500 MG TABLET PO PRN (10:17)
[2021-12-15 10:18] LABS: BILIRUBIN,TOTAL 2.9 mg/dL (0.2-1); TOT PROT 8.1 g/dl (6.4-8.2)
[2021-12-15 16:08] LABS: SARS-CoV-2 NAA Not Detected (Not Detected)
[2021-12-15] MEDS: THIAMINE HCL 100 MG TABLET (FP) PO SCH (22:10)
[2021-12-15] MEDS: MELATONIN 5 MG TABLETS PO PRN (22:10)
[2021-12-16] MEDS ORDERED: methaDONE HCL 10 MG TABLET ONE (04:30)
[2021-12-16] MEDS ORDERED: methaDONE HCL 40 MG DISPERSABLE TABLET ONE (04:30)
[2021-12-16] MEDS: methaDONE 40 MG, methaDONE 30 MG PO SCH (05:10)
[2021-12-16] MEDS: chlordiazePOXIDE HCL 10 MG CAPSULE PO SCH ×2 (05:10→17:47)
[2021-12-16] MEDS ORDERED: POTASSIUM CHLORIDE TABS 20 MEQ TABLET.ER (FP) PO ONE (09:46)
[2021-12-16] MEDS: PRENATAL VITAMINS W/ FOLIC ACID TABLET (FP) PO SCH (10:43)
[2021-12-16] MEDS: HYDROCHLOROTHIAZIDE 25 MG TABLET (FP) PO SCH (10:47)
[2021-12-16] MEDS: NADOLOL 20 MG TABLET (FP) PO SCH (10:47)
[2021-12-16] MEDS: THIAMINE HCL 100 MG TABLET (FP) PO SCH (22:10)
[2021-12-16] MEDS: MELATONIN 5 MG TABLETS PO PRN (22:11)
[2021-12-17] MEDS ORDERED: methaDONE HCL 40 MG DISPERSABLE TABLET ONE (04:59)
[2021-12-17] MEDS ORDERED: methaDONE HCL 10 MG TABLET ONE (04:59)
[2021-12-17] MEDS ORDERED: chlordiazePOXIDE HCL 10 MG CAPSULE PO ONE (05:00)
[2021-12-17] MEDS: methaDONE 40 MG, methaDONE 30 MG PO SCH (05:15)
[2021-12-17] MEDS: PRENATAL VITAMINS W/ FOLIC ACID TABLET (FP) PO SCH (10:34)
[2021-12-17] MEDS: HYDROCHLOROTHIAZIDE 25 MG TABLET (FP) PO SCH (10:35)
[2021-12-17] MEDS: NADOLOL 20 MG TABLET (FP) PO SCH (10:36)
[2021-12-17] MEDS: THIAMINE HCL 100 MG TABLET (FP) PO SCH (22:23)
[2021-12-17] MEDS: MELATONIN 5 MG TABLETS PO PRN (23:39)
[2021-12-18] MEDS: methaDONE 40 MG, methaDONE 30 MG PO SCH (05:09)
[2021-12-18] MEDS ORDERED: methaDONE HCL 40 MG DISPERSABLE TABLET ONE (05:19)
[2021-12-18] MEDS ORDERED: methaDONE HCL 10 MG TABLET ONE (05:19)
[2021-12-18] MEDS: PRENATAL VITAMINS W/ FOLIC ACID TABLET (FP) PO SCH (10:15)
[2021-12-18] MEDS: HYDROCHLOROTHIAZIDE 25 MG TABLET (FP) PO SCH (10:15)
[2021-12-18] MEDS: NADOLOL 20 MG TABLET (FP) PO SCH (10:16)
[2021-12-18 12:36] VITALS: BP 128/78; PULSE 86; TEMP 97.1
== END 2021-12-18 12:38 | disposition other institution (70) | DRG 773 ==
LOC: YASAS 18:37 → Y3N 12-13 09:16
PROVIDERS: ADMIT Allergy & Immunology; ATTEND Allergy & Immunology
PROC: HZ2ZZZZ Detoxification Services for Substance Abuse Treatment (ICD-10-PCS; principal; 2021-12-13)
DX: F10.230 Alcohol dependence with withdrawal, uncomplicated (principal); F11.20 Opioid dependence, uncomplicated; G62.9 Polyneuropathy, unspecified; I11.0 Hypertensive heart disease with heart failure; I50.9 Heart failure, unspecified; E87.6 Hypokalemia; B18.2 Chronic viral hepatitis C; R74.8 Abnormal levels of other serum enzymes; R73.9 Hyperglycemia, unspecified; Z86.11 Personal history of tuberculosis; Z99.89 Dependence on other enabling machines and devices; Z87.891 Personal history of nicotine dependence
CPT/HCPCS: 36415; 80053; 85027; 86780; C9803-CS; U0003; U0005

== ENCOUNTER 2021-12-18 12:42 | Inpatient (IN) | payer OTHER ==
[2021-12-18] MEDS ORDERED: guaiFENesin 200 MG/10 ML 10 ML UNIT-DOSE CUPS PO PRN (14:00)
[2021-12-18] MEDS ORDERED: IBUPROFEN 400 MG TABLET (FP) PO PRN (14:00)
[2021-12-18] MEDS ORDERED: ACETAMINOPHEN 325 MG TABLET (FP) PO PRN (14:00)
[2021-12-18] MEDS ORDERED: MENTHOL/PHENOL 1 EACH UD MM PRN (14:00)
[2021-12-18] MEDS ORDERED: P-EPHED 60MG/TRIPROLIDI 2.5MG TABLET PO PRN (14:00)
[2021-12-18] MEDS ORDERED: LOPERAMIDE HCL 2 MG CAPSULE PO PRN (14:00)
[2021-12-18] MEDS ORDERED: MAGNESIUM HYDROX 2400MG/30ML ORAL SUSPENSION 30 ML CUP PO PRN (14:00)
[2021-12-18] MEDS ORDERED: MAG HYDROX/AL HYDROX/SIMETH 30 ML UNIT-DOSE CUP PO PRN (14:00)
[2021-12-18] MEDS ORDERED: MAGNESIUM CITRATE 300 ML BOTTLE PO PRN (14:00)
[2021-12-18] MEDS ORDERED: ALBUTEROL SO4 HFA INHALER IH SCH (14:15)
[2021-12-18] MEDS ORDERED: ALBUTEROL SO4 HFA INHALER IH PRN (14:54)
[2021-12-18] MEDS: THIAMINE HCL 100 MG TABLET (FP) PO SCH (21:07)
[2021-12-18] MEDS: MELATONIN 5 MG TABLETS PO SCH (21:07)
[2021-12-18] MEDS: hydrOXYzine PAMOATE 25 MG CAPSULE (FP) PO PRN (21:08)
[2021-12-19] MEDS ORDERED: methaDONE HCL 40 MG DISPERSABLE TABLET PO SCH (06:00)
[2021-12-19] MEDS ORDERED: methaDONE HCL 40 MG DISPERSABLE TABLET ONE (06:04)
[2021-12-19] MEDS ORDERED: methaDONE HCL 10 MG TABLET ONE (06:04)
[2021-12-19] MEDS: methaDONE 40 MG, methaDONE 30 MG PO SCH (06:24)
[2021-12-19] MEDS: hydrOXYzine PAMOATE 25 MG CAPSULE (FP) PO PRN (06:24)
[2021-12-19] MEDS ORDERED: HYDROCHLOROTHIAZIDE 25 MG TABLET (FP) PO SCH (10:00)
[2021-12-19] MEDS ORDERED: NADOLOL 20 MG TABLET (FP) PO SCH (10:00)
[2021-12-19] MEDS: HYDROCHLOROTHIAZIDE 25 MG TABLET (FP) PO SCH (10:09)
[2021-12-19] MEDS: NADOLOL 20 MG TABLET (FP) PO SCH (10:09)
[2021-12-19] MEDS: PRENATAL VITAMINS W/ FOLIC ACID TABLET (FP) PO SCH (10:10)
[2021-12-19 11:08] LABS: CALCIUM 9.3 mg/dL (8.5-10.1)
[2021-12-19 11:09] LABS: ALBUMIN 3.1 g/dl (3.4-5.0); BLOOD UREA NITROGEN 14.5 mg/dL (7-18)
[2021-12-19 11:12] LABS: CREATININE 1.3 mg/dL (0.55-1.3)
[2021-12-19 11:13] LABS: BILIRUBIN,TOTAL 2.2 mg/dL (0.2-1); TOT PROT 8.1 g/dl (6.4-8.2)
[2021-12-19] MEDS: PANTOPRAZOLE 20 MG TABLET PO SCH (11:45)
[2021-12-19] MEDS: MELATONIN 5 MG TABLETS PO SCH (21:32)
[2021-12-19] MEDS: THIAMINE HCL 100 MG TABLET (FP) PO SCH (21:32)
[2021-12-20] MEDS ORDERED: methaDONE HCL 10 MG TABLET ONE (03:11)
[2021-12-20] MEDS ORDERED: methaDONE HCL 40 MG DISPERSABLE TABLET ONE (03:12)
[2021-12-20] MEDS: methaDONE 40 MG, methaDONE 30 MG PO SCH (06:12)
[2021-12-20] MEDS: PANTOPRAZOLE 20 MG TABLET PO SCH (09:44)
[2021-12-20] MEDS: NADOLOL 20 MG TABLET (FP) PO SCH (09:45)
[2021-12-20] MEDS: PRENATAL VITAMINS W/ FOLIC ACID TABLET (FP) PO SCH (09:45)
[2021-12-20] MEDS: HYDROCHLOROTHIAZIDE 25 MG TABLET (FP) PO SCH (09:45)
[2021-12-20] MEDS ORDERED: LACTULOSE 20 GM/30 ML UDC (FOR ORAL USE ONLY) PO SCH (10:00)
[2021-12-20] MEDS: MELATONIN 5 MG TABLETS PO SCH (21:16)
[2021-12-20] MEDS: THIAMINE HCL 100 MG TABLET (FP) PO SCH (21:16)
[2021-12-21] MEDS ORDERED: methaDONE HCL 10 MG TABLET ONE (03:15)
[2021-12-21] MEDS ORDERED: methaDONE HCL 40 MG DISPERSABLE TABLET ONE (03:15)
[2021-12-21] MEDS: methaDONE 40 MG, methaDONE 30 MG PO SCH (06:14)
[2021-12-21] MEDS: NADOLOL 20 MG TABLET (FP) PO SCH (09:20)
[2021-12-21] MEDS: HYDROCHLOROTHIAZIDE 25 MG TABLET (FP) PO SCH (09:20)
[2021-12-21] MEDS: PRENATAL VITAMINS W/ FOLIC ACID TABLET (FP) PO SCH (09:20)
[2021-12-21] MEDS: PANTOPRAZOLE 20 MG TABLET PO SCH (09:20)
[2021-12-21] MEDS: hydrOXYzine PAMOATE 25 MG CAPSULE (FP) PO PRN (21:34)
[2021-12-21] MEDS: MELATONIN 5 MG TABLETS PO SCH (21:34)
[2021-12-21] MEDS: THIAMINE HCL 100 MG TABLET (FP) PO SCH (21:34)
[2021-12-21] MEDS: LACTULOSE 20 GM/30 ML UDC (FOR ORAL USE ONLY) PO SCH (21:35)
[2021-12-22] MEDS ORDERED: methaDONE HCL 10 MG TABLET ONE (03:11)
[2021-12-22] MEDS ORDERED: methaDONE HCL 40 MG DISPERSABLE TABLET ONE (03:11)
[2021-12-22] MEDS: methaDONE 40 MG, methaDONE 30 MG PO SCH (06:22)
[2021-12-22] MEDS: LACTULOSE 20 GM/30 ML UDC (FOR ORAL USE ONLY) PO SCH ×3 (06:23→21:29)
[2021-12-22] MEDS: PANTOPRAZOLE 20 MG TABLET PO SCH (09:46)
[2021-12-22] MEDS: NADOLOL 20 MG TABLET (FP) PO SCH (09:46)
[2021-12-22] MEDS: PRENATAL VITAMINS W/ FOLIC ACID TABLET (FP) PO SCH (09:46)
[2021-12-22] MEDS: HYDROCHLOROTHIAZIDE 25 MG TABLET (FP) PO SCH (09:46)
[2021-12-22] MEDS: THIAMINE HCL 100 MG TABLET (FP) PO SCH (21:29)
[2021-12-22] MEDS: MELATONIN 5 MG TABLETS PO SCH (21:29)
[2021-12-23 00:07] LABS: SARS-CoV-2 NAA Not Detected (Not Detected)
[2021-12-23] MEDS ORDERED: methaDONE HCL 10 MG TABLET ONE (03:11)
[2021-12-23] MEDS ORDERED: methaDONE HCL 40 MG DISPERSABLE TABLET ONE (03:11)
[2021-12-23] MEDS: methaDONE 40 MG, methaDONE 30 MG PO SCH (06:24)
[2021-12-23] MEDS: LACTULOSE 20 GM/30 ML UDC (FOR ORAL USE ONLY) PO SCH ×3 (06:24→21:08)
[2021-12-23] MEDS: NADOLOL 20 MG TABLET (FP) PO SCH (09:48)
[2021-12-23] MEDS: HYDROCHLOROTHIAZIDE 25 MG TABLET (FP) PO SCH (09:48)
[2021-12-23] MEDS: PANTOPRAZOLE 20 MG TABLET PO SCH (09:48)
[2021-12-23] MEDS: PRENATAL VITAMINS W/ FOLIC ACID TABLET (FP) PO SCH (09:48)
[2021-12-23] MEDS: THIAMINE HCL 100 MG TABLET (FP) PO SCH (21:08)
[2021-12-23] MEDS: MELATONIN 5 MG TABLETS PO SCH (21:08)
[2021-12-24] MEDS ORDERED: methaDONE HCL 10 MG TABLET ONE (03:27)
[2021-12-24] MEDS ORDERED: methaDONE HCL 40 MG DISPERSABLE TABLET ONE (03:28)
[2021-12-24] MEDS: LACTULOSE 20 GM/30 ML UDC (FOR ORAL USE ONLY) PO SCH ×3 (06:16→21:29)
[2021-12-24] MEDS: methaDONE 40 MG, methaDONE 30 MG PO SCH (06:17)
[2021-12-24] MEDS: PRENATAL VITAMINS W/ FOLIC ACID TABLET (FP) PO SCH (10:05)
[2021-12-24] MEDS: PANTOPRAZOLE 20 MG TABLET PO SCH (10:05)
[2021-12-24] MEDS: NADOLOL 20 MG TABLET (FP) PO SCH (10:06)
[2021-12-24] MEDS: HYDROCHLOROTHIAZIDE 25 MG TABLET (FP) PO SCH (10:06)
[2021-12-24] MEDS: THIAMINE HCL 100 MG TABLET (FP) PO SCH (21:29)
[2021-12-24] MEDS: MELATONIN 5 MG TABLETS PO SCH (21:29)
[2021-12-25] MEDS ORDERED: methaDONE HCL 40 MG DISPERSABLE TABLET ONE (03:23)
[2021-12-25] MEDS ORDERED: methaDONE HCL 10 MG TABLET ONE (03:23)
[2021-12-25] MEDS: methaDONE 40 MG, methaDONE 30 MG PO SCH (06:09)
[2021-12-25] MEDS: LACTULOSE 20 GM/30 ML UDC (FOR ORAL USE ONLY) PO SCH ×4 (06:10→21:30)
[2021-12-25] MEDS: PRENATAL VITAMINS W/ FOLIC ACID TABLET (FP) PO SCH (09:44)
[2021-12-25] MEDS: NADOLOL 20 MG TABLET (FP) PO SCH ×2 (09:44→10:03)
[2021-12-25] MEDS: PANTOPRAZOLE 20 MG TABLET PO SCH (09:44)
[2021-12-25] MEDS: HYDROCHLOROTHIAZIDE 25 MG TABLET (FP) PO SCH ×2 (09:44→10:03)
[2021-12-25] MEDS: THIAMINE HCL 100 MG TABLET (FP) PO SCH (21:28)
[2021-12-25] MEDS: MELATONIN 5 MG TABLETS PO SCH (21:28)
[2021-12-26] MEDS ORDERED: methaDONE HCL 10 MG TABLET ONE (06:19)
[2021-12-26] MEDS ORDERED: methaDONE HCL 40 MG DISPERSABLE TABLET ONE (06:19)
[2021-12-26] MEDS: methaDONE 40 MG, methaDONE 30 MG PO SCH (06:23)
[2021-12-26] MEDS: LACTULOSE 20 GM/30 ML UDC (FOR ORAL USE ONLY) PO SCH ×3 (06:24→21:12)
[2021-12-26] MEDS: PRENATAL VITAMINS W/ FOLIC ACID TABLET (FP) PO SCH (09:52)
[2021-12-26] MEDS: PANTOPRAZOLE 20 MG TABLET PO SCH (09:52)
[2021-12-26] MEDS: HYDROCHLOROTHIAZIDE 25 MG TABLET (FP) PO SCH (09:54)
[2021-12-26] MEDS: NADOLOL 20 MG TABLET (FP) PO SCH (09:54)
[2021-12-26] MEDS: MELATONIN 5 MG TABLETS PO SCH (21:12)
[2021-12-26] MEDS: THIAMINE HCL 100 MG TABLET (FP) PO SCH (21:12)
[2021-12-27] MEDS ORDERED: methaDONE HCL 40 MG DISPERSABLE TABLET ONE (03:12)
[2021-12-27] MEDS ORDERED: methaDONE HCL 10 MG TABLET ONE (03:12)
[2021-12-27] MEDS: methaDONE 40 MG, methaDONE 30 MG PO SCH (06:26)
[2021-12-27] MEDS: LACTULOSE 20 GM/30 ML UDC (FOR ORAL USE ONLY) PO SCH ×3 (06:55→21:11)
[2021-12-27] MEDS: NADOLOL 20 MG TABLET (FP) PO SCH (10:15)
[2021-12-27] MEDS: HYDROCHLOROTHIAZIDE 25 MG TABLET (FP) PO SCH (10:15)
[2021-12-27] MEDS: PRENATAL VITAMINS W/ FOLIC ACID TABLET (FP) PO SCH (10:16)
[2021-12-27] MEDS: PANTOPRAZOLE 20 MG TABLET PO SCH (10:16)
[2021-12-27] MEDS ORDERED: COLLOIDAL OATMEAL 1 BAR EACH TP PRN (12:28)
[2021-12-27] MEDS: BACITRACIN 0.9 GM PACKET TP SCH ×2 (12:31→21:11)
[2021-12-27] MEDS: THIAMINE HCL 100 MG TABLET (FP) PO SCH (21:11)
[2021-12-27] MEDS: MELATONIN 5 MG TABLETS PO SCH (21:11)
[2021-12-28] MEDS ORDERED: methaDONE HCL 10 MG TABLET ONE (05:21)
[2021-12-28] MEDS ORDERED: methaDONE HCL 40 MG DISPERSABLE TABLET ONE (05:21)
[2021-12-28] MEDS: LACTULOSE 20 GM/30 ML UDC (FOR ORAL USE ONLY) PO SCH ×3 (06:21→21:50)
[2021-12-28] MEDS: methaDONE 40 MG, methaDONE 30 MG PO SCH (06:21)
[2021-12-28] MEDS: PRENATAL VITAMINS W/ FOLIC ACID TABLET (FP) PO SCH (09:28)
[2021-12-28] MEDS: NADOLOL 20 MG TABLET (FP) PO SCH (09:28)
[2021-12-28] MEDS: PANTOPRAZOLE 20 MG TABLET PO SCH (09:28)
[2021-12-28] MEDS: BACITRACIN 0.9 GM PACKET TP SCH ×2 (09:28→21:50)
[2021-12-28] MEDS: HYDROCHLOROTHIAZIDE 25 MG TABLET (FP) PO SCH (09:29)
[2021-12-28] MEDS: MELATONIN 5 MG TABLETS PO SCH (21:50)
[2021-12-28] MEDS: THIAMINE HCL 100 MG TABLET (FP) PO SCH (21:51)
[2021-12-28] MEDS: hydrOXYzine PAMOATE 25 MG CAPSULE (FP) PO PRN (21:52)
[2021-12-29] MEDS ORDERED: methaDONE HCL 10 MG TABLET ONE (04:28)
[2021-12-29] MEDS ORDERED: methaDONE HCL 40 MG DISPERSABLE TABLET ONE (04:28)
[2021-12-29] MEDS: LACTULOSE 20 GM/30 ML UDC (FOR ORAL USE ONLY) PO SCH (06:10)
[2021-12-29] MEDS: methaDONE 40 MG, methaDONE 30 MG PO SCH (06:10)
[2021-12-29 06:36] VITALS: PULSE 63; TEMP 96.9
[2021-12-29 11:15] VITALS: BP 108/71
== END 2021-12-29 09:48 | disposition home or self-care (01) | DRG 772 ==
LOC: YASAS 12:42 → Y3E 12:43
PROVIDERS: ADMIT Allergy & Immunology; ATTEND Allergy & Immunology
PROC: HZ42ZZZ Group Counseling for Substance Abuse Treatment, Cognitive-Behavioral (ICD-10-PCS; principal; 2021-12-18)
DX: F10.20 Alcohol dependence, uncomplicated (principal); F11.20 Opioid dependence, uncomplicated; F17.210 Nicotine dependence, cigarettes, uncomplicated; E87.6 Hypokalemia; E11.9 Type 2 diabetes mellitus without complications; Z79.4 Long term (current) use of insulin; I10 Essential (primary) hypertension; N40.0 Benign prostatic hyperplasia without lower urinary tract symptoms; B18.2 Chronic viral hepatitis C; Z99.89 Dependence on other enabling machines and devices
CPT/HCPCS: 36415; 80053; 82140; C9803-CS; U0003; U0005

== ENCOUNTER 2022-11-20 17:36 | Inpatient (IN) | payer OTHER ==
[2022-11-20 18:25] VITALS: BMI 40.8
[2022-11-20] MEDS ORDERED: IBUPROFEN 400 MG TABLET (FP) PO PRN (22:47)
[2022-11-20] MEDS ORDERED: DICYCLOMINE HCL 10 MG CAPSULE PO PRN (22:47)
[2022-11-20] MEDS ORDERED: POLYETHYLENE GLYCOL (HEALTHYLAX) 3350 17 GM PACKET PO PRN (22:47)
[2022-11-20] MEDS ORDERED: BENZOCAINE/MENTHOL (CHLORASEPTIC ) LOZENGE MM PRN (22:47)
[2022-11-20] MEDS ORDERED: hydrOXYzine PAMOATE 25 MG CAPSULE (FP) PO PRN (22:47)
[2022-11-20] MEDS ORDERED: IBUPROFEN 600 MG TABLET (FP) PO PRN (22:47)
[2022-11-20] MEDS ORDERED: BISMUTH SUBSALICYLATE 524 MG/30 ML PO PRN (22:47)
[2022-11-20] MEDS ORDERED: guaiFENesin 200 MG/10 ML 10 ML UNIT-DOSE CUPS PO PRN (22:47)
[2022-11-20] MEDS ORDERED: MELATONIN 5 MG TABLETS PO PRN (22:47)
[2022-11-20] MEDS ORDERED: P-EPHED 60MG/TRIPROLIDI 2.5MG TABLET PO PRN (22:47)
[2022-11-20] MEDS ORDERED: ONDANSETRON *ODT* 4 MG TABLET SL PRN (22:47)
[2022-11-20] MEDS ORDERED: MAGNESIUM HYDROX 2400MG/30ML ORAL SUSPENSION 30 ML CUP PO PRN (22:47)
[2022-11-20] MEDS ORDERED: ACETAMINOPHEN 325 MG TABLET (FP) PO PRN ×2 (22:47)
[2022-11-20] MEDS ORDERED: MAG HYDROX/AL HYDROX/SIMETH 30 ML UNIT-DOSE CUP PO PRN (22:47)
[2022-11-20] MEDS ORDERED: LOPERAMIDE HCL 2 MG CAPSULE PO PRN (22:47)
[2022-11-20] MEDS ORDERED: diazePAM 5 MG TABLET PO PRN (22:49)
[2022-11-20] MEDS ORDERED: diazePAM 5 MG TABLET ONE (23:09)
[2022-11-20] MEDS: diazePAM 5 MG TABLET PO SCH (23:12)
[2022-11-21] MEDS: CEPHALEXIN MONOHYDRATE 500 MG CAPSULE (UD) PO SCH ×3 (01:24→22:28)
[2022-11-21] MEDS: diazePAM 5 MG TABLET PO SCH ×4 (05:30→22:28)
[2022-11-21] MEDS: HYDROCHLOROTHIAZIDE 25 MG TABLET (FP) PO SCH (10:51)
[2022-11-21] MEDS: PRENATAL VITAMINS W/ FOLIC ACID TABLET (FP) PO SCH (10:52)
[2022-11-21 11:24] LABS: HEMATOCRIT 38.3 % (35.4-49); HEMOGLOBIN 12.2 GM/dL (11.7-16.9); MCH 31.1 pg (25.7-33.7); MCHC 31.9 g/dl (32.0-35.9); MEAN CELL VOLUME 97.6 fl (80-96); MEAN PLT VOLUME 9.7 fl (7.5-11.1); PLATELET COUNT 49 10^3/uL (134-434); RBC 3.93 M/mm3 (4.00-5.60); RDW 21.8 % (11.9-15.9); WHITE BLOOD COUNT 3.1 K/mm3 (4.0-10.0)
[2022-11-21 11:30] LABS: BLOOD UREA NITROGEN 3.2 mg/dL (7-18)
[2022-11-21 11:32] LABS: CREATININE 0.7 mg/dL (0.55-1.3)
[2022-11-21 11:34] LABS: BILIRUBIN,TOTAL 1.9 mg/dL (0.2-1); TOT PROT 8.6 g/dl (6.4-8.2)
[2022-11-21] MEDS: methaDONE HCL 40 MG DISPERSABLE TABLET PO SCH (13:23)
[2022-11-21] MEDS: ALBUTEROL SO4 HFA INHALER IH PRN ×2 (17:58→22:30)
[2022-11-21] MEDS: THIAMINE HCL 100 MG TABLET (FP) PO SCH (22:28)
[2022-11-22] MEDS ORDERED: LORazepam 1 MG TABLET PO PRN (00:25)
[2022-11-22] MEDS: LORazepam 1 MG TABLET PO SCH ×4 (06:00→22:37)
[2022-11-22] MEDS: methaDONE HCL 40 MG DISPERSABLE TABLET PO SCH (06:00)
[2022-11-22] MEDS ORDERED: diazePAM 5 MG TABLET PO SCH (06:00)
[2022-11-22] MEDS: HYDROCHLOROTHIAZIDE 25 MG TABLET (FP) PO SCH (10:57)
[2022-11-22] MEDS: CEPHALEXIN MONOHYDRATE 500 MG CAPSULE (UD) PO SCH ×2 (10:57→22:35)
[2022-11-22] MEDS: PRENATAL VITAMINS W/ FOLIC ACID TABLET (FP) PO SCH (10:57)
[2022-11-22] MEDS: NADOLOL 20 MG TABLET (FP) PO SCH (14:48)
[2022-11-22] MEDS ORDERED: POTASSIUM CHLORIDE ORAL LIQUID 20 MEQ/15 ML PO ONE ×2 (22:00)
[2022-11-22] MEDS: THIAMINE HCL 100 MG TABLET (FP) PO SCH (22:35)
[2022-11-23] MEDS: LORazepam 0.5 MG TABLET PO SCH ×3 (05:55→17:20)
[2022-11-23] MEDS: methaDONE HCL 40 MG DISPERSABLE TABLET PO SCH (05:55)
[2022-11-23] MEDS ORDERED: diazePAM 5 MG TABLET PO SCH (06:00)
[2022-11-23] MEDS: NADOLOL 20 MG TABLET (FP) PO SCH (10:53)
[2022-11-23] MEDS: CEPHALEXIN MONOHYDRATE 500 MG CAPSULE (UD) PO SCH (10:53)
[2022-11-23] MEDS: HYDROCHLOROTHIAZIDE 25 MG TABLET (FP) PO SCH (10:53)
[2022-11-23] MEDS: PRENATAL VITAMINS W/ FOLIC ACID TABLET (FP) PO SCH (10:53)
[2022-11-23 13:04] VITALS: TEMP 97.3
[2022-11-23 17:35] VITALS: BP 114/56; PULSE 78; RESP 18
[2022-11-23] MEDS ORDERED: POTASSIUM CHLORIDE ORAL LIQUID 20 MEQ/15 ML PO ONE (22:00)
[2022-11-24] MEDS ORDERED: LORazepam 0.5 MG TABLET PO PRN
[2022-11-24] MEDS ORDERED: LORazepam 0.5 MG TABLET PO ONE (05:00)
[2022-11-24] MEDS ORDERED: diazePAM 5 MG TABLET PO ONE (06:00)
== END 2022-11-23 19:58 | disposition other institution (70) | DRG 773 ==
LOC: YASAS 17:36 → Y3N 23:06
PROVIDERS: ADMIT Allergy & Immunology; ATTEND Surgery
PROC: HZ2ZZZZ Detoxification Services for Substance Abuse Treatment (ICD-10-PCS; principal; 2022-11-20)
DX: F10.230 Alcohol dependence with withdrawal, uncomplicated (principal); F11.20 Opioid dependence, uncomplicated; F13.20 Sedative, hypnotic or anxiolytic dependence, uncomplicated; I11.0 Hypertensive heart disease with heart failure; I50.9 Heart failure, unspecified; K21.9 Gastro-esophageal reflux disease without esophagitis; E66.01 Morbid (severe) obesity due to excess calories; Z68.41 Body mass index [BMI] 40.0-44.9, adult; Z87.891 Personal history of nicotine dependence
CPT/HCPCS: 36415; 80053; 82962; 85027; 86780; 99281-25; C9803-CS; Q0162; U0003; U0005

== ENCOUNTER 2022-11-23 20:07 | Inpatient (IN) | payer OTHER ==
[2022-11-23] MEDS ORDERED: MAGNESIUM HYDROX 2400MG/30ML ORAL SUSPENSION 30 ML CUP PO PRN (21:03)
[2022-11-23] MEDS ORDERED: NICOTINE 10 MG CARTRIDGE (INHALER) IH PRN (21:03)
[2022-11-23] MEDS ORDERED: LOPERAMIDE HCL 2 MG CAPSULE PO PRN (21:03)
[2022-11-23] MEDS ORDERED: BENZOCAINE/MENTHOL (CHLORASEPTIC ) LOZENGE MM PRN (21:03)
[2022-11-23] MEDS ORDERED: MAG HYDROX/AL HYDROX/SIMETH 30 ML UNIT-DOSE CUP PO PRN (21:03)
[2022-11-23] MEDS ORDERED: POLYETHYLENE GLYCOL (HEALTHYLAX) 3350 17 GM PACKET PO PRN (21:03)
[2022-11-23] MEDS ORDERED: guaiFENesin 200 MG/10 ML 10 ML UNIT-DOSE CUPS PO PRN (21:03)
[2022-11-23] MEDS ORDERED: ACETAMINOPHEN 325 MG TABLET (FP) PO PRN (21:03)
[2022-11-23] MEDS ORDERED: P-EPHED 60MG/TRIPROLIDI 2.5MG TABLET PO PRN (21:03)
[2022-11-23] MEDS: THIAMINE HCL 100 MG TABLET (FP) PO SCH (22:00)
[2022-11-23] MEDS: MELATONIN 5 MG TABLETS PO SCH (22:00)
[2022-11-24] MEDS: methaDONE HCL 40 MG DISPERSABLE TABLET PO SCH (06:24)
[2022-11-24] MEDS: PRENATAL VITAMINS W/ FOLIC ACID TABLET (FP) PO SCH (09:46)
[2022-11-24] MEDS: NICOTINE 7 MG/24 HOURS TOPICAL PATCH TD SCH (09:46)
[2022-11-24] MEDS: MELATONIN 5 MG TABLETS PO SCH (22:15)
[2022-11-24] MEDS: THIAMINE HCL 100 MG TABLET (FP) PO SCH (22:15)
[2022-11-25] MEDS: methaDONE HCL 40 MG DISPERSABLE TABLET PO SCH (06:33)
[2022-11-25] MEDS: IBUPROFEN 400 MG TABLET (FP) PO PRN (06:34)
[2022-11-25] MEDS: PRENATAL VITAMINS W/ FOLIC ACID TABLET (FP) PO SCH (10:39)
[2022-11-25] MEDS: NICOTINE 7 MG/24 HOURS TOPICAL PATCH TD SCH (10:39)
[2022-11-25] MEDS: MELATONIN 5 MG TABLETS PO SCH (21:51)
[2022-11-25] MEDS: THIAMINE HCL 100 MG TABLET (FP) PO SCH (21:51)
[2022-11-26] MEDS: methaDONE HCL 40 MG DISPERSABLE TABLET PO SCH (06:20)
[2022-11-26] MEDS ORDERED: NICOTINE 7 MG/24 HOURS TOPICAL PATCH TD PRN (09:59)
[2022-11-26] MEDS: PRENATAL VITAMINS W/ FOLIC ACID TABLET (FP) PO SCH (10:05)
[2022-11-26] MEDS: IBUPROFEN 400 MG TABLET (FP) PO PRN ×2 (10:06→21:19)
[2022-11-26] MEDS ORDERED: ALBUTEROL SO4 HFA INHALER IH PRN (12:00)
[2022-11-26] MEDS ORDERED: ALBUTEROL SO4 HFA INHALER IH SCH (12:00)
[2022-11-26] MEDS: THIAMINE HCL 100 MG TABLET (FP) PO SCH (21:18)
[2022-11-26] MEDS: MELATONIN 5 MG TABLETS PO SCH (21:18)
[2022-11-27] MEDS: methaDONE HCL 40 MG DISPERSABLE TABLET PO SCH (06:21)
[2022-11-27] MEDS: PRENATAL VITAMINS W/ FOLIC ACID TABLET (FP) PO SCH (10:09)
[2022-11-27] MEDS: IBUPROFEN 400 MG TABLET (FP) PO PRN (10:11)
[2022-11-27] MEDS: GABAPENTIN 300 MG CAPSULE PO PRN ×2 (10:13→21:25)
[2022-11-27] MEDS: THIAMINE HCL 100 MG TABLET (FP) PO SCH (21:25)
[2022-11-27] MEDS: MELATONIN 5 MG TABLETS PO SCH (21:25)
[2022-11-28] MEDS: methaDONE HCL 40 MG DISPERSABLE TABLET PO SCH (06:08)
[2022-11-28] MEDS: PRENATAL VITAMINS W/ FOLIC ACID TABLET (FP) PO SCH (09:59)
[2022-11-28] MEDS: GABAPENTIN 300 MG CAPSULE PO PRN ×2 (10:00→21:18)
[2022-11-28] MEDS: IBUPROFEN 400 MG TABLET (FP) PO PRN (13:59)
[2022-11-28] MEDS ORDERED: LIDOCAINE 5% TOPICAL PATCH TP PRN (14:09)
[2022-11-28] MEDS: MELATONIN 5 MG TABLETS PO SCH (21:18)
[2022-11-28] MEDS: THIAMINE HCL 100 MG TABLET (FP) PO SCH (21:18)
[2022-11-28] MEDS: LIDOCAINE PATCH REMOVAL MC SCH (21:18)
[2022-11-29] MEDS: methaDONE HCL 40 MG DISPERSABLE TABLET PO SCH (06:13)
[2022-11-29] MEDS: IBUPROFEN 400 MG TABLET (FP) PO PRN (06:15)
[2022-11-29 06:59] VITALS: RESP 18
[2022-11-29] MEDS: PRENATAL VITAMINS W/ FOLIC ACID TABLET (FP) PO SCH (09:56)
[2022-11-29] MEDS: GABAPENTIN 300 MG CAPSULE PO PRN ×2 (09:56→21:25)
[2022-11-29] MEDS: MELATONIN 5 MG TABLETS PO SCH (21:25)
[2022-11-29] MEDS: THIAMINE HCL 100 MG TABLET (FP) PO SCH (21:25)
[2022-11-29] MEDS: LIDOCAINE PATCH REMOVAL MC SCH (21:25)
[2022-11-30] MEDS: IBUPROFEN 400 MG TABLET (FP) PO PRN (06:13)
[2022-11-30] MEDS: methaDONE HCL 40 MG DISPERSABLE TABLET PO SCH (06:14)
[2022-11-30] MEDS: PRENATAL VITAMINS W/ FOLIC ACID TABLET (FP) PO SCH (09:52)
[2022-11-30] MEDS: GABAPENTIN 300 MG CAPSULE PO PRN ×2 (09:54→21:16)
[2022-11-30] MEDS: LIDOCAINE PATCH REMOVAL MC SCH (21:15)
[2022-11-30] MEDS: MELATONIN 5 MG TABLETS PO SCH (21:15)
[2022-11-30] MEDS: THIAMINE HCL 100 MG TABLET (FP) PO SCH (21:15)
[2022-12-01] MEDS: methaDONE HCL 40 MG DISPERSABLE TABLET PO SCH (06:03)
[2022-12-01] MEDS: PRENATAL VITAMINS W/ FOLIC ACID TABLET (FP) PO SCH (09:47)
[2022-12-01] MEDS: IBUPROFEN 400 MG TABLET (FP) PO PRN (09:49)
[2022-12-01] MEDS: GABAPENTIN 300 MG CAPSULE PO PRN ×2 (09:49→21:38)
[2022-12-01] MEDS: MELATONIN 5 MG TABLETS PO SCH (21:38)
[2022-12-01] MEDS: THIAMINE HCL 100 MG TABLET (FP) PO SCH (21:38)
[2022-12-01] MEDS: LIDOCAINE PATCH REMOVAL MC SCH (21:39)
[2022-12-02] MEDS: methaDONE HCL 40 MG DISPERSABLE TABLET PO SCH (06:10)
[2022-12-02] MEDS: IBUPROFEN 400 MG TABLET (FP) PO PRN (06:11)
[2022-12-02] MEDS: PRENATAL VITAMINS W/ FOLIC ACID TABLET (FP) PO SCH (10:35)
[2022-12-02] MEDS: GABAPENTIN 300 MG CAPSULE PO PRN ×2 (10:36→21:23)
[2022-12-02] MEDS: MELATONIN 5 MG TABLETS PO SCH (21:22)
[2022-12-02] MEDS: THIAMINE HCL 100 MG TABLET (FP) PO SCH (21:22)
[2022-12-02] MEDS: LIDOCAINE PATCH REMOVAL MC SCH (22:21)
[2022-12-03] MEDS: methaDONE HCL 40 MG DISPERSABLE TABLET PO SCH (06:19)
[2022-12-03] MEDS: IBUPROFEN 400 MG TABLET (FP) PO PRN (06:21)
[2022-12-03 07:23] VITALS: BP 138/72; PULSE 80; TEMP 98.2
[2022-12-03] MEDS: PRENATAL VITAMINS W/ FOLIC ACID TABLET (FP) PO SCH (10:00)
== END 2022-12-03 11:03 | disposition home or self-care (01) | DRG 772 ==
LOC: YASAS 20:07 → Y3W 20:08
PROVIDERS: ADMIT Allergy & Immunology; ATTEND Allergy & Immunology
PROC: HZ42ZZZ Group Counseling for Substance Abuse Treatment, Cognitive-Behavioral (ICD-10-PCS; principal; 2022-11-23)
DX: F10.20 Alcohol dependence, uncomplicated (principal); F11.20 Opioid dependence, uncomplicated; I10 Essential (primary) hypertension; E11.65 Type 2 diabetes mellitus with hyperglycemia; Z79.4 Long term (current) use of insulin; M54.50 Low back pain, unspecified; G89.29 Other chronic pain; M79.605 Pain in left leg; R26.89 Other abnormalities of gait and mobility; Z99.89 Dependence on other enabling machines and devices; Z87.891 Personal history of nicotine dependence

== ENCOUNTER 2023-01-24 14:30 | Inpatient (IN) | payer OTHER ==
[2023-01-24 15:10] VITALS: BMI 41.5
[2023-01-24] MEDS ORDERED: IBUPROFEN 400 MG TABLET (FP) PO PRN (17:15)
[2023-01-24] MEDS ORDERED: NALOXONE HCL 0.4 MG/ML VIAL IM PRN (17:15)
[2023-01-24] MEDS ORDERED: NICOTINE POLACRILEX 2 MG GUM BUC PRN (17:15)
[2023-01-24] MEDS ORDERED: MAG HYDROX/AL HYDROX/SIMETH 30 ML UNIT-DOSE CUP PO PRN (17:15)
[2023-01-24] MEDS ORDERED: NICOTINE 10 MG CARTRIDGE (INHALER) IH PRN (17:15)
[2023-01-24] MEDS ORDERED: NALOXONE HCL (KLOXXADO) 8 MG SPRAY NS PRN (17:15)
[2023-01-24] MEDS ORDERED: LOPERAMIDE HCL 2 MG CAPSULE PO PRN (17:15)
[2023-01-24] MEDS ORDERED: BENZONATATE 200 MG CAPSULE PO PRN (17:15)
[2023-01-24] MEDS ORDERED: guaiFENesin 600 MG TABLET.ER (FP) PO PRN (17:15)
[2023-01-24] MEDS ORDERED: BISMUTH SUBSALICYLATE 524 MG/30 ML PO PRN (17:15)
[2023-01-24] MEDS ORDERED: ACETAMINOPHEN 325 MG TABLET (FP) PO PRN (17:15)
[2023-01-24] MEDS ORDERED: DICYCLOMINE HCL 10 MG CAPSULE PO PRN (17:15)
[2023-01-24] MEDS ORDERED: MAGNESIUM HYDROX 2400MG/30ML ORAL SUSPENSION 30 ML CUP PO PRN (17:15)
[2023-01-24] MEDS ORDERED: POLYETHYLENE GLYCOL (HEALTHYLAX) 3350 17 GM PACKET PO PRN (17:15)
[2023-01-24] MEDS ORDERED: ONDANSETRON *ODT* 4 MG TABLET SL PRN (17:15)
[2023-01-24] MEDS ORDERED: IBUPROFEN 600 MG TABLET (FP) PO PRN (17:15)
[2023-01-24] MEDS ORDERED: BENZOCAINE/MENTHOL (CHLORASEPTIC ) LOZENGE MM PRN (17:15)
[2023-01-24] MEDS: hydrOXYzine PAMOATE 25 MG CAPSULE (FP) PO PRN (22:23)
[2023-01-24] MEDS: METHOCARBAMOL 500 MG TABLET PO PRN (22:23)
[2023-01-24] MEDS: THIAMINE HCL 100 MG TABLET (FP) PO SCH (22:23)
[2023-01-24] MEDS: MELATONIN 5 MG TABLETS PO SCH (22:23)
[2023-01-25] MEDS ORDERED: LORazepam 1 MG TABLET PO PRN (09:40)
[2023-01-25] MEDS ORDERED: GABAPENTIN 300 MG CAPSULE PO PRN (09:44)
[2023-01-25] MEDS ORDERED: ALBUTEROL SO4 HFA INHALER IH PRN (09:44)
[2023-01-25] MEDS ORDERED: LORazepam 2 MG TABLET PO ONE (10:15)
[2023-01-25] MEDS: PRENATAL VITAMINS W/ FOLIC ACID TABLET (FP) PO SCH (10:34)
[2023-01-25] MEDS: HYDROCHLOROTHIAZIDE 25 MG TABLET (FP) PO SCH (10:34)
[2023-01-25] MEDS: NADOLOL 20 MG TABLET (FP) PO SCH (10:34)
[2023-01-25] MEDS: methaDONE HCL 40 MG DISPERSABLE TABLET PO SCH (10:35)
[2023-01-25 13:35] LABS: HEMATOCRIT 38.6 % (35.4-49); HEMOGLOBIN 12.5 GM/dL (11.7-16.9); MCH 33.4 pg (25.7-33.7); MCHC 32.4 g/dl (32.0-35.9); MEAN CELL VOLUME 103.1 fl (80-96); MEAN PLT VOLUME 10.4 fl (7.5-11.1); PLATELET COUNT 77 10^3/uL (134-434); RBC 3.74 M/mm3 (4.00-5.60); RDW 16.9 % (11.9-15.9); WHITE BLOOD COUNT 3.5 K/mm3 (4.0-10.0)
[2023-01-25 13:46] LABS: POTASSIUM 3.8 mmol/L (3.5-5.1)
[2023-01-25 13:49] LABS: ALBUMIN 2.9 g/dl (3.4-5.0); BLOOD UREA NITROGEN 5.2 mg/dL (7-18); MAGNESIUM 1.9 mg/dL (1.8-2.4)
[2023-01-25 13:52] LABS: CREATININE 0.6 mg/dL (0.55-1.3)
[2023-01-25 13:53] LABS: BILIRUBIN,TOTAL 1.9 mg/dL (0.2-1)
[2023-01-25 13:54] LABS: PHOSPHOROUS 2.8 mg/dL (2.5-4.9)
[2023-01-25] MEDS: LORazepam 2 MG TABLET PO SCH ×2 (17:48→22:45)
[2023-01-25] MEDS: METHOCARBAMOL 500 MG TABLET PO PRN (22:45)
[2023-01-25] MEDS: hydrOXYzine PAMOATE 25 MG CAPSULE (FP) PO PRN (22:45)
[2023-01-25] MEDS: MELATONIN 5 MG TABLETS PO SCH (22:45)
[2023-01-25] MEDS: THIAMINE HCL 100 MG TABLET (FP) PO SCH (22:45)
[2023-01-26] MEDS: methaDONE HCL 40 MG DISPERSABLE TABLET PO SCH (05:57)
[2023-01-26] MEDS: LORazepam 2 MG TABLET PO SCH ×4 (05:57→22:23)
[2023-01-26 09:43] LABS: BASO % 0.7 % (0-2.0); EOS % 1.6 % (0-4.5); HEMATOCRIT 41.5 % (35.4-49); HEMOGLOBIN 13.9 GM/dL (11.7-16.9); MCH 33.8 pg (25.7-33.7); MCHC 33.4 g/dl (32.0-35.9); MEAN CELL VOLUME 101.2 fl (80-96); MEAN PLT VOLUME 10.1 fl (7.5-11.1); NEUT % 49.7 % (42.8-82.8); PLATELET COUNT 82 10^3/uL (134-434); RDW 16.9 % (11.9-15.9); WHITE BLOOD COUNT 4.4 K/mm3 (4.0-10.0)
[2023-01-26 09:44] LABS: POTASSIUM 3.6 mmol/L (3.5-5.1)
[2023-01-26 09:57] LABS: ALBUMIN 2.8 g/dl (3.4-5.0); CALCIUM 9.2 mg/dL (8.5-10.1)
[2023-01-26 09:58] LABS: BLOOD UREA NITROGEN 6.5 mg/dL (7-18)
[2023-01-26 10:00] LABS: CREATININE 0.6 mg/dL (0.55-1.3)
[2023-01-26 10:02] LABS: BILIRUBIN,TOTAL 2.6 mg/dL (0.2-1); TOT PROT 8.3 g/dl (6.4-8.2)
[2023-01-26] MEDS: HYDROCHLOROTHIAZIDE 25 MG TABLET (FP) PO SCH (10:18)
[2023-01-26] MEDS: NADOLOL 20 MG TABLET (FP) PO SCH (10:18)
[2023-01-26] MEDS: PRENATAL VITAMINS W/ FOLIC ACID TABLET (FP) PO SCH (10:18)
[2023-01-26] MEDS: MELATONIN 5 MG TABLETS PO SCH (22:23)
[2023-01-26] MEDS: METHOCARBAMOL 500 MG TABLET PO PRN (22:23)
[2023-01-26] MEDS: THIAMINE HCL 100 MG TABLET (FP) PO SCH (22:23)
[2023-01-27] MEDS: methaDONE HCL 40 MG DISPERSABLE TABLET PO SCH (05:41)
[2023-01-27] MEDS: LORazepam 1 MG TABLET PO SCH ×4 (05:41→22:25)
[2023-01-27] MEDS: HYDROCHLOROTHIAZIDE 25 MG TABLET (FP) PO SCH (10:10)
[2023-01-27] MEDS: PRENATAL VITAMINS W/ FOLIC ACID TABLET (FP) PO SCH (10:10)
[2023-01-27] MEDS: NADOLOL 20 MG TABLET (FP) PO SCH (10:11)
[2023-01-27] MEDS: THIAMINE HCL 100 MG TABLET (FP) PO SCH (22:25)
[2023-01-27] MEDS: MELATONIN 5 MG TABLETS PO SCH (22:25)
[2023-01-28] MEDS ORDERED: LORazepam 0.5 MG TABLET PO PRN
[2023-01-28] MEDS: methaDONE HCL 40 MG DISPERSABLE TABLET PO SCH (05:42)
[2023-01-28] MEDS: LORazepam 0.5 MG TABLET PO SCH ×4 (05:42→22:39)
[2023-01-28] MEDS: PRENATAL VITAMINS W/ FOLIC ACID TABLET (FP) PO SCH (10:29)
[2023-01-28] MEDS: NADOLOL 20 MG TABLET (FP) PO SCH (10:29)
[2023-01-28] MEDS: HYDROCHLOROTHIAZIDE 25 MG TABLET (FP) PO SCH (10:29)
[2023-01-28] MEDS: THIAMINE HCL 100 MG TABLET (FP) PO SCH (22:38)
[2023-01-28] MEDS: METHOCARBAMOL 500 MG TABLET PO PRN (22:38)
[2023-01-28] MEDS: MELATONIN 5 MG TABLETS PO SCH (22:38)
[2023-01-29] MEDS ORDERED: LORazepam 0.5 MG TABLET PO ONE (05:00)
[2023-01-29] MEDS: methaDONE HCL 40 MG DISPERSABLE TABLET PO SCH (05:19)
[2023-01-29 06:39] VITALS: PULSE 74
[2023-01-29 08:59] VITALS: BP 103/65; RESP 18; TEMP 97.8
[2023-01-29] MEDS: NADOLOL 20 MG TABLET (FP) PO SCH (10:26)
[2023-01-29] MEDS: PRENATAL VITAMINS W/ FOLIC ACID TABLET (FP) PO SCH (10:26)
[2023-01-29] MEDS: HYDROCHLOROTHIAZIDE 25 MG TABLET (FP) PO SCH (10:26)
== END 2023-01-29 10:28 | disposition home or self-care (01) | DRG 773 ==
LOC: YASAS 14:30 → Y3N 18:49
PROVIDERS: ADMIT Allergy & Immunology; ATTEND Surgery
PROC: HZ2ZZZZ Detoxification Services for Substance Abuse Treatment (ICD-10-PCS; principal; 2023-01-24)
DX: F11.23 Opioid dependence with withdrawal (principal); F10.230 Alcohol dependence with withdrawal, uncomplicated; F17.210 Nicotine dependence, cigarettes, uncomplicated; I10 Essential (primary) hypertension; K21.9 Gastro-esophageal reflux disease without esophagitis; M54.50 Low back pain, unspecified; G89.29 Other chronic pain; N40.0 Benign prostatic hyperplasia without lower urinary tract symptoms; Z86.79 Personal history of other diseases of the circulatory system
CPT/HCPCS: 36415; 71046-TC-FY; 80053; 83735; 84100; 85025; 85027; 86780; C9803-CS; U0003; U0005

== ENCOUNTER 2023-02-19 11:04 | Inpatient (IN) | payer OTHER ==
[2023-02-19 12:20] VITALS: BMI 39.1
[2023-02-19] MEDS ORDERED: NALOXONE HCL 0.4 MG/ML VIAL IM PRN (12:41)
[2023-02-19] MEDS ORDERED: POLYETHYLENE GLYCOL (HEALTHYLAX) 3350 17 GM PACKET PO PRN (12:41)
[2023-02-19] MEDS ORDERED: IBUPROFEN 400 MG TABLET (FP) PO PRN (12:41)
[2023-02-19] MEDS ORDERED: MAG HYDROX/AL HYDROX/SIMETH 30 ML UNIT-DOSE CUP PO PRN (12:41)
[2023-02-19] MEDS ORDERED: LOPERAMIDE HCL 2 MG CAPSULE PO PRN (12:41)
[2023-02-19] MEDS ORDERED: LORazepam 1 MG TABLET PO PRN (12:41)
[2023-02-19] MEDS ORDERED: BENZOCAINE/MENTHOL (CHLORASEPTIC ) LOZENGE MM PRN (12:41)
[2023-02-19] MEDS ORDERED: MAGNESIUM HYDROX 2400MG/30ML ORAL SUSPENSION 30 ML CUP PO PRN (12:41)
[2023-02-19] MEDS ORDERED: IBUPROFEN 600 MG TABLET (FP) PO PRN (12:41)
[2023-02-19] MEDS ORDERED: ACETAMINOPHEN 325 MG TABLET (FP) PO PRN (12:41)
[2023-02-19] MEDS ORDERED: BISMUTH SUBSALICYLATE 524 MG/30 ML PO PRN (12:41)
[2023-02-19] MEDS ORDERED: BENZONATATE 200 MG CAPSULE PO PRN (12:41)
[2023-02-19] MEDS ORDERED: DICYCLOMINE HCL 10 MG CAPSULE PO PRN (12:41)
[2023-02-19] MEDS ORDERED: guaiFENesin 600 MG TABLET.ER (FP) PO PRN (12:41)
[2023-02-19] MEDS ORDERED: NALOXONE HCL (KLOXXADO) 8 MG SPRAY NS PRN (12:41)
[2023-02-19] MEDS ORDERED: ONDANSETRON *ODT* 4 MG TABLET SL PRN (12:41)
[2023-02-19] MEDS ORDERED: NICOTINE 10 MG CARTRIDGE (INHALER) IH PRN (12:41)
[2023-02-19] MEDS ORDERED: GABAPENTIN 300 MG CAPSULE PO PRN (12:47)
[2023-02-19] MEDS ORDERED: ALBUTEROL SO4 HFA INHALER IH PRN (12:47)
[2023-02-19] MEDS: PRENATAL VITAMINS W/ FOLIC ACID TABLET (FP) PO SCH (15:32)
[2023-02-19] MEDS: NICOTINE 14 MG/24 HOURS TOPICAL PATCH TD SCH (15:32)
[2023-02-19 16:52] LABS: CHLORIDE 100 mmol/L (98-107); SODIUM 142 mmol/L (136-145)
[2023-02-19 16:53] LABS: HEMATOCRIT 41.2 % (35.4-49); HEMOGLOBIN 13.6 GM/dL (11.7-16.9); MCH 33.7 pg (25.7-33.7); MEAN CELL VOLUME 101.9 fl (80-96); MEAN PLT VOLUME 10.1 fl (7.5-11.1); PLATELET COUNT 77 10^3/uL (134-434); RBC 4.04 M/mm3 (4.00-5.60); WHITE BLOOD COUNT 4.5 K/mm3 (4.0-10.0)
[2023-02-19 16:54] LABS: ALBUMIN 3.2 g/dl (3.4-5.0); CALCIUM 8.5 mg/dL (8.5-10.1); CO2 36 mmol/L (21-32); GLUCOSE,RANDOM 101 mg/dL (74-106)
[2023-02-19 16:57] LABS: CREATININE 0.9 mg/dL (0.55-1.3); SGOT/AST 188 U/L (15-37)
[2023-02-19 16:58] LABS: SGPT/ALT 52 U/L (13-61)
[2023-02-19 16:59] LABS: BILIRUBIN,TOTAL 1.7 mg/dL (0.2-1); TOT PROT 8.9 g/dl (6.4-8.2)
[2023-02-19 17:00] LABS: ALK PHOS 125 U/L (45-117)
[2023-02-19 17:03] LABS: ANION GAP 5 MMOL/L (8-16); POTASSIUM 2.9 mmol/L (3.5-5.1)
[2023-02-19] MEDS ORDERED: POTASSIUM CHLORIDE TABS 20 MEQ TABLET.ER (FP) PO ONE (17:16)
[2023-02-19] MEDS: LORazepam 2 MG TABLET PO SCH ×2 (17:48→22:31)
[2023-02-19] MEDS ORDERED: PATIENT'S OWN MEDICATION (NON-FORMULARY) (Gabapentin [Gabapentin] 600 MG Tablet) PO SCH (22:00)
[2023-02-19] MEDS: GABAPENTIN 300 MG CAPSULE PO SCH (22:31)
[2023-02-19] MEDS: POTASSIUM CHLORIDE TABS 20 MEQ TABLET.ER (FP) PO SCH (22:31)
[2023-02-19] MEDS: THIAMINE HCL 100 MG TABLET (FP) PO SCH (22:31)
[2023-02-19] MEDS: MELATONIN 5 MG TABLETS PO SCH (22:32)
[2023-02-20] MEDS: LORazepam 2 MG TABLET PO SCH ×4 (05:56→22:43)
[2023-02-20] MEDS: methaDONE HCL 40 MG DISPERSABLE TABLET PO SCH (05:57)
[2023-02-20] MEDS: FUROSEMIDE 40 MG TABLET (FP) PO SCH ×2 (06:14→13:36)
[2023-02-20] MEDS: PANTOPRAZOLE 40 MG TABLET PO SCH (09:59)
[2023-02-20] MEDS: PRENATAL VITAMINS W/ FOLIC ACID TABLET (FP) PO SCH (09:59)
[2023-02-20] MEDS: NICOTINE 14 MG/24 HOURS TOPICAL PATCH TD SCH (10:00)
[2023-02-20] MEDS: HYDROCHLOROTHIAZIDE 25 MG TABLET (FP) PO SCH (10:00)
[2023-02-20] MEDS: GABAPENTIN 300 MG CAPSULE PO SCH ×2 (10:00→22:42)
[2023-02-20] MEDS: POTASSIUM CHLORIDE TABS 20 MEQ TABLET.ER (FP) PO SCH ×2 (10:00→22:41)
[2023-02-20] MEDS ORDERED: PATIENT'S OWN MEDICATION (NON-FORMULARY) (Omeprazole 20 MG Capsule.Dr) PO SCH (10:00)
[2023-02-20] MEDS: NADOLOL 20 MG TABLET (FP) PO SCH (11:26)
[2023-02-20] MEDS: THIAMINE HCL 100 MG TABLET (FP) PO SCH (22:42)
[2023-02-20] MEDS: MELATONIN 5 MG TABLETS PO SCH (22:49)
[2023-02-21] MEDS: LORazepam 1 MG TABLET PO SCH ×4 (06:20→22:57)
[2023-02-21] MEDS: FUROSEMIDE 40 MG TABLET (FP) PO SCH ×2 (06:20→13:23)
[2023-02-21] MEDS: methaDONE HCL 40 MG DISPERSABLE TABLET PO SCH (06:20)
[2023-02-21] MEDS: hydrOXYzine PAMOATE 25 MG CAPSULE (FP) PO PRN (10:55)
[2023-02-21] MEDS: METHOCARBAMOL 500 MG TABLET PO PRN (10:55)
[2023-02-21] MEDS: PRENATAL VITAMINS W/ FOLIC ACID TABLET (FP) PO SCH (10:55)
[2023-02-21] MEDS: HYDROCHLOROTHIAZIDE 25 MG TABLET (FP) PO SCH (10:55)
[2023-02-21] MEDS: PANTOPRAZOLE 40 MG TABLET PO SCH (10:55)
[2023-02-21] MEDS: NADOLOL 20 MG TABLET (FP) PO SCH (10:55)
[2023-02-21] MEDS: GABAPENTIN 300 MG CAPSULE PO SCH ×2 (10:55→22:57)
[2023-02-21] MEDS: NICOTINE 14 MG/24 HOURS TOPICAL PATCH TD SCH (10:57)
[2023-02-21] MEDS: THIAMINE HCL 100 MG TABLET (FP) PO SCH (22:56)
[2023-02-21] MEDS: MELATONIN 5 MG TABLETS PO SCH (22:57)
[2023-02-22] MEDS ORDERED: LORazepam 0.5 MG TABLET PO PRN
[2023-02-22] MEDS: LORazepam 0.5 MG TABLET PO SCH ×4 (05:28→23:03)
[2023-02-22] MEDS: FUROSEMIDE 40 MG TABLET (FP) PO SCH ×2 (05:29→13:18)
[2023-02-22] MEDS: methaDONE HCL 40 MG DISPERSABLE TABLET PO SCH (05:29)
[2023-02-22] MEDS: PANTOPRAZOLE 40 MG TABLET PO SCH (10:41)
[2023-02-22] MEDS: GABAPENTIN 300 MG CAPSULE PO SCH ×2 (10:41→23:02)
[2023-02-22] MEDS: NADOLOL 20 MG TABLET (FP) PO SCH (10:41)
[2023-02-22] MEDS: METHOCARBAMOL 500 MG TABLET PO PRN (10:42)
[2023-02-22] MEDS: hydrOXYzine PAMOATE 25 MG CAPSULE (FP) PO PRN (10:42)
[2023-02-22] MEDS: HYDROCHLOROTHIAZIDE 25 MG TABLET (FP) PO SCH (10:42)
[2023-02-22] MEDS: PRENATAL VITAMINS W/ FOLIC ACID TABLET (FP) PO SCH (10:43)
[2023-02-22] MEDS: NICOTINE 14 MG/24 HOURS TOPICAL PATCH TD SCH (10:43)
[2023-02-22] MEDS: THIAMINE HCL 100 MG TABLET (FP) PO SCH (23:02)
[2023-02-22] MEDS: MELATONIN 5 MG TABLETS PO SCH (23:18)
[2023-02-23] MEDS ORDERED: LORazepam 0.5 MG TABLET PO ONE (05:00)
[2023-02-23] MEDS: methaDONE HCL 40 MG DISPERSABLE TABLET PO SCH (06:13)
[2023-02-23] MEDS: FUROSEMIDE 40 MG TABLET (FP) PO SCH (06:14)
[2023-02-23 06:15] VITALS: RESP 16
[2023-02-23 09:29] VITALS: BP 90/59; PULSE 70; TEMP 97.5
[2023-02-23] MEDS: NADOLOL 20 MG TABLET (FP) PO SCH (09:58)
[2023-02-23] MEDS: NICOTINE 14 MG/24 HOURS TOPICAL PATCH TD SCH (09:58)
[2023-02-23] MEDS: PRENATAL VITAMINS W/ FOLIC ACID TABLET (FP) PO SCH (09:58)
[2023-02-23] MEDS: PANTOPRAZOLE 40 MG TABLET PO SCH (09:58)
[2023-02-23] MEDS: GABAPENTIN 300 MG CAPSULE PO SCH (09:58)
[2023-02-23] MEDS: HYDROCHLOROTHIAZIDE 25 MG TABLET (FP) PO SCH (09:58)
== END 2023-02-23 11:05 | disposition home or self-care (01) | DRG 773 ==
LOC: YASAS 11:04 → Y6N 12:58
PROVIDERS: ADMIT Allergy & Immunology; ATTEND Surgery
PROC: HZ2ZZZZ Detoxification Services for Substance Abuse Treatment (ICD-10-PCS; principal; 2023-02-19)
DX: F10.230 Alcohol dependence with withdrawal, uncomplicated (principal); F11.20 Opioid dependence, uncomplicated; F15.10 Other stimulant abuse, uncomplicated; F16.10 Hallucinogen abuse, uncomplicated; F17.210 Nicotine dependence, cigarettes, uncomplicated; F20.9 Schizophrenia, unspecified; I11.0 Hypertensive heart disease with heart failure; I50.9 Heart failure, unspecified; E87.6 Hypokalemia; E11.9 Type 2 diabetes mellitus without complications; Z79.4 Long term (current) use of insulin; N40.0 Benign prostatic hyperplasia without lower urinary tract symptoms; M54.50 Low back pain, unspecified; G89.29 Other chronic pain; R74.01 Elevation of levels of liver transaminase levels; Z99.89 Dependence on other enabling machines and devices
CPT/HCPCS: 36415; 80053; 82247; 84075; 84132; 84450; 85027; 86780; 87635; 87811; 93005; 93010

== ENCOUNTER 2023-12-10 14:56 | Inpatient (IN) | payer OTHER ==
[2023-12-10 15:57] VITALS: BMI 35.6
[2023-12-10] MEDS ORDERED: POLYETHYLENE GLYCOL (HEALTHYLAX) 3350 17 GM PACKET PO PRN (18:04)
[2023-12-10] MEDS ORDERED: LOPERAMIDE HCL 2 MG CAPSULE PO PRN (18:04)
[2023-12-10] MEDS ORDERED: BISMUTH SUBSALICYLATE 524 MG/30 ML PO PRN (18:04)
[2023-12-10] MEDS ORDERED: NALOXONE HCL (KLOXXADO) 8 MG SPRAY NS PRN (18:04)
[2023-12-10] MEDS ORDERED: ACETAMINOPHEN 325 MG TABLET (FP) PO PRN (18:04)
[2023-12-10] MEDS ORDERED: IBUPROFEN 600 MG TABLET (FP) PO PRN (18:04)
[2023-12-10] MEDS ORDERED: MAGNESIUM HYDROX 2400MG/30ML ORAL SUSPENSION 30 ML CUP PO PRN (18:04)
[2023-12-10] MEDS ORDERED: NICOTINE POLACRILEX 2 MG GUM BUC PRN (18:04)
[2023-12-10] MEDS ORDERED: BENZOCAINE/MENTHOL (CHLORASEPTIC ) LOZENGE MM PRN (18:04)
[2023-12-10] MEDS ORDERED: guaiFENesin 600 MG TABLET.ER (FP) PO PRN (18:04)
[2023-12-10] MEDS ORDERED: NALOXONE HCL 0.4 MG/ML VIAL IM PRN (18:04)
[2023-12-10] MEDS ORDERED: IBUPROFEN 400 MG TABLET (FP) PO PRN (18:04)
[2023-12-10] MEDS ORDERED: hydrOXYzine PAMOATE 25 MG CAPSULE (FP) PO PRN (18:04)
[2023-12-10] MEDS ORDERED: BENZONATATE 200 MG CAPSULE PO PRN (18:04)
[2023-12-10] MEDS ORDERED: ONDANSETRON *ODT* 4 MG TABLET SL PRN (18:04)
[2023-12-10] MEDS: LORazepam 1 MG TABLET PO PRN (20:18)
[2023-12-10] MEDS: METHOCARBAMOL 500 MG TABLET PO PRN (22:27)
[2023-12-10] MEDS: THIAMINE HCL 100 MG TABLET (FP) PO SCH (22:27)
[2023-12-10] MEDS: MELATONIN 5 MG TABLETS PO SCH (22:27)
[2023-12-10] MEDS: LORazepam 2 MG TABLET PO SCH (22:27)
[2023-12-11 09:00] LABS: HEMATOCRIT 32.2 % (35.4-49); HEMOGLOBIN 10.3 GM/dL (11.7-16.9); MCH 30.6 pg (25.7-33.7); MEAN CELL VOLUME 95.7 fl (80-96); PLATELET COUNT 46 10^3/uL (134-434); RBC 3.37 M/mm3 (4.00-5.60); RDW 21.9 % (11.9-15.9); WHITE BLOOD COUNT 2.9 K/mm3 (4.0-10.0)
[2023-12-11 09:28] LABS: POTASSIUM 3.9 mmol/L (3.5-5.1)
[2023-12-11 09:35] LABS: ALBUMIN 2.4 g/dl (3.4-5.0); BLOOD UREA NITROGEN 5.5 mg/dL (7-18)
[2023-12-11 09:38] LABS: CREATININE 0.5 mg/dL (0.55-1.3)
[2023-12-11 09:39] LABS: BILIRUBIN,TOTAL 2.5 mg/dL (0.2-1)
[2023-12-11 09:40] LABS: TOT PROT 7.7 g/dl (6.4-8.2)
[2023-12-11] MEDS: methaDONE HCL 40 MG DISPERSABLE TABLET PO SCH (09:50)
[2023-12-11] MEDS: PRENATAL VITAMINS W/ FOLIC ACID TABLET (FP) PO SCH (09:51)
[2023-12-12] MEDS: LORazepam 1 MG TABLET PO SCH (05:19)
[2023-12-12] MEDS: MAG HYDROX/AL HYDROX/SIMETH 30 ML UNIT-DOSE CUP PO PRN (12:35)
[2023-12-12] MEDS: HYDROCHLOROTHIAZIDE 25 MG TABLET (FP) PO SCH (13:55)
[2023-12-12] MEDS: ALBUTEROL SO4 HFA INHALER IH PRN (15:42)
[2023-12-12] MEDS: TAMSULOSIN HCL 0.4 MG CAP PO SCH (22:15)
[2023-12-12] MEDS: CARVEDILOL 3.125 MG TABLET (FP) PO SCH (22:15)
[2023-12-13] MEDS ORDERED: LORazepam 0.5 MG TABLET PO PRN
[2023-12-13] MEDS: LORazepam 0.5 MG TABLET PO SCH (06:00)
[2023-12-13] MEDS ORDERED: NADOLOL 20 MG TABLET (FP) PO SCH (10:00)
[2023-12-13 11:36] LABS: HEMATOCRIT 37.7 % (35.4-49); HEMOGLOBIN 12.2 GM/dL (11.7-16.9); MCH 30.8 pg (25.7-33.7); MCHC 32.3 g/dl (32.0-35.9); MEAN CELL VOLUME 95.4 fl (80-96); MEAN PLT VOLUME 10.4 fl (7.5-11.1); PLATELET COUNT 55 10^3/uL (134-434); RBC 3.95 M/mm3 (4.00-5.60); RDW 21.7 % (11.9-15.9); WHITE BLOOD COUNT 10.8 K/mm3 (4.0-10.0)
[2023-12-13 11:43] LABS: POTASSIUM 3.9 mmol/L (3.5-5.1)
[2023-12-13 12:02] LABS: BLOOD UREA NITROGEN 11.7 mg/dL (7-18)
[2023-12-13 12:05] LABS: CREATININE 0.9 mg/dL (0.55-1.3)
[2023-12-13 12:10] LABS: BILIRUBIN,TOTAL 5.2 mg/dL (0.2-1); CALCIUM 9.4 mg/dL (8.5-10.1)
[2023-12-13] MEDS: LACTULOSE 20 GM/30 ML UDC (FOR ORAL USE ONLY) PO SCH (17:30)
[2023-12-14] MEDS: LORazepam 0.5 MG TABLET PO ONE (05:51)
[2023-12-14 09:10] VITALS: RESP 17
[2023-12-14 12:12] VITALS: BP 105/63; PULSE 79; TEMP 98.4
== END 2023-12-14 12:11 | disposition short-term general hospital (02) | DRG 773 ==
LOC: YASAS 14:56 → Y3N 19:03
PROVIDERS: ADMIT Allergy & Immunology; ATTEND Surgery
PROC: HZ2ZZZZ Detoxification Services for Substance Abuse Treatment (ICD-10-PCS; principal; 2023-12-10)
DX: F11.23 Opioid dependence with withdrawal (principal); F10.230 Alcohol dependence with withdrawal, uncomplicated; F17.210 Nicotine dependence, cigarettes, uncomplicated; D61.818 Other pancytopenia; E72.20 Disorder of urea cycle metabolism, unspecified; F19.280 Other psychoactive substance dependence with psychoactive substance-induced anxiety disorder; F19.282 Other psychoactive substance dependence with psychoactive substance-induced sleep disorder; F19.24 Other psychoactive substance dependence with psychoactive substance-induced mood disorder; I11.0 Hypertensive heart disease with heart failure; I50.9 Heart failure, unspecified; K21.9 Gastro-esophageal reflux disease without esophagitis; M51.26 Other intervertebral disc displacement, lumbar region; G89.29 Other chronic pain; R74.8 Abnormal levels of other serum enzymes; Z86.11 Personal history of tuberculosis; Z99.89 Dependence on other enabling machines and devices
CPT/HCPCS: 36415; 71045-TC-FY; 80053; 80307; 82140; 82962; 85027; 86780; 93005; 93010

== ENCOUNTER 2023-12-14 12:37 | Inpatient (IN) | payer OTHER ==
[2023-12-14 14:07] LABS: BASO % 0.5 % (0-2.0); EOS % 1.1 % (0-4.5); HEMATOCRIT 34.2 % (35.4-49); HEMOGLOBIN 11.4 GM/dL (11.7-16.9); LYMPH % 19.8 % (8-40); MCH 31.6 pg (25.7-33.7); MCHC 33.2 g/dl (32.0-35.9); MEAN CELL VOLUME 95.1 fl (80-96); MEAN PLT VOLUME 9.7 fl (7.5-11.1); MONO % 11.1 % (3.8-10.2); NEUT % 67.5 % (42.8-82.8); PLATELET COUNT 49 10^3/uL (134-434); WHITE BLOOD COUNT 7.5 K/mm3 (4.0-10.0)
[2023-12-14 14:16] LABS: INR 1.77 (0.83-1.09); PROTHROMBIN TIME (PATIENT) 20.4 SEC (9.7-13.0)
[2023-12-14 14:19] LABS: ACTIVATED PTT 36.6 SECONDS (25.2-36.5)
[2023-12-14 14:24] LABS: POTASSIUM 3.5 mmol/L (3.5-5.1)
[2023-12-14 14:26] LABS: ALBUMIN 2.7 g/dl (3.4-5.0); BLOOD UREA NITROGEN 24.9 mg/dL (7-18); CALCIUM 9.6 mg/dL (8.5-10.1); MAGNESIUM 1.9 mg/dL (1.8-2.4)
[2023-12-14 14:29] LABS: CREATININE 1.1 mg/dL (0.55-1.3)
[2023-12-14 14:31] LABS: BILIRUBIN,TOTAL 4.2 mg/dL (0.2-1); TOT PROT 8.4 g/dl (6.4-8.2)
[2023-12-14 14:33] LABS: ANISOCYTOSIS 2+; MACROCYTOSIS 0; OVALOCYTE 1+
[2023-12-14] MEDS ORDERED: ALBUTEROL SO4 2.5/IPRATROPIUM 0.5 INH SOL 3 ML VIAL.NEB. NEB ONE ×2 (15:32→16:31)
[2023-12-14 15:55] LABS: N-TERMINAL BNP 22.5 pg/ml (5-125)
[2023-12-14] MEDS: ALBUTEROL SO4 2.5/IPRATROPIUM 0.5 INH SOL 3 ML VIAL.NEB. NEB SCH (16:22)
[2023-12-14] MEDS ORDERED: DOXYCYCLINE HYCLATE 100 MG VIAL ONE (16:25)
[2023-12-14] MEDS ORDERED: cefTRIAXone SODIUM 1 GM VIAL ONE (16:25)
[2023-12-14] MEDS: DOXYCYCLINE INJECTION 100 MG in DEXTROSE 5%-WATER 100 ML IVPB ONE (16:48)
[2023-12-14] MEDS: CEFTRIAXONE 1,000 MG in DEXTROSE 5%-WATER - 50 ML IVPB ONE (16:48)
[2023-12-14] MEDS ORDERED: LACTULOSE 20 GM/30 ML UDC (FOR ORAL USE ONLY) PO SCH (22:00)
[2023-12-14] MEDS ORDERED: HEPARIN NA (PORCINE) 5,000 UNITS/ML 1ML VIAL SQ SCH (22:00)
[2023-12-15 01:16] VITALS: BMI 32.7
[2023-12-15] MEDS: DOXYCYCLINE INJECTION 100 MG in DEXTROSE 5%-WATER 100 ML IVPB SCH (01:46)
[2023-12-15 08:29] LABS: EPI CELLS 11 /uL (0-25.1); HYALINE CASTS 0 /uL (0-3.1); URINE APPEARANCE CLEAR; URINE BACTERIA 499 /uL (0-1359); URINE BILIRUBIN 1+ (NEGATIVE); URINE COLOR DK YELLOW; URINE GLUCOSE (UA) NEGATIVE (NEGATIVE); URINE KETONE NEGATIVE (NEGATIVE); URINE LEUK ESTERASE TRACE (NEGATIVE); URINE NITRITE NEGATIVE (NEGATIVE); URINE PROTEIN NEGATIVE (NEGATIVE); URINE RBC 6 /uL (0-23.9); URINE UROBILINOGEN 4.0 E.U/dl mg/dL (0.2-1.0); URINE WBC 35 /uL (0-25.8)
[2023-12-15 08:34] LABS: BASO % 0.4 % (0-2.0); EOS % 2.3 % (0-4.5); HEMATOCRIT 34.4 % (35.4-49); HEMOGLOBIN 11.3 GM/dL (11.7-16.9); LYMPH % 25.1 % (8-40); MCH 31.5 pg (25.7-33.7); MCHC 32.7 g/dl (32.0-35.9); MEAN CELL VOLUME 96.3 fl (80-96); MEAN PLT VOLUME 10.1 fl (7.5-11.1); MONO % 11.8 % (3.8-10.2); NEUT % 60.4 % (42.8-82.8); PLATELET COUNT 61 10^3/uL (134-434); RBC 3.58 M/mm3 (4.00-5.60); RDW 21.5 % (11.9-15.9); WHITE BLOOD COUNT 5.4 K/mm3 (4.0-10.0)
[2023-12-15 08:55] LABS: POTASSIUM 3.6 mmol/L (3.5-5.1)
[2023-12-15 09:05] LABS: ALBUMIN 2.5 g/dl (3.4-5.0); CALCIUM 8.5 mg/dL (8.5-10.1)
[2023-12-15 09:06] LABS: BLOOD UREA NITROGEN 20.7 mg/dL (7-18)
[2023-12-15 09:08] LABS: CREATININE 0.9 mg/dL (0.55-1.3)
[2023-12-15 09:10] LABS: BILIRUBIN,TOTAL 3.4 mg/dL (0.2-1)
[2023-12-15 09:11] LABS: TOT PROT 7.8 g/dl (6.4-8.2)
[2023-12-15] MEDS: CEFTRIAXONE 1 GM in DEXTROSE 5%-WATER - 50 ML IVPB SCH (09:51)
[2023-12-15] MEDS: LACTULOSE 20 GM/30 ML UDC (FOR ORAL USE ONLY) PO SCH ×2 (13:47→15:00)
[2023-12-15] MEDS ORDERED: LACTULOSE 20 GM/30 ML UDC (FOR ORAL USE ONLY) PO SCH (14:00)
[2023-12-15] MEDS: NICOTINE 21 MG/24 HOURS TOPICAL PATCH TD SCH (18:03)
[2023-12-15] MEDS: RIFAXIMIN 550 MG TABLET PO SCH (21:44)
[2023-12-15] MEDS: VARENICLINE TARTRATE 0.5 MG TAB PO SCH (21:44)
[2023-12-16 04:31] LABS: COCAINE, UR NEGATIVE (NEGATIVE); OPIATES, URI NEGATIVE (NEGATIVE); PHENCYCLIDINE,URINE NEGATIVE (NEGATIVE); URINE AMPHETAMINES NEGATIVE (NEGATIVE); URINE BARBITURATES NEGATIVE (NEGATIVE)
[2023-12-16 05:46] LABS: METHADONE, UR POSITIVE (NEGATIVE); URINE BENZODIAZEPINES POSITIVE (NEGATIVE)
[2023-12-16 07:41] LABS: INR 1.62 (0.83-1.09); PROTHROMBIN TIME (PATIENT) 18.7 SEC (9.7-13.0)
[2023-12-16 07:42] LABS: BASO % 0.4 % (0-2.0); EOS % 2.1 % (0-4.5); HEMATOCRIT 35.4 % (35.4-49); HEMOGLOBIN 11.1 GM/dL (11.7-16.9); LYMPH % 35.2 % (8-40); MCH 30.8 pg (25.7-33.7); MCHC 31.5 g/dl (32.0-35.9); MEAN CELL VOLUME 97.9 fl (80-96); MEAN PLT VOLUME 10.5 fl (7.5-11.1); MONO % 13.3 % (3.8-10.2); PLATELET COUNT 62 10^3/uL (134-434); RBC 3.61 M/mm3 (4.00-5.60); RDW 21.5 % (11.9-15.9)
[2023-12-16 07:56] LABS: POTASSIUM 3.5 mmol/L (3.5-5.1)
[2023-12-16 08:05] LABS: CALCIUM 8.5 mg/dL (8.5-10.1)
[2023-12-16 08:06] LABS: ALBUMIN 2.5 g/dl (3.4-5.0); BLOOD UREA NITROGEN 18.3 mg/dL (7-18); MAGNESIUM 1.7 mg/dL (1.8-2.4)
[2023-12-16 08:07] LABS: CREATININE 0.9 mg/dL (0.55-1.3)
[2023-12-16 08:09] LABS: PHOSPHOROUS 3.3 mg/dL (2.5-4.9)
[2023-12-16 08:10] LABS: BILIRUBIN,TOTAL 2.6 mg/dL (0.2-1); TOT PROT 7.9 g/dl (6.4-8.2)
[2023-12-16] MEDS: CARVEDILOL 3.125 MG TABLET (FP) PO SCH (11:31)
[2023-12-16] MEDS: DOXYCYCLINE HYCLATE 100 MG CAPSULE PO SCH (18:21)
[2023-12-17] MEDS: methaDONE HCL 40 MG DISPERSABLE TABLET PO SCH (06:11)
[2023-12-17 08:18] LABS: POTASSIUM 3.6 mmol/L (3.5-5.1)
[2023-12-17 08:22] LABS: ALBUMIN 2.4 g/dl (3.4-5.0); BLOOD UREA NITROGEN 14.1 mg/dL (7-18); CALCIUM 8.8 mg/dL (8.5-10.1)
[2023-12-17 08:25] LABS: CREATININE 0.7 mg/dL (0.55-1.3)
[2023-12-17 08:27] LABS: BILIRUBIN,TOTAL 3.2 mg/dL (0.2-1); TOT PROT 7.7 g/dl (6.4-8.2)
[2023-12-17 08:36] LABS: BASO % 0.7 % (0-2.0); EOS % 3.2 % (0-4.5); HEMATOCRIT 35.9 % (35.4-49); HEMOGLOBIN 11.3 GM/dL (11.7-16.9); LYMPH % 40.2 % (8-40); MCH 30.7 pg (25.7-33.7); MCHC 31.5 g/dl (32.0-35.9); MEAN CELL VOLUME 97.3 fl (80-96); MONO % 16.3 % (3.8-10.2); NEUT % 39.6 % (42.8-82.8); PLATELET COUNT 66 10^3/uL (134-434); RBC 3.69 M/mm3 (4.00-5.60); RDW 21.4 % (11.9-15.9); WHITE BLOOD COUNT 3.4 K/mm3 (4.0-10.0)
[2023-12-17] MEDS: ASCORBIC ACID 250 MG TABLET (FP) PO SCH (11:53)
[2023-12-17] MEDS: MULTIVITAMINS (DAILY MVI) TABLET (FP) PO SCH (11:54)
[2023-12-17] MEDS: MAGNESIUM OXIDE 400 MG TABLET (FP) PO ONE (12:30)
[2023-12-17 14:10] VITALS: BP 118/74; PULSE 66; RESP 118; TEMP 98.1
== END 2023-12-17 17:43 | disposition home or self-care (01) | DRG 139 ==
LOC: JER 12:37 → JERBED 16:18 → J4W 22:54
PROVIDERS: ADMIT Internal Medicine; ATTEND Internal Medicine
DX: J18.9 Pneumonia, unspecified organism (principal); R55 Syncope and collapse; N40.0 Benign prostatic hyperplasia without lower urinary tract symptoms; K70.30 Alcoholic cirrhosis of liver without ascites; F10.20 Alcohol dependence, uncomplicated; F11.20 Opioid dependence, uncomplicated; I11.0 Hypertensive heart disease with heart failure; J96.01 Acute respiratory failure with hypoxia; I47.20 Ventricular tachycardia, unspecified; K76.0 Fatty (change of) liver, not elsewhere classified; I47.10 Supraventricular tachycardia, unspecified; I85.10 Secondary esophageal varices without bleeding; K83.8 Other specified diseases of biliary tract; I50.32 Chronic diastolic (congestive) heart failure
CPT/HCPCS: 36415; 70450-TC; 71045-TC-FY; 72125-TC; 72170-TC-FY; 76705-TC; 80048; 80053; 80076; 80307; 81003; 82105; 82140; 82607; 82746; 83036; 83735; 83880; 84100; 84443; 84484; 85025; 85610; 85730; 87086; 87186; 93005; 93010; 93306-TC; 94761; 97116-GP; 97161-GP; 99285-25

== ENCOUNTER 2024-01-23 14:10 | Inpatient (IN) | payer OTHER ==
[2024-01-23 15:52] VITALS: BMI 34.7
[2024-01-23] MEDS ORDERED: IBUPROFEN 600 MG TABLET (FP) PO PRN (19:33)
[2024-01-23] MEDS ORDERED: NALOXONE HCL (KLOXXADO) 8 MG SPRAY NS PRN (19:33)
[2024-01-23] MEDS ORDERED: MAG HYDROX/AL HYDROX/SIMETH 30 ML UNIT-DOSE CUP PO PRN (19:33)
[2024-01-23] MEDS ORDERED: BISMUTH SUBSALICYLATE 524 MG/30 ML PO PRN (19:33)
[2024-01-23] MEDS ORDERED: hydrOXYzine PAMOATE 25 MG CAPSULE (FP) PO PRN (19:33)
[2024-01-23] MEDS ORDERED: BENZONATATE 200 MG CAPSULE PO PRN (19:33)
[2024-01-23] MEDS ORDERED: guaiFENesin 600 MG TABLET.ER (FP) PO PRN (19:33)
[2024-01-23] MEDS ORDERED: MAGNESIUM HYDROX 2400MG/30ML ORAL SUSPENSION 30 ML CUP PO PRN (19:33)
[2024-01-23] MEDS ORDERED: BENZOCAINE/MENTHOL (CHLORASEPTIC ) LOZENGE MM PRN (19:33)
[2024-01-23] MEDS ORDERED: DICYCLOMINE HCL 10 MG CAPSULE PO PRN (19:33)
[2024-01-23] MEDS ORDERED: NALOXONE HCL 0.4 MG/ML VIAL IM PRN (19:33)
[2024-01-23] MEDS ORDERED: POLYETHYLENE GLYCOL (HEALTHYLAX) 3350 17 GM PACKET PO PRN (19:33)
[2024-01-23] MEDS ORDERED: IBUPROFEN 400 MG TABLET (FP) PO PRN (19:33)
[2024-01-23] MEDS ORDERED: LOPERAMIDE HCL 2 MG CAPSULE PO PRN (19:33)
[2024-01-23] MEDS ORDERED: ACETAMINOPHEN 325 MG TABLET (FP) PO PRN (19:33)
[2024-01-23] MEDS ORDERED: ALBUTEROL SO4 HFA INHALER IH PRN (19:34)
[2024-01-23] MEDS: RIFAXIMIN 550 MG TABLET PO SCH (22:16)
[2024-01-23] MEDS: TAMSULOSIN HCL 0.4 MG CAP PO SCH (22:16)
[2024-01-23] MEDS: CARVEDILOL 3.125 MG TABLET (FP) PO SCH (22:16)
[2024-01-23] MEDS: THIAMINE 100 MG TABLET PO SCH (22:22)
[2024-01-23] MEDS: MELATONIN 5 MG TABLETS PO SCH (22:22)
[2024-01-23] MEDS: METHOCARBAMOL 500 MG TABLET PO PRN (22:22)
[2024-01-24] MEDS: ONDANSETRON *ODT* 4 MG TABLET SL PRN (02:47)
[2024-01-24] MEDS: methaDONE HCL 40 MG DISPERSABLE TABLET PO SCH (09:18)
[2024-01-24] MEDS: PANTOPRAZOLE 40 MG TABLET PO SCH (09:19)
[2024-01-24] MEDS: PRENATAL VITAMINS W/ FOLIC ACID TABLET (FP) PO SCH (09:19)
[2024-01-24] MEDS ORDERED: LORazepam 1 MG TABLET PO PRN (10:01)
[2024-01-24] MEDS: LORazepam 2 MG TABLET PO SCH (10:44)
[2024-01-24 12:35] LABS: HEMATOCRIT 33.2 % (35.4-49); MCH 32.2 pg (25.7-33.7); MCHC 33.1 g/dl (32.0-35.9); MEAN CELL VOLUME 97.1 fl (80-96); MEAN PLT VOLUME 9.7 fl (7.5-11.1); PLATELET COUNT 48 10^3/uL (134-434); RBC 3.42 M/mm3 (4.00-5.60); RDW 17.7 % (11.9-15.9); WHITE BLOOD COUNT 2.5 K/mm3 (4.0-10.0)
[2024-01-24 12:46] LABS: POTASSIUM 3.8 mmol/L (3.5-5.1)
[2024-01-24 12:48] LABS: BLOOD UREA NITROGEN 4.6 mg/dL (7-18)
[2024-01-24 12:50] LABS: ALBUMIN 2.5 g/dl (3.4-5.0)
[2024-01-24 12:52] LABS: CREATININE 0.6 mg/dL (0.55-1.3)
[2024-01-24 12:53] LABS: BILIRUBIN,TOTAL 1.8 mg/dL (0.2-1); TOT PROT 7.9 g/dl (6.4-8.2)
[2024-01-24] MEDS: ALBUTEROL SO4 2.5/IPRATROPIUM 0.5 INH SOL 3 ML VIAL.NEB. NEB PRN (13:42)
[2024-01-24] MEDS: predniSONE 20 MG TABLET (UD) PO SCH (13:42)
[2024-01-25] MEDS: LACTULOSE 20 GM/30 ML UDC (FOR ORAL USE ONLY) PO SCH (21:28)
[2024-01-26] MEDS: LORazepam 1 MG TABLET PO SCH (05:47)
[2024-01-27] MEDS ORDERED: LORazepam 0.5 MG TABLET PO PRN
[2024-01-27] MEDS: LORazepam 0.5 MG TABLET PO SCH (05:56)
[2024-01-27 21:01] VITALS: TEMP 97.7
[2024-01-28] MEDS: LORazepam 0.5 MG TABLET PO ONE (05:37)
[2024-01-28 09:22] VITALS: BP 100/60; PULSE 69; RESP 18
== END 2024-01-28 09:10 | disposition home or self-care (01) | DRG 773 ==
LOC: YASAS 14:10 → Y3N 19:44
PROVIDERS: ADMIT Allergy & Immunology; ATTEND Surgery
PROC: HZ2ZZZZ Detoxification Services for Substance Abuse Treatment (ICD-10-PCS; principal; 2024-01-23)
DX: F10.230 Alcohol dependence with withdrawal, uncomplicated (principal); F11.20 Opioid dependence, uncomplicated; F17.210 Nicotine dependence, cigarettes, uncomplicated; D61.818 Other pancytopenia; E72.20 Disorder of urea cycle metabolism, unspecified; I10 Essential (primary) hypertension; K21.9 Gastro-esophageal reflux disease without esophagitis; R74.8 Abnormal levels of other serum enzymes; Z86.19 Personal history of other infectious and parasitic diseases; Z86.11 Personal history of tuberculosis; Z99.89 Dependence on other enabling machines and devices
CPT/HCPCS: 36415; 71046-TC-FY; 80053; 80305; 80307; 82140; 85027; 86780; 93005; 93010; 94640; Q0162

== ENCOUNTER 2024-02-25 12:21 | Inpatient (IN) | payer OTHER ==
[2024-02-25 13:17] VITALS: BMI 30.2
[2024-02-25] MEDS ORDERED: BENZOCAINE/MENTHOL (CHLORASEPTIC ) LOZENGE MM PRN (18:02)
[2024-02-25] MEDS ORDERED: POLYETHYLENE GLYCOL (HEALTHYLAX) 3350 17 GM PACKET PO PRN (18:02)
[2024-02-25] MEDS ORDERED: IBUPROFEN 400 MG TABLET (FP) PO PRN (18:02)
[2024-02-25] MEDS ORDERED: NALOXONE HCL 0.4 MG/ML VIAL IM PRN (18:02)
[2024-02-25] MEDS ORDERED: DICYCLOMINE HCL 10 MG CAPSULE PO PRN (18:02)
[2024-02-25] MEDS ORDERED: MAGNESIUM HYDROX 2400MG/30ML ORAL SUSPENSION 30 ML CUP PO PRN (18:02)
[2024-02-25] MEDS ORDERED: NALOXONE (NARCAN) HCL 4 MG/0.1 ML SPRAY NS PRN (18:02)
[2024-02-25] MEDS ORDERED: BISMUTH SUBSALICYLATE 524 MG/30 ML PO PRN (18:02)
[2024-02-25] MEDS ORDERED: hydrOXYzine PAMOATE 25 MG CAPSULE (FP) PO PRN (18:02)
[2024-02-25] MEDS ORDERED: LOPERAMIDE HCL 2 MG CAPSULE PO PRN (18:02)
[2024-02-25] MEDS ORDERED: MAG HYDROX/AL HYDROX/SIMETH 30 ML UNIT-DOSE CUP PO PRN (18:02)
[2024-02-25] MEDS ORDERED: guaiFENesin 600 MG TABLET.ER (FP) PO PRN (18:02)
[2024-02-25] MEDS ORDERED: BENZONATATE 200 MG CAPSULE PO PRN (18:02)
[2024-02-25] MEDS ORDERED: ONDANSETRON *ODT* 4 MG TABLET SL PRN (18:02)
[2024-02-25] MEDS: THIAMINE 100 MG TABLET PO SCH (22:26)
[2024-02-25] MEDS: diazePAM 5 MG TABLET PO SCH (22:27)
[2024-02-25] MEDS: METHOCARBAMOL 500 MG TABLET PO PRN (22:27)
[2024-02-25] MEDS: MELATONIN 5 MG TABLETS PO SCH (22:28)
[2024-02-26] MEDS ORDERED: methaDONE HCL 10 MG TABLET PO ONE (10:49)
[2024-02-26] MEDS: PRENATAL VITAMINS W/ FOLIC ACID TABLET (FP) PO SCH (10:58)
[2024-02-26] MEDS: methaDONE 40 MG, methaDONE 20 MG PO ONE (11:14)
[2024-02-26 11:42] LABS: HEMATOCRIT 35.2 % (35.4-49); HEMOGLOBIN 11.7 GM/dL (11.7-16.9); MCH 32.6 pg (25.7-33.7); MCHC 33.2 g/dl (32.0-35.9); MEAN CELL VOLUME 98.3 fl (80-96); MEAN PLT VOLUME 9.3 fl (7.5-11.1); RBC 3.58 M/mm3 (4.00-5.60); RDW 17.4 % (11.9-15.9)
[2024-02-26 11:49] LABS: POTASSIUM 3.8 mmol/L (3.5-5.1)
[2024-02-26 11:59] LABS: ALBUMIN 2.4 g/dl (3.4-5.0); BLOOD UREA NITROGEN 3.6 mg/dL (7-18)
[2024-02-26 12:02] LABS: CREATININE 0.5 mg/dL (0.55-1.3)
[2024-02-26 12:03] LABS: BILIRUBIN,TOTAL 3.2 mg/dL (0.2-1); TOT PROT 7.8 g/dl (6.4-8.2)
[2024-02-26 12:04] LABS: PLATELET COUNT 31 10^3/uL (134-434)
[2024-02-26] MEDS: TAMSULOSIN HCL 0.4 MG CAP PO SCH (21:23)
[2024-02-26] MEDS: CARVEDILOL 3.125 MG TABLET (FP) PO SCH (21:23)
[2024-02-26] MEDS: ACETAMINOPHEN 325 MG TABLET (FP) PO PRN (21:24)
[2024-02-26] MEDS: ALBUTEROL SO4 HFA INHALER IH PRN (21:31)
[2024-02-26] MEDS: diazePAM 5 MG TABLET PO PRN (21:32)
[2024-02-27] MEDS: diazePAM 5 MG TABLET PO SCH (06:00)
[2024-02-27] MEDS: methaDONE 40 MG, methaDONE 30 MG PO ONE (06:01)
[2024-02-27] MEDS: PANTOPRAZOLE 40 MG TABLET PO SCH (09:26)
[2024-02-27] MEDS: IBUPROFEN 600 MG TABLET (FP) PO PRN (09:26)
[2024-02-27 11:59] LABS: HEMATOCRIT 36.5 % (35.4-49); HEMOGLOBIN 11.9 GM/dL (11.7-16.9); MCH 32.3 pg (25.7-33.7); MCHC 32.6 g/dl (32.0-35.9); MEAN CELL VOLUME 99.1 fl (80-96); MEAN PLT VOLUME 9.7 fl (7.5-11.1); RBC 3.68 M/mm3 (4.00-5.60); RDW 18.1 % (11.9-15.9); WHITE BLOOD COUNT 2.6 K/mm3 (4.0-10.0)
[2024-02-27 12:07] LABS: PLATELET COUNT 31 10^3/uL (134-434)
[2024-02-27 12:20] LABS: POTASSIUM 3.5 mmol/L (3.5-5.1)
[2024-02-27 12:24] LABS: ALBUMIN 2.5 g/dl (3.4-5.0); CALCIUM 8.6 mg/dL (8.5-10.1)
[2024-02-27 12:25] LABS: BLOOD UREA NITROGEN 4.4 mg/dL (7-18)
[2024-02-27 12:29] LABS: CREATININE 0.6 mg/dL (0.55-1.3)
[2024-02-27 12:31] LABS: BILIRUBIN,TOTAL 5.6 mg/dL (0.2-1); TOT PROT 7.7 g/dl (6.4-8.2)
[2024-02-27] MEDS: LACTULOSE 20 GM/30 ML UDC (FOR ORAL USE ONLY) PO ONE (14:44)
[2024-02-27] MEDS: LACTULOSE 20 GM/30 ML UDC (FOR ORAL USE ONLY) PO SCH (14:44)
[2024-02-27] MEDS: RIFAXIMIN 550 MG TABLET PO SCH (23:21)
[2024-02-28] MEDS: diazePAM 5 MG TABLET PO SCH (05:39)
[2024-02-28] MEDS: methaDONE HCL 40 MG DISPERSABLE TABLET PO SCH (05:40)
[2024-02-28 10:52] VITALS: RESP 16
[2024-02-28 11:49] LABS: HEMATOCRIT 37.2 % (35.4-49); MCH 31.8 pg (25.7-33.7); MCHC 32.2 g/dl (32.0-35.9); MEAN CELL VOLUME 98.7 fl (80-96); MEAN PLT VOLUME 10.3 fl (7.5-11.1); RBC 3.76 M/mm3 (4.00-5.60); RDW 18.1 % (11.9-15.9); WHITE BLOOD COUNT 2.7 K/mm3 (4.0-10.0)
[2024-02-28 11:53] LABS: PLATELET COUNT 35 10^3/uL (134-434); POTASSIUM 3.7 mmol/L (3.5-5.1)
[2024-02-28 12:03] LABS: ALBUMIN 2.5 g/dl (3.4-5.0)
[2024-02-28 12:06] LABS: CREATININE 0.9 mg/dL (0.55-1.3)
[2024-02-28 12:08] LABS: BILIRUBIN,TOTAL 4.9 mg/dL (0.2-1)
[2024-02-29] MEDS: diazePAM 5 MG TABLET PO ONE (05:38)
[2024-02-29 09:14] VITALS: BP 107/66; PULSE 77; TEMP 98.9
[2024-02-29 12:40] LABS: HEMATOCRIT 36.5 % (35.4-49); HEMOGLOBIN 12.1 GM/dL (11.7-16.9); MCH 32.8 pg (25.7-33.7); MCHC 33.2 g/dl (32.0-35.9); MEAN CELL VOLUME 98.7 fl (80-96); MEAN PLT VOLUME 10.3 fl (7.5-11.1); PLATELET COUNT 41 10^3/uL (134-434); WHITE BLOOD COUNT 3.2 K/mm3 (4.0-10.0)
[2024-02-29 14:13] LABS: POTASSIUM 3.7 mmol/L (3.5-5.1)
[2024-02-29 14:21] LABS: ALBUMIN 2.6 g/dl (3.4-5.0); BLOOD UREA NITROGEN 14.6 mg/dL (7-18); CALCIUM 9.2 mg/dL (8.5-10.1)
[2024-02-29 14:26] LABS: BILIRUBIN,TOTAL 4.3 mg/dL (0.2-1); TOT PROT 7.8 g/dl (6.4-8.2)
[2024-02-29 14:28] LABS: CREATININE 0.9 mg/dL (0.55-1.3)
== END 2024-02-29 12:10 | disposition home or self-care (01) | DRG 773 ==
LOC: YASAS 12:21 → Y6N 18:29
PROVIDERS: ADMIT Allergy & Immunology; ATTEND Surgery
PROC: HZ2ZZZZ Detoxification Services for Substance Abuse Treatment (ICD-10-PCS; principal; 2024-02-25)
DX: F10.230 Alcohol dependence with withdrawal, uncomplicated (principal); F11.20 Opioid dependence, uncomplicated; F17.210 Nicotine dependence, cigarettes, uncomplicated; D72.819 Decreased white blood cell count, unspecified; D69.6 Thrombocytopenia, unspecified; I11.0 Hypertensive heart disease with heart failure; I50.9 Heart failure, unspecified; J45.909 Unspecified asthma, uncomplicated; K21.9 Gastro-esophageal reflux disease without esophagitis; M51.26 Other intervertebral disc displacement, lumbar region; G89.29 Other chronic pain; R79.89 Other specified abnormal findings of blood chemistry; Z86.11 Personal history of tuberculosis; Z99.89 Dependence on other enabling machines and devices
CPT/HCPCS: 36415; 80053; 80305; 80307; 82140; 85027; 86780

== ENCOUNTER 2024-02-26 23:22 | Emergency (ER) | payer OTHER ==
[2024-02-27] MEDS ORDERED: ALBUTEROL SO4 2.5/IPRATROPIUM 0.5 INH SOL 3 ML VIAL.NEB. NEB ONE (00:48)
[2024-02-27 00:51] VITALS: BP 126/62; PULSE 77; RESP 17; TEMP 98.8; BMI 33.3
[2024-02-27] MEDS: ALBUTEROL SO4 2.5/IPRATROPIUM 0.5 INH SOL 3 ML VIAL.NEB. NEB ONE (01:22)
[2024-02-27 01:25] LABS: VENOUS BASE EXCESS 9.6 mmol/L (-2-2); VENOUS O2 SATURATION 78.7 % (70-80); VENOUS PCO2 49.5 mmHg (38-52); VENOUS PH 7.466 (7.310-7.410)
[2024-02-27] MEDS ORDERED: diazePAM 5 MG TABLET ONE (01:25)
[2024-02-27] MEDS: diazePAM 5 MG TABLET PO ONE (01:29)
[2024-02-27 01:34] LABS: INR 1.83 (0.83-1.09); PROTHROMBIN TIME (PATIENT) 20.7 SEC (9.7-13.0)
[2024-02-27 01:35] LABS: BASO % 1.1 % (0-2.0); EOS % 0.1 % (0-4.5); HEMATOCRIT 38.3 % (35.4-49); HEMOGLOBIN 12.5 GM/dL (11.7-16.9); LYMPH % 31.8 % (8-40); MCH 32.4 pg (25.7-33.7); MCHC 32.7 g/dl (32.0-35.9); MEAN CELL VOLUME 99.1 fl (80-96); MEAN PLT VOLUME 9.8 fl (7.5-11.1); MONO % 15.7 % (3.8-10.2); NEUT % 51.3 % (42.8-82.8); RBC 3.87 M/mm3 (4.00-5.60); RDW 17.6 % (11.9-15.9); WHITE BLOOD COUNT 2.3 K/mm3 (4.0-10.0)
[2024-02-27 01:36] LABS: ACTIVATED PTT 40.8 SECONDS (25.2-36.5)
[2024-02-27 01:38] LABS: PLATELET COUNT 35 10^3/uL (134-434)
[2024-02-27 01:47] LABS: ALBUMIN 2.6 g/dl (3.4-5.0); BLOOD UREA NITROGEN 3.6 mg/dL (7-18); CALCIUM 8.7 mg/dL (8.5-10.1); MAGNESIUM 1.3 mg/dL (1.8-2.4)
[2024-02-27 01:51] LABS: CREATININE 0.6 mg/dL (0.55-1.3)
[2024-02-27 01:52] LABS: TOT PROT 8.3 g/dl (6.4-8.2)
[2024-02-27 01:58] LABS: BILIRUBIN,TOTAL 5.4 mg/dL (0.2-1)
[2024-02-27] MEDS ORDERED: MAGNESIUM SULFATE IN WATER 2 GM/50 ML IVPB IVPB ONE (02:18)
[2024-02-27] MEDS: MAGNESIUM SULF 50% (8.12 MEQ/2 ML-1 GM VIAL) IVPB ONE (02:33)
== END 2024-02-27 03:14 | disposition home or self-care (01) ==
LOC: JER 23:22
PROC: 3E033GC Introduction of Other Therapeutic Substance into Peripheral Vein, Percutaneous Approach (ICD-10-PCS; principal; 2024-02-27)
PROC: 3E0F7GC Introduction of Other Therapeutic Substance into Respiratory Tract, Via Natural or Artificial Opening (ICD-10-PCS; 2024-02-27)
DX: F10.230 Alcohol dependence with withdrawal, uncomplicated (principal); R05.9 Cough, unspecified; D69.6 Thrombocytopenia, unspecified; D72.819 Decreased white blood cell count, unspecified; R50.9 Fever, unspecified; Z20.822 Contact with and (suspected) exposure to COVID-19
CPT/HCPCS: 0241U-QW; 36415; 71045-TC-FY; 80053; 82803; 83735; 84484; 85025; 85610; 85730; 93005; 93010; 99291